=== PATIENT | male | born 1955 | race African-American/Black ===

== ENCOUNTER 2018-02-04 02:34 | Emergency (ER) | payer OTHER ==
--- NOTE | 2018-02-04 03:28 | ER ---
Nurse's Notes [facility] Name: Erick Benson Age: 62 yrs Sex: Male : 1955 Arrival Date: 02/04/2018 Time: 02:35 Bed 7 Private MD: Diagnosis: Breakdown (mechanical) of surgically created arteriovenous fistula Presentation: 02/04 02:41 Presenting complaint: Patient states: Bleeding from dialysis access in left forearm tl2 since Thursday after dialysis. Went to access center on Thursday but it was not bleeding at the time so they sent him home. Started bleeding again tonight on and off. Denies dizziness or nausea. Transition of care: patient was not received from another setting of care. Onset of symptoms was February 02, 2018. Risk Assessment: Do you want to hurt yourself or someone else? Patient reports no desire to harm self or others. Initial Sepsis Screen: Does the patient meet any 2 criteria? No. Patient's initial sepsis screen is negative. Does the patient have a suspected source of infection? No. Patient's initial sepsis screen is negative. Care prior to arrival: None. 02:41 Method Of Arrival: EMS: [facility] tl2 02:41 Acuity: ANCELMO 3 tl2 Triage Assessment: 02:45 General: Appears in no apparent distress. uncomfortable, Behavior is calm, cooperative, tl2 appropriate for age. Pain: Complains of pain in palmar aspect of left forearm. Neuro: Level of Consciousness is awake, alert, obeys commands, Oriented to person, place, time, situation. Neuro: Denies dizziness. Cardiovascular: Denies chest pain. Respiratory: Airway is patent Respiratory effort is even, unlabored, Respiratory pattern is regular, symmetrical. GI: No signs and/or symptoms were reported involving the gastrointestinal system. : No signs and/or symptoms were reported regarding the genitourinary system. Derm: Skin is pink, warm \T\ dry. Injury Description: hole in access point of dialysis port, unable to control bleeding. Historical: - Allergies: 02:45 No Known Allergies; tl2 - Home Meds: 02:45 Sensipar oral oral [Active]; Renvela oral oral [Active]; metoprolol tartrate Oral tl2 [Active]; Nexium Oral [Active]; - PMHx: 02:45 CHF; Renal Disease; Hypertension; dialysis /Thurs/Sat; tl2 - Immunization history:: Adult Immunizations up to date. - Social history:: Smoking status: Patient/guardian denies using tobacco. - Ebola Screening: : No symptoms or risks identified at this time. Screenin:47 Abuse screen: Denies threats or abuse. Nutritional screening: No deficits noted. tl2 Tuberculosis screening: No symptoms or risk factors identified. Fall Risk None identified. Assessment: 02:45 General: see triage assessment. tl2 04:12 Reassessment: Patient appears in no apparent distress at this time. Patient and/or tl2 family updated on plan of care and expected duration. Pain level reassessed. Patient is alert, oriented x 3, equal unlabored respirations, skin warm/dry/pink. Notified pt that we will have to get labs before he can be transferred. Lab at bedside. 07:48 Reassessment: Access port began bleeding, pressure dressing removed and could not tl2 control bleeding. Dr. To notified and assisted with placing a stitch to control bleeding. Procedure successful and pressure dressing applied. Will attempt to call report for transfer. 08:30 Reassessment: Patient and/or family updated on plan of care and expected duration. Pain jl7 level reassessed. Patient is alert, oriented x 3, equal unlabored respirations, skin warm/dry/pink. Vital Signs: 02:45 BP 136 / 75; Pulse 94; Resp 18; Temp 99.5(O); Pulse Ox 99% on R/A; Weight 98.88 kg; tl2 Height 5 ft. 8 in. (172.72 cm); Pain 3/10; 04:00 BP 122 / 64; Pulse 84; Resp 18; Pulse Ox 99% on R/A; tl2 07:15 BP 126 / 71; Pulse 106; Resp 20; Temp 102.8(O); Pulse Ox 100% on R/A; tl2 08:47 BP 98 / 63; Pulse 106; Resp 16; Pulse Ox 95% on R/A; hb 09:05 BP 111 / 62; Pulse 88; Resp 16; Temp 100.5; Pulse Ox 95% ; jl7 02:45 Body Mass Index 33.15 (98.88 kg, 172.72 cm) tl2 ED Course: 02:35 Patient arrived in ED. am2 02:43 Triage completed. tl2 02:45 Arm band placed on right wrist. tl2 02:47 Patient has correct armband on for positive identification. Bed in low position. Call tl2 light in reach. Side rails up X 1. Adult w/ patient. 02:47 Dressings: surgicel and pressure dressing placed over bleeding access port. tl2 02:48 Jitendra Alexander MD is Attending Physician. 04:04 No provider procedures requiring assistance completed. Inserted saline lock: 22 gauge tl1 in right antecubital area, using aseptic technique. 07:34 Radiology exam delayed due to DR IS STITCHING PT. jb2 07:50 Assist provider with laceration repair on palmar aspect of left forearm that was 2.5 tl2 cm. or less using sutures. Set up tray. Performed by Junaid To MD Dressed with 4X4s, modesto wrap Patient tolerated well. 08:07 X-ray completed. Portable x-ray completed in exam room. Patient tolerated procedure jb2 well. 08:07 Chest Single View XRAY In Process Unspecified. EDMS 09:01 Becka Harrington, AMIE is Primary Nurse. tl2 09:05 Patient transferred, IV remains in place. intact, No redness/swelling at site. jl7 Administered Medications: 07:20 Drug: Tylenol 1000 mg Route: PO; tl1 09:06 Follow up: Response: Temperature is decreased jl7 Outcome: 03:28 ER care complete, transfer ordered by . gs 09:05 Transferred by ground EMS to [facility], Transfer form completed. jl7 09:05 Condition: stable 09:05 Discharge instructions given to patient, family, Instructed on the need for transfer, Demonstrated understanding of instructions. 09:44 Patient left the ED. jl7 Signatures: Dispatcher [employer] EDMS Justus Iglesias jb2 Pastora Chahal RN RN tl1 Fanta Krishnamurthy RN RN hb Becka Harrington RN RN tl2 Ranjit Devries RN RN jl7 Keeley Reyes am2 Jitendra Alexander MD MD Corrections: (The following items were deleted from the chart) 08:48 08:47 BP 98 / 63; Pulse 106bpm; Resp 16bpm; Pulse Ox 94% RA; hb hb
--- NOTE | 2018-02-04 03:28 | EDPHYS ---
Physician Documentation [facility] Name: Erick Benson Age: 62 yrs Sex: Male : 1955 Arrival Date: 02/04/2018 Time: 02:35 Bed 7 Private MD: ED Physician Jitendra Alexander HPI: 02/04 03:18 This 62 yrs old Black Male presents to ER via EMS with complaints of Bleeding from gs dialysis port. 03:18 The patient has an AV graft in the dorsal aspect of left forearm. Type of problem: gs bleeding at site. Onset: The symptoms/episode began/occurred just prior to arrival. The malfunction was discovered at home. Associated signs and symptoms: Pertinent positives: bleeding at site, Pertinent negatives: swelling, redness in area. The patient has experienced similar episodes in the past, a few times. The patient has been recently seen by a physician: a general surgeon, 2 day(s) ago. Historical: - Allergies: 02:45 No Known Allergies; tl2 - Home Meds: 02:45 Sensipar oral oral [Active]; Renvela oral oral [Active]; metoprolol tartrate Oral tl2 [Active]; Nexium Oral [Active]; - PMHx: 02:45 CHF; Renal Disease; Hypertension; dialysis Tues/Thurs/Thu; tl2 - Immunization history:: Adult Immunizations up to date. - Social history:: Smoking status: Patient/guardian denies using tobacco. - Ebola Screening: : No symptoms or risks identified at this time. ROS: 03:18 All other systems are negative. gs Exam: 03:18 ENT: Nares patent. No nasal discharge, no septal abnormalities noted. Tympanic gs membranes are normal and external auditory canals are clear. Oropharynx with no redness, swelling, or masses, exudates, or evidence of obstruction, uvula midline. Mucous membranes moist. Chest/axilla: Normal chest wall appearance and motion. Nontender with no deformity. No lesions are appreciated. Cardiovascular: Regular rate and rhythm with a normal S1 and S2. No gallops, murmurs, or rubs. Normal PMI, no JVD. No pulse deficits. Respiratory: Lungs have equal breath sounds bilaterally, clear to auscultation and percussion. No rales, rhonchi or wheezes noted. No increased work of breathing, no retractions or nasal flaring. Abdomen/GI: Soft, non-tender, with normal bowel sounds. No distension or tympany. No guarding or rebound. No evidence of tenderness throughout. Back: No spinal tenderness. No costovertebral tenderness. Full range of motion. Neuro: Awake and alert, GCS 15, oriented to person, place, time, and situation. Cranial nerves II-XII grossly intact. Motor strength 5/5 in all extremities. Sensory grossly intact. Cerebellar exam normal. Normal gait. 03:18 Constitutional: The patient appears alert, awake. 03:18 Musculoskeletal/extremity: Extremities: noted in the dorsal aspect of left forearm: ulcer overlying access graft, minimal bleeding. pt states significant bleeding from site this am, ROM: Circulation is intact in all extremities. Vital Signs: 02:45 BP 136 / 75; Pulse 94; Resp 18; Temp 99.5(O); Pulse Ox 99% on R/A; Weight 98.88 kg; tl2 Height 5 ft. 8 in. (172.72 cm); Pain 3/10; 04:00 BP 122 / 64; Pulse 84; Resp 18; Pulse Ox 99% on R/A; tl2 07:15 BP 126 / 71; Pulse 106; Resp 20; Temp 102.8(O); Pulse Ox 100% on R/A; tl2 08:47 BP 98 / 63; Pulse 106; Resp 16; Pulse Ox 95% on R/A; hb 09:05 BP 111 / 62; Pulse 88; Resp 16; Temp 100.5; Pulse Ox 95% ; jl7 02:45 Body Mass Index 33.15 (98.88 kg, 172.72 cm) tl2 Procedures: 07:54 Performed AV Fistula graft repair. The AV graft fistula was noted to be leaking by the [facility] nursing staff prior to transfer. After prep in sterile standard fashion and injection of 1 cc lidocaine, a single figure of eight stitch was placed and apparent homeostasis was achieved. An modesto wrap pressure dressing was applied snugly but not tight with no apparent continued bleeding from the fistula. The patient was transferred in stable condition. MDM: 02:48 Patient medically screened. 03:18 Differential diagnosis: shunt malfunction, infected shunt. Data reviewed: vital signs, nurses notes. 03:18 ED course: bleeding controlled. 02/04 03:38 Order name: CBC w/o diff; Complete Time: 04:59 02/04 03:38 Order name: BMP; Complete Time: 05:31 02/04 07:21 Order name: Chest Single View XRAY tl1 Administered Medications: 07:20 Drug: Tylenol 1000 mg Route: PO; tl1 09:06 Follow up: Response: Temperature is decreased jl7 Disposition: 02/04/18 03:28 Transfer ordered to [facility]. Diagnosis is Breakdown (mechanical) of surgically created arteriovenous fistula. - Reason for transfer: Higher level of care. - Accepting physician is meth. - Condition is Stable. - Problem is new. - Symptoms have improved. Critical care time excluding procedures: 03:18 Critical care time: Bedside Care: 10 minutes, Consultation: 10 minutes, Family gs Intervention: 10 minutes. Total time: 30 minutes Signatures: Dispatcher [employer] Junaid Sinclair MD MD [facility] Pastora Chahal RN RN tl1 Becka Harrington RN RN tl2 Ranjit Devries RN RN jl7 Jitendra Alexander MD MD Corrections: (The following items were deleted from the chart) 09:44 03:28 02/04/2018 03:28 Transfer ordered to [facility]. Diagnosis is jl7 Breakdown (mechanical) of surgically created arteriovenous fistula. Reason for transfer: Higher level of care. Accepting physician is meth. Condition is Stable. Problem is new. Symptoms have improved.
[2018-02-04 04:57] LABS: Hematocrit 37.3 % (39.6-49.0); MCH 26.6 pg (27.0-35.0); MCV 83.3 fL (80-100); MPV 9.2 fL (7.6-11.3); RBC Red Blood Cell Count 4.48 M/uL (4.33-5.43)
[2018-02-04 05:27] LABS: Potassium 3.8 mmol/L (3.5-5.1)
[2018-02-04] MEDS ORDERED: ACETAMINOPHEN 500 MG TAB ONE (07:17)
[2018-02-04] MEDS ORDERED: LIDOCAINE 2% MPF 5 ML VIAL ONE (07:34)
--- NOTE | 2018-02-04 09:01 | RAD REPORT ---
EXAM DESCRIPTION: RAD - Chest Single View - 02/04/2018 8:10 am CLINICAL HISTORY: Cough, shortness of breath COMPARISON: February 2015 TECHNIQUE: AP portable chest image was obtained [id number] . FINDINGS: Right lung field is clear of an acute infiltrate or mass. Upper lobe vasculature within no rmal limits. Fullness of the right pulmonary artery has not change from the comparison. Cardiac silho uette is enlarged. This limits left base assessment. No large mass or pleural effusions seen. A small er left base infiltrate could be masked. No significant failure or volume overload. No pneumothorax o r large pleural effusion. No gross bony abnormality seen. No acute aortic findings suspected. IMPRESSION: Cardiomegaly without significant failure or volume overload finding. Body habitus and exam technique limit left base assessment. Small infiltrate cannot be excluded.
[2018-02-04 09:59] VITALS: O2SAT 95
[2018-02-04 10:00] VITALS: BP 111/62; TEMP 100.5
== END 2018-02-04 09:44 | disposition short-term general hospital (02) ==
LOC: ER 02:34
PROC: 05WYX3Z Revision of Infusion Device in Upper Vein, External Approach (ICD-10-PCS; principal; 2018-02-04)
DX: T82.510A Breakdown (mechanical) of surgically created arteriovenous fistula, initial encounter (principal); I12.0 Hypertensive chronic kidney disease with stage 5 chronic kidney disease or end stage renal disease; N18.6 End stage renal disease; Z99.2 Dependence on renal dialysis
CPT/HCPCS: 36415; 71045; 80048; 85027; 99285

== ENCOUNTER 2018-02-19 07:44 | Day surgery (SDC) | payer OTHER ==
--- OUTSIDE RECORDS SUMMARY | 2018-02-19 08:01 | XMS REPORT | Clinical Summary ---
:1955 Author Organization [facility] Address [address] [place] [address] Care Team Providers Name Role Phone Asked, No Pcp Primary Care Provider Unavailable Allergies No Known Allergies Current Medications Prescription Sig. Disp. Refills Start Date End Date Status cinacalcet Take 30 mg by Active (SENSIPAR) 30 MG mouth daily. tablet esomeprazole Take 40 mg by Active (NexIUM) 40 MG mouth daily capsule before breakfast. sevelamer (RENVELA) Take 800 mg Active 800 mg tablet by mouth 3 (three) times a day with meals. cholecalciferol, Take 2,000 Active vitamin D3, Units by (VITAMIN D3) 2,000 mouth daily. unit capsule capsule apixaban (ELIQUIS) Take 5 mg by Active 5 mg tablet mouth 2 (two) times a day. lisinopril Take 1 tablet 30 tablet 0 02/13/2018 03/15/2018 Active (PRINIVIL,ZESTRIL) (5 mg total) 5 mg tablet by mouth daily for 30 days. metoprolol Take 1 tablet 30 tablet 0 02/13/2018 03/15/2018 Active succinate XL (50 mg total) (TOPROL-XL) 50 mg by mouth 24 hr tablet daily for 30 days. metoprolol Take 25 mg by 02/12/2018 Discontinued succinate XL mouth daily. (TOPROL-XL) 25 mg 24 hr tablet Active Problems Problem Noted Date MSSA (methicillin susceptible Staphylococcus aureus) 02/08/2018 Bacteremia 02/08/2018 Graft erosion 02/05/2018 Graft erosion, initial encounter 02/04/2018 ESRD (end stage renal disease) 02/04/2018 Chronic systolic heart failure 02/04/2018 PUD (peptic ulcer disease) 02/04/2018 CVA (cerebral vascular accident) 02/04/2018 Encounters Date Type Specialty Care Team Description 02/12/2018 Patient Outreach Quality Marleni Rutherford RN 02/08/2018 Telephone Psychiatry Jan Key MA 02/05/2018 Anesthesia Event General Surgery Kelli Flanagan 02/05/2018 Procedure Pass General Surgery 02/05/2018 Surgery General Surgery Augusto Blanco LEFT UPPER EXTREMITY MD Maurizio AV GRAFT REVISION, and THROMBECTOMY 02/04/2018 - Hospital Encounter General Surgery Yary Awad, ESRD ( end stage 02/12/2018 renal disease) Ashley Borjas, (Primary Dx) 02/04/2018 Procedure Pass General Surgery 02/04/2018 Intake Access N/A after 02/18/2017 Family History Medical History Relation Name Comments Diabetes Father Kidney disease Father Arthritis Mother Relation Name Status Comments Father Mother Social History Tobacco Use Types Packs/Day Years Used Date Former Smoker Cigars Smokeless Tobacco: Never Used Comments: 1 cigar per day, quit 8 years ago Alcohol Use Drinks/Week oz/Week Comments No Sex Assigned at Date Recorded Not on file Last Filed Vital Signs Vital Sign Reading Time Taken Blood Pressure 145/82 02/12/2018 2:00 PM CDT Pulse 108 02/12/2018 2:00 PM CDT Temperature 36.1 C (97 F) 02/12/2018 1:45 PM CDT Respiratory Rate 16 02/12/2018 1:45 PM CDT Oxygen Saturation 96% 02/12/2018 2:00 PM CDT Inhaled Oxygen Concentration - - Weight 103 kg (226 lb 11.2 oz) 02/05/2018 9:26 AM CDT Height 172.7 cm (5' 8") 02/05/2018 9:26 AM CDT Body Mass Index 34.47 02/05/2018 9:26 AM CDT Plan of Treatment Date Type Specialty Care Team Description 02/22/2018 Office Visit General Surgery Augusto Blanco MD [address] [facility] [address] [place] [address] 02/26/2018 Office Visit Internal Medicine Fredi Ely MD [address] [facility] [address] [place] [address] Health Maintenance Due Date Last Done Comments COLON CANCER SCREENING 02/08/2004 SHINGRIX VACCINE (#1) 02/08/2004 ZOSTER VACCINE 2014 INFLUENZA VACCINE 03/10/2018 Implants Implanted Type Area Roller Helper Device Expiration Model / Identifier Date Serial / Lot Set Cathztn Hmodial Lngtrm Accs 15fr 28cm Edge Simplicity - [id number] Surgical N/A: ARROW 10/07/2020 [place] [id number] IM / Implanted: 02/12/2018 (Quantity not on file) Implants; N/A INTERNATIONAL / Expand[employer]; INC [id number] Extenders; Surgical Wires Graft Vasclr Van Lear-Marty Stdwl 10cm 6mm - [id number] Vascular N/A: W L GORE 09/21/2022 [id number] / Implanted: 02/05/2018 (Quantity not on file) Graft N/A [id number] / [id number] Procedures Procedure Name Priority Date/Time Associated Comments Diagnosis IR TUNNELED DIALYSIS Routine 02/12/2018 1:26 Results for this CATHETER PLACEMENT PM CDT procedure are in the results section. HEMOGLOBIN & HEMATOCRIT STAT 02/12/2018 5:30 Results for this AM CDT procedure are in the results section. SMEAR REVIEW Routine 02/12/2018 4:00 Results for this AM CDT procedure are in the results section. ESTIMATED GFR Routine 02/12/2018 4:00 Results for this AM CDT procedure are in the results section. PHOSPHORUS LEVEL Routine 02/12/2018 4:00 Results for this AM CDT procedure are in the results section. MAGNESIUM LEVEL Routine 02/12/2018 4:00 Results for this AM CDT procedure are in the results section. BASIC METABOLIC PANEL Routine 02/12/2018 4:00 Results for this AM CDT procedure are in the results section. HC COMPLETE BLD COUNT Routine 02/12/2018 4:00 Results for this W/AUTO DIFF AM CDT procedure are in the results section. ECHOCARDIOGRAM Routine 02/11/2018 10:39 Results for this TRANSESOPHAGEAL W AM CDT procedure are in DOPPLER COLORFLOW the results section. HEMODIALYSIS Routine 02/11/2018 8:10 AM CDT ESTIMATED GFR Routine 02/11/2018 4:00 Results for this AM CDT procedure are in the results section. BILIRUBIN DIRECT Routine 02/11/2018 4:00 Results for this AM CDT procedure are in the results section. COMPREHENSIVE METABOLIC Routine 02/11/2018 4:00 Results for this PANEL AM CDT procedure are in the results section. HC COMPLETE BLD COUNT Routine 02/11/2018 4:00 Results for this W/AUTO DIFF AM CDT procedure are in the results section. HEMOGLOBIN & HEMATOCRIT STAT 02/10/2018 2:05 Results for this PM CDT procedure are in the results section. HC COMPLETE BLD COUNT Routine 02/10/2018 4:35 Results for this W/AUTO DIFF AM CDT procedure are in the results section. ESTIMATED GFR Routine 02/10/2018 4:00 Results for this AM CDT procedure are in the results section. COMPREHENSIVE METABOLIC Routine 02/10/2018 4:00 Results for this PANEL AM CDT procedure are in the results section. HEMODIALYSIS Routine 02/09/2018 1:35 PM CDT CBC WITH PLATELET AND Routine 02/09/2018 4:30 Results for this DIFFERENTIAL AM CDT procedure are in the results section. ESTIMATED GFR Routine 02/09/2018 4:00 Results for this AM CDT procedure are in the results section. COMPREHENSIVE METABOLIC Routine 02/09/2018 4:00 Results for this PANEL AM CDT procedure are in the results section. PHOSPHORUS LEVEL Routine 02/09/2018 4:00 Results for this AM CDT procedure are in the results section. MAGNESIUM LEVEL Routine 02/09/2018 4:00 Results for this AM CDT procedure are in the results section. ECG 12-LEAD Routine 02/08/2018 7:09 Results for this PM CDT procedure are in the results section. US DUPLEX HEMODIALYSIS Routine 02/08/2018 6:05 Results for this AVG AVF ACCESS PM CDT procedure are in the results section. ESTIMATED GFR Routine 02/08/2018 3:57 Results for this PM CDT procedure are in the results section. COMPREHENSIVE METABOLIC Routine 02/08/2018 3:57 Results for this PANEL PM CDT procedure are in the results section. ESTIMATED GFR Routine 02/08/2018 2:00 Results for this AM CDT procedure are in the results section. PHOSPHORUS LEVEL Routine 02/08/2018 2:00 Results for this AM CDT procedure are in the results section. MAGNESIUM LEVEL Routine 02/08/2018 2:00 Results for this AM CDT procedure are in the results section. BASIC METABOLIC PANEL Routine 02/08/2018 2:00 Results for this AM CDT procedure are in the results section. HC COMPLETE BLD COUNT Routine 02/08/2018 2:00 Results for this W/AUTO DIFF AM CDT procedure are in the results section. BLOOD CULTURE, AEROBIC & Routine 02/08/2018 2:00 Results for this ANAEROBIC AM CDT procedure are in the results section. BLOOD CULTURE, AEROBIC & Routine 02/08/2018 1:45 Results for this ANAEROBIC AM CDT procedure are in the results section. IONIZED CALCIUM Routine 2018 1:36 Results for this PM CDT procedure are in the results section. PARTIAL THROMBOPLASTIN Routine 2018 5:39 Results for this TIME (PTT) AM CDT procedure are in the results section. ESTIMATED GFR Routine 2018 5:39 Results for this AM CDT procedure are in the results section. PROTHROMBIN TIME WITH Routine 2018 5:39 Results for this INR AM CDT procedure are in the results section. FIBRINOGEN Routine 2018 5:39 Results for this AM CDT procedure are in the results section. PHOSPHORUS LEVEL Routine 2018 5:39 Results for this AM CDT procedure are in the results section. MAGNESIUM LEVEL Routine 2018 5:39 Results for this AM CDT procedure are in the results section. BASIC METABOLIC PANEL Routine 2018 5:39 Results for this AM CDT procedure are in the results section. HC COMPLETE BLD COUNT Routine 2018 5:39 Results for this W/AUTO DIFF AM CDT procedure are in the results section. TRANSFUSE RED BLOOD Routine 02/06/2018 6:37 CELLS PM CDT HEPATITIS B SURFACE Routine 02/06/2018 2:19 Results for this ANTIGEN PM CDT procedure are in the results section. SMEAR REVIEW STAT 02/06/2018 12:55 Results for this PM CDT procedure are in the results section. HC COMPLETE BLD COUNT STAT 02/06/2018 12:55 Results for this W/AUTO DIFF PM CDT procedure are in the results section. XR CHEST 1 VW PORTABLE STAT 02/06/2018 12:07 Results for this PM CDT procedure are in the results section. HEMODIALYSIS CATHETER Routine 02/06/2018 11:36 ESRD (end stage Results for this PLACEMENT AM CDT renal disease) procedure are in the results section. HEMODIALYSIS Routine 02/06/2018 11:21 AM CDT ESTIMATED GFR STAT 02/06/2018 6:50 Results for this AM CDT procedure are in the results section. PHOSPHORUS LEVEL STAT 02/06/2018 6:50 Results for this AM CDT procedure are in the results section. MAGNESIUM LEVEL STAT 02/06/2018 6:50 Results for this AM CDT procedure are in the results section. BASIC METABOLIC PANEL STAT 02/06/2018 6:50 Results for this AM CDT procedure are in the results section. VANCOMYCIN LEVEL, RANDOM Routine 02/06/2018 6:50 Results for this AM CDT procedure are in the results section. GASTROINTESTINAL PANEL Routine 02/06/2018 4:15 Results for this AM CDT procedure are in the results section. MT AN ELECTIVE Routine 02/05/2018 10:23 ENDOTRACHEAL AIRWAY AM CDT Procedure Note - Kelli Flanagan - 02/05/2018 10:23 AM CDT Airway Date/Time: 02/05/2018 10:07 AM Performed by: KELLI FLANAGAN Authorized by: TRISH RICHARDS Location: OR Urgency: Elective Difficult Airway: No Resident/WASHER MACHINE/AA: KELLI FLANAGAN Preoxygenated with 100% O2: Yes Mask Ventilation: Easy mask Final Airway Type: Endotracheal airway Final Endotracheal Airway: ETT Cuffed: Yes Technique Used: Direct laryngoscopy Insertion Site: Oral Blade Type: Alejandre Laryngoscope Blade/Videolaryngoscope Blade Size: 2 ETT Size (mm): 8.0 Cuff at minimum occlusion pressure: Yes Measured from: Gums ETT to Gums (cm): 22 Placement Verified by: CO2 detection, direct visualization and equal breath sounds Laryngoscopic view: Grade I - full view of glottis Rapid Sequence Induction (RSI): No Modified RSI: No Number of Attempts at Approach: 1 Atraumatic intubation CREATION, AV FISTULA, UPPER 02/05/2018 10:06 AM CDT EXTREMITY, DISTAL HEMODIALYSIS Routine 02/05/2018 9:19 AM CDT PREPARE RBC STAT 02/05/2018 9:00 AM CDT PREPARE RBC STAT 02/05/2018 9:00 AM CDT TYPE AND SCREEN STAT 02/05/2018 9:00 AM CDT ESTIMATED GFR Routine 02/05/2018 12:37 AM CDT MAGNESIUM LEVEL Routine 02/05/2018 12:37 AM CDT PHOSPHORUS LEVEL Routine 02/05/2018 12:37 AM CDT BASIC METABOLIC PANEL Routine 02/05/2018 12:37 AM CDT HC COMPLETE BLD COUNT W/AUTO Routine 02/04/2018 11:50 PM CDT Results for this DIFF procedure are in the results section. BLOOD CULTURE, AEROBIC & Routine 02/04/2018 11:50 PM CDT Results for this ANAEROBIC procedure are in the results section. US HEPATIC Routine 02/04/2018 9:20 PM CDT ECHOCARDIOGRAM 2D COMPLETE W STAT 02/04/2018 6:52 PM CDT Results for this MMODE SPECTRAL COLOR DOPPLER procedure are in the (34078) results section. XR CHEST 1 VW PORTABLE Routine 02/04/2018 4:27 PM CDT PHOSPHORUS LEVEL Routine 02/04/2018 2:45 PM CDT MAGNESIUM LEVEL Routine 02/04/2018 2:45 PM CDT HEPATIC FUNCTION PANEL Routine 02/04/2018 2:45 PM CDT ESTIMATED GFR Routine 02/04/2018 2:45 PM CDT HEMOGLOBIN A1C Routine 02/04/2018 2:45 PM CDT B NATRIURETIC PEPTIDE Routine 02/04/2018 2:45 PM CDT BASIC METABOLIC PANEL Routine 02/04/2018 2:45 PM CDT PARTIAL THROMBOPLASTIN TIME Routine 02/04/2018 2:45 PM CDT Results for this (PTT) procedure are in the results section. PROTHROMBIN TIME WITH INR Routine 02/04/2018 2:45 PM CDT HC COMPLETE BLD COUNT W/AUTO Routine 02/04/2018 2:45 PM CDT Results for this DIFF procedure are in the results section. ECG 12-LEAD Routine 02/04/2018 2:16 PM CDT after 02/18/2017 Results IR Tunneled Dialysis Catheter Placement (02/12/2018 1:26 PM) Narrative Performed At Procedure: Placement of tunneled dialysis catheter RADIANT Clinical History: End-stage renal disease Sedation: Versed and fentanyl were utilized for monitored conscious sedation during the procedure. The patient was transferred to the recovery room at the end of the procedure for further monitoring. [id number]-[id number] time 19 minutes Anesthesia: Local Radiation dose: Ka,r=22 mGy Technique: After discussing the risks and benefits of the procedure and moderate conscious sedation with the patient he agreed to the procedure. A recorded image of the patent right internal jugular vein was obtained. All elements of maximal sterile barrier technique were followed. After prepping and draping the right side of the neck and chest, local anesthesia was administered and the internal jugular vein accessed with a 21-gauge needle under real-time ultrasound guidance. A 0.018 guidewire was advanced to the right atrium under fluoroscopy. Local anesthesia was then administered from the infraclavicular region to the initial puncture site. The 23 cm Arrow Edge dialysis catheter was brought through the tunnel. A 5 Tuvaluan catheter was placed over the initially placed guidewire and an Amplatz guidewire advanced into the inferior vena cava. After dilatation, the dialysis catheter was placed with its tip in the superior vena cava. The lumens aspirated and injected easily. They were flushed with heparin. The initial puncture site was sealed with Dermabond and the catheter exit site closed with 2-0 silk suture. Complications: None Impression: Successful placement of a right internal jugular vein tunneled dialysis catheter as described above. Blood Loss: Less than 5 mL [facility]-[id number] Procedure Note Interface, Radiology Results Incoming - 02/12/2018 4:10 PM CDT Procedure: Placement of tunneled dialysis catheter Clinical History: End-stage renal disease Sedation: Versed and fentanyl were utilized for monitored conscious sedation during the procedure. The patient was transferred to the recovery room at the end of the procedure for further monitoring. Jkao-lp-[id number] time 19 minutes Anesthesia: Local Radiation dose: Ka,r=22 mGy Technique: After discussing the risks and benefits of the procedure and moderate conscious sedation with the patient he agreed to the procedure. A recorded image of the patent right internal jugular vein was obtained. All elements of maximal sterile barrier technique were followed. After prepping and draping the right side of the neck and chest, local anesthesia was administered and the internal jugular vein accessed with a 21- gauge needle under real-time ultrasound guidance. A 0.018 guidewire was advanced to the right atrium under fluoroscopy. Local anesthesia was then administered from the infraclavicular region to the initial puncture site. The 23 cm Arrow Edge dialysis catheter was brought through the tunnel. A 5 Tuvaluan catheter was placed over the initially placed guidewire and an Amplatz guidewire advanced into the inferior vena cava. After dilatation , the dialysis catheter was placed with its tip in the superior vena cava. The lumens aspirated and injected easily. They were flushed with heparin. The initial puncture site was sealed with Dermabond and the catheter exit site closed with 2-0 silk suture. Complications: None Impression: Successful placement of a right internal jugular vein tunneled dialysis catheter as described above. Blood Loss: Less than 5 mL [facility]-[id number] Performing Organization Address [facility] Phone Number [address] [address] Hemoglobin & hematocrit (02/12/2018 5:30 AM)Only the most recent of2 resultswithin the time period is included. HGB 7.3 (L) 14.0 - 18.0 g/dL [facility] DEPARTMENT OF PATHOLOGY AND GENOMIC MEDICINE HCT 20.5 (L) 41.0 - 51.0 % [facility] DEPARTMENT OF PATHOLOGY AND GENOMIC MEDICINE Specimen Blood Performing Organization Address [facility] Phone Number [facility] DEPARTMENT OF PATHOLOGY AND [address] [place] [phone] GENOMIC MEDICINE Smear review (02/12/2018 4:00 AM)Only the most recent of2 resultswithin the time period is included. Platelet slide review Erika slt decr [facility] DEPARTMENT OF PATHOLOGY AND GENOMIC MEDICINE Anisocytosis Moderate [facility] DEPARTMENT OF PATHOLOGY AND GENOMIC MEDICINE Polychromasia Moderate [facility] DEPARTMENT OF PATHOLOGY AND GENOMIC MEDICINE Target cells Moderate (A) [facility] DEPARTMENT OF PATHOLOGY AND GENOMIC MEDICINE Performing Organization Address [facility] Phone Number [facility] DEPARTMENT OF PATHOLOGY AND [address] [place] [phone] GENOMIC MEDICINE Estimated GFR (02/12/2018 4:00 AM)Only the most recent of10 resultswithin the time period is included. GFR Non Af Amer 11 (A) mL/min/1.73 m2 [facility] DEPARTMENT OF PATHOLOGY AND GENOMIC MEDICINE GFR Af Amer 13 (A) mL/min/1.73 m2 [facility] DEPARTMENT OF Comment: PATHOLOGY AND GENOMIC Chronic kidney disease: <60 mL/min/1.73m2 MEDICINE Kidney failure: <15 mL/min/1.73m2 The estimated GFR is calculated from the IDMS-traceable Modification of Diet in Renal Disease Equation. The accuracy of the calculation is poor when the creatinine is normal. Calculated values >90 mL/min/1.73m2 are not reported. This equation has not been validated in children (<18 years), women, the elderly (>70 years), or ethnic groups other than Caucasians and Americans. Specimen Plasma specimen Performing Organization Address City/State/Zipcode Phone Number [facility] DEPARTMENT OF PATHOLOGY AND [address] [place] [address] [facility] CBC with platelet and differential (02/12/2018 4:00 AM)Only the most recent of9 resultswithin the time period is included. WBC 4.58 4.50 - 11.00 k/uL [facility] DEPARTMENT OF PATHOLOGY AND GENOMIC MEDICINE RBC 2.53 (L) 4.40 - 6.00 m/uL [facility] DEPARTMENT OF PATHOLOGY AND GENOMIC MEDICINE HGB 6.8 (LL) 14.0 - 18.0 g/dL [facility] DEPARTMENT OF Comment: PATHOLOGY AND GENOMIC Results called to and read back by GAMAL/Mikayla (name/location) at [facility] 02/12/201804:36 (date/time) by 465. HCT 19.2 (L) 41.0 - 51.0 % [facility] DEPARTMENT OF PATHOLOGY AND GENOMIC MEDICINE MCV 75.9 (L) 82.0 - 100.0 fL [facility] DEPARTMENT OF PATHOLOGY AND GENOMIC MEDICINE MCH 26.9 (L) 27.0 - 34.0 pg [facility] DEPARTMENT OF PATHOLOGY AND GENOMIC MEDICINE MCHC 35.4 31.0 - 37.0 g/dL [facility] DEPARTMENT OF PATHOLOGY AND GENOMIC MEDICINE RDW - SD 48.1 37.0 - 55.0 fL [facility] DEPARTMENT OF PATHOLOGY AND GENOMIC MEDICINE MPV 9.5 8.8 - 13.2 fL [facility] DEPARTMENT OF PATHOLOGY AND GENOMIC MEDICINE Platelet count 237 150 - 400 k/uL [facility] DEPARTMENT OF PATHOLOGY AND GENOMIC MEDICINE Nucleated RBC 0.00 /100 WBC [facility] DEPARTMENT OF PATHOLOGY AND GENOMIC MEDICINE Neutrophils 68.4 39.0 - 69.0 % [facility] DEPARTMENT OF PATHOLOGY AND GENOMIC MEDICINE Lymphocytes 8.7 (L) 25.0 - 45.0 % [facility] DEPARTMENT OF PATHOLOGY AND GENOMIC MEDICINE Monocytes 17.7 (H) 0.0 - 10.0 % [facility] DEPARTMENT OF PATHOLOGY AND GENOMIC MEDICINE Eosinophils 3.7 0.0 - 5.0 % [facility] DEPARTMENT OF PATHOLOGY AND GENOMIC MEDICINE Basophils 0.4 0.0 - 1.0 % [facility] DEPARTMENT OF PATHOLOGY AND GENOMIC MEDICINE Immature granulocytes 1.1 (H)Comment: 0.0 - 1.0 % [facility] DEPARTMENT OF "Immature PATHOLOGY AND GENOMIC granulocytes" MEDICINE (promyelocytes, myelocytes, metamyelocytes) Specimen Blood Performing Organization Address City/[facility] Phone Number [facility] DEPARTMENT OF PATHOLOGY AND [address] [place] [address] Phosphorus level (02/12/2018 4:00 AM)Only the most recent of7 resultswithin the time period is included. Phosphorus 2.3 (L) 2.4 - 4.5 mg/dL [facility] DEPARTMENT OF PATHOLOGY AND GENOMIC MEDICINE Specimen Plasma specimen Performing Organization Address [facility] Phone Number [facility] DEPARTMENT OF PATHOLOGY AND [address] [place] [address] Magnesium level (02/12/2018 4:00 AM)Only the most recent of7 resultswithin the time period is included. Magnesium 2.0 1.6 - 2.4 mg/dL [facility] DEPARTMENT OF PATHOLOGY AND GENOMIC MEDICINE Specimen Plasma specimen Performing Organization Address [facility] Phone Number [facility] DEPARTMENT OF PATHOLOGY AND [address] [place] [address] Basic metabolic panel (02/12/2018 4:00 AM)Only the most recent of6 resultswithin the time period is included. Sodium 143 135 - 148 mEq/L [facility] DEPARTMENT OF PATHOLOGY AND GENOMIC MEDICINE Potassium 3.6 3.5 - 5.0 mEq/L [facility] DEPARTMENT OF PATHOLOGY AND GENOMIC MEDICINE Chloride 100 98 - 112 mEq/L [facility] DEPARTMENT OF PATHOLOGY AND GENOMIC MEDICINE CO2 28 24 - 31 mEq/L [facility] DEPARTMENT OF PATHOLOGY AND GENOMIC MEDICINE Anion gap 15@ANIO 7 - 15 mEq/L [facility] DEPARTMENT OF PATHOLOGY AND GENOMIC MEDICINE BUN 24 (H) 8 - 23 mg/dL [facility] DEPARTMENT OF PATHOLOGY AND GENOMIC MEDICINE Creatinine 5.3 (H) 0.7 - 1.2 mg/dL [facility] DEPARTMENT OF PATHOLOGY AND GENOMIC MEDICINE Glucose 88 65 - 99 mg/dL [facility] DEPARTMENT OF PATHOLOGY AND GENOMIC MEDICINE Calcium 7.7 (L) 8.8 - 10.2 mg/dL [facility] DEPARTMENT OF PATHOLOGY AND GENOMIC MEDICINE Specimen Plasma specimen Performing Organization Address City/State/Zipcode Phone Number [facility] DEPARTMENT OF PATHOLOGY AND [address] [place] [phone] [facility] Echocardiogram transesophageal (02/11/2018 10:39 AM) Narrative Performed At [facility] Transesophageal Echo Report [address], [place], [place] [address] Pat.Name:ERICK BENSON Pat.ID:[id number] .Date: 02/11/2018Refer.MD:YARY AWAD MD Exam Time: 9:19:00 AMStudy Type:VAUGHN Height:68inWeight: 226lb BSA: 2.15 m2 DOBAge:1955,63Y Sex: MALEBP:137/65 HR:68 bpmSonogrphr: David Malave MD Pat. Stat.:Inpatient Study Status:Final Echo Event ID:[id number] Order ID:[id number] Reason for Study:R/O ENDOCARDITIS History / Clinical:Chronic Renal Failure, Congestive Heart Failure, Hyperlipidemia, Hypertension Procedures:Transesophageal Echo with Colorflow Doppler Race:B FINDINGS: VAUGHN:The attending drawer upfitter performed the VAUGHN procedure and waspresent for the entire duration. The patient was counseledand an informed consent was obtained. Topical and intravenousanesthesia was administered. The esophagus was intubatedwithout difficulty. The probe was passed to the gastricfundus and all standard echocardiographic views wereobtained. The patient tolerated the procedure well. LV: LV size is normal. LV EF is lower limits of normal. Overall wallmotion is lower limits of normal. Estimated EF is 50-54%. RV: RV size is moderately enlarged. RV systolic function is moderatelydepressed. LA: LA volume is normal. No thrombus or mass is visualized in theLA or LA appendage. RA: RA volume is enlarged. AO: Aortic root diameter is normal. SANDY: No pericardial effusion. IAS:Interatrial septum bulges to the left, consistent with high RApressure. AV: Mild to moderate thickening and calcification of AV leaflets. MV: No structural MV abnormalities noted. Moderate mitral regurgitation. PV: No structural PV abnormalities noted. TV: Dilated tricuspid annulus. Moderate tricuspid regurgitation Other:Estimated PA systolic pressure is 50 mmHg, assuming a mean RAPof 15 mmHg. VAUGHN: Anesthesia: Moderate SedationASA Class: 4 Physician: Cuco Kiran MD Release Coordinator: David Malave MD Pre TEEBP HR Post VAUGHN BP HR 137/65 14282/56 69 Meds:Viscous xylocaine, Cetacaine spray to oropharynx, Versed 2 mg IV, Fentanyl 25 mcg IV Complications: None Condition: Stable MEASUREMENTS: DOPPLER LVOT Stroke Vol LVOT 2.2 cmLVOT CO4.1 l/min LVOT TVI15.5 cmLVOT CI1.9 l/m/m2 LVOT Tm318 oiawGT39 bpm LVOT SV 58.8 ml MV PISA MV AliasVel 26.5 cm/sMV pkVel 512.6 cm/s MV PISA rad0.7 cmMV ERO 0.1 cm2 MV Flw74.3 cc/sMV RgVol26.3 cc Signed 02/11/2018 10:35 AM Ccuo Kiran MD Procedure Note Interface, Radiology Results In - 02/11/2018 10:40 AM CDT Transesophageal Echo Report [id number], [place], [place] [address] Pat.Name: ERICK BENSON Pat.ID: [id number] .Date: 02/11/2018 Refer.MD: YARY AWAD MD Exam Time: 9:19:00 AM Study Type:VAUGHN Height: 68in Weight: 226lb BSA: 2.15 m2 Age: 7 1955,63Y Sex: MALE BP: 137/65 HR: 68 bpm Sonogrphr: David Malave MD Pat. Stat.:Inpatient Study Status:Final Echo Event ID:[id number] Order ID: [id number] Reason for Study:R/O ENDOCARDITIS History / Clinical:Chronic Renal Failure, Congestive Heart Failure, Hyperlipidemia, Hypertension Procedures:Transesophageal Echo with Colorflow Doppler Race: B FINDINGS: VAUGHN: The attending drawer upfitter performed the VAUGHN procedure and was present for the entire duration. The patient was counseled and an informed consent was obtained. Topical and intravenous anesthesia was administered. The esophagus was intubated without difficulty. The probe was passed to the gastric fundus and all standard echocardiographic views were obtained. The patient tolerated the procedure well. LV: LV size is normal. LV EF is lower limits of normal. Overall wall motion is lower limits of normal. Estimated EF is 50-54%. RV: RV size is moderately enlarged. RV systolic function is moderately depressed. LA: LA volume is normal. No thrombus or mass is visualized in the LA or LA appendage. RA: RA volume is enlarged. AO: Aortic root diameter is normal. SANDY: No pericardial effusion. IAS: Interatrial septum bulges to the left, consistent with high RA pressure. AV: Mild to moderate thickening and calcification of AV leaflets. MV: No structural MV abnormalities noted. Moderate mitral regurgitation. PV: No structural PV abnormalities noted. TV: Dilated tricuspid annulus. Moderate tricuspid regurgitation Other: Estimated PA systolic pressure is 50 mmHg, assuming a mean RAP of 15 mmHg. VAUGHN: Anesthesia: Moderate Sedation ASA Class: 4 Physician: Cuco Kiran MD Release Coordinator: David Malave MD Pre VAUGHN BP HR Post VAUGHN BP HR 137/65 68 120/56 69 Meds: Viscous xylocaine, Cetacaine spray to oropharynx, Versed 2 mg IV, Fentanyl 25 mcg IV Complications: None Condition: Stable MEASUREMENTS: DOPPLER LVOT Stroke Vol LVOT 2.2 cm LVOT CO 4.1 l/min LVOT TVI 15.5 cm LVOT CI 1.9 l/m/m2 LVOT Tm 318 msec HR 69 bpm LVOT SV 58.8 ml MV PISA MV AliasVel 26.5 cm/s MV pkVel 512.6 cm/s MV PISA rad 0.7 cm MV ERO 0.1 cm2 MV Flw 74.3 cc/s MV RgVol 26.3 cc Signed 02/11/2018 10:35 AM Cuco Kiran MD Performing Organization Address City/[facility] Phone Number [facility] [address] [place] [address] Bilirubin direct (02/11/2018 4:00 AM) Bilirubin direct 6.4 (H) 0.0 - 0.3 mg/dL [facility] DEPARTMENT OF PATHOLOGY AND GENOMIC MEDICINE Specimen Plasma specimen Performing Organization Address [facility] Phone Number [facility] DEPARTMENT OF PATHOLOGY AND [address] [place] [address] GENOMIC MEDICINE Comprehensive metabolic panel (02/11/2018 4:00 AM)Only the most recent of4 resultswithin the time period is included. Sodium 142 135 - 148 mEq/L [facility] DEPARTMENT OF PATHOLOGY AND GENOMIC MEDICINE Potassium 4.2 3.5 - 5.0 mEq/L [facility] DEPARTMENT OF PATHOLOGY AND GENOMIC MEDICINE Chloride 98 98 - 112 mEq/L [facility] DEPARTMENT OF PATHOLOGY AND GENOMIC MEDICINE CO2 27 24 - 31 mEq/L [facility] DEPARTMENT OF PATHOLOGY AND GENOMIC MEDICINE Anion gap 17@ANIO (H) 7 - 15 mEq/L [facility] DEPARTMENT OF PATHOLOGY AND GENOMIC MEDICINE BUN 46 (H) 8 - 23 mg/dL [facility] DEPARTMENT OF PATHOLOGY AND GENOMIC MEDICINE Creatinine 8.0 (H) 0.7 - 1.2 mg/dL [facility] DEPARTMENT OF PATHOLOGY AND GENOMIC MEDICINE Glucose 74 65 - 99 mg/dL [facility] DEPARTMENT OF PATHOLOGY AND GENOMIC MEDICINE Calcium 7.4 (L) 8.8 - 10.2 mg/dL [facility] DEPARTMENT OF PATHOLOGY AND GENOMIC MEDICINE Protein 6.0 (L) 6.3 - 8.3 g/dL [facility] DEPARTMENT OF Comment: PATHOLOGY AND GENOMIC [place] 4.6-7.0 g/dL MEDICINE 1 week 4.4-7.6 g/dL 7 months-1year5.1-7.3 g/dL 1-2 years5.6-7.5 g/dL >3 years6.0-8.0 g/dL 18-150 6.3-8.3 g/dL Albumin 2.0 (L) 3.5 - 5.0 g/dL [facility] DEPARTMENT OF PATHOLOGY AND GENOMIC MEDICINE A/G ratio 0.5 (L) 0.7 - 3.8 [facility] DEPARTMENT OF PATHOLOGY AND GENOMIC MEDICINE Alkaline phosphatase 60 40 - 129 U/L [facility] DEPARTMENT OF PATHOLOGY AND GENOMIC MEDICINE AST 23 10 - 50 U/L [facility] DEPARTMENT OF PATHOLOGY AND GENOMIC MEDICINE ALT <5 (A) 5 - 50 U/L [facility] DEPARTMENT OF PATHOLOGY AND GENOMIC MEDICINE Total bilirubin 7.2 (H) 0.0 - 1.2 mg/dL [facility] DEPARTMENT OF PATHOLOGY AND GENOMIC MEDICINE Specimen Plasma specimen Performing Organization Address City/State/Zipcode Phone Number [facility] DEPARTMENT OF PATHOLOGY AND [address] [place] [address] [facility] MEDICINE ECG 12 lead (02/08/2018 7:09 PM)Only the most recent of2 resultswithin the time period is included. Ventricular rate 69 HM MUSE Atrial rate 69 HM MUSE MT interval 230 HM MUSE QRSD interval 116 HM MUSE QT interval 510 [facility] MUSE QTC interval 546 [facility] MUSE P axis 1 5 H MUSE QRS axis 1 262 [facility] MUSE T wave axis 26 [facility] MUSE EKG impression Sinus rhythm with 1st degree AV block with premature supraventricular complexes-Right bundle branch block-Possible Anterolateral infarct , age undetermined-Abnormal ECG-In automated comparison with ECG of Jan-2018 14:16,-Sinus rhythm has replaced [facility] MUSE Atrial fibrillation-Nonspecific T wave abnormality no longer evident in Inferior leads-Electronically Signed By Ada Wynne ([id number]) on 2017 8:04:48 AM Performing Organization Address City/State/Zipcode Phone Number [facility] MUSE [address] [phone] Pv duplex hemodialysis avg avf access (02/08/2018 6:05 PM) Narrative Performed At [facility] Vascular Ultrasound Laboratory AV Graft - Fistula Report [address] [place] [address] Pat.Name:ERICK BENSON Pat.ID:[id number] .Date: 02/08/2018Refer.MD:ASHLEY BORJAS MD Exam Time: 3:41:00 PMStudy Type:AV Graft - Fistula Height:68inDOBAge: 1955,63Y Sex: MALESonogrphr: Christiansen Vi, RVT Pat. Stat.:Inpatient Room:[address] TapeVol: , CPT - 4: [address]359 Echo Event ID:[id number] Order ID:[id number] Reason for Study:Left arm pain and swelling, left AVG bledding. S/P left upper extremity AV graft revision and thrombectomy, excision of pseudoaneurysm on 02/05/2018. Procedures:Colorflow, Grayscale/2D, Pulsed wave Doppler Race:B SUMMARY: DUPLEX SCAN OBSERVATIONS: LEFT: The brachial artery to brachial vein AV loop graft is visualized in the forearm. Disturbed colorflow and Doppler signals are seen at the feeding brachial artery, throughout the AVF and into the draining brachial vein. There is a Van Lear-Marty graft that anastomosed to the arterial end of the AV Graft with calcified material are noted. Elevated velocity of 470 cm/sec is seen at the proximal Van Lear-Marty graft. Colorflow and Doppler signals are disturbed. The arterial anastomosis, arterial side, venous side, and venous anastomosis are patent. There is patent stent noted at the proximal upper arm. Volume flow of brachial artery is 1562 cc/min. DOPPLER FINDINGS: ARTERYLOCATIONPSV (cm/sec) LEFTBrachialProximal-third 186 Mid-bjdyf759 Distal- Brachial A-Brachial V Arterial Anastomosis 161 AVGProximal graft Anast 470 (Ratio 2.9) Arterial side FA Prox 151 Arterial side FA Mid 121 Mid Uuofg121 Venous side FA Mid 166 Venous side FA Prox 114 Venous side FA stent 143 Venous Anastomosis 190 Brachial veinDistal UA166 Mid-UA161 Proximal UA75 Axillary vein 61 Subclavian vein 66 VOLUME FLOW: [id number] cc/min 1562 cc/min PRELIMINARY FINDINGS: 1. Patent left brachial artery to brachial vein AV loop graft in the forearm. 2. >50% stenosis at proximalization Van Lear-Marty graft which connecting end to end to the arterial side. 3. Patent stent noted at the left proximal upper arm. 4.Volume ofleft brachial artery is 1562 cc/min. PHYSICIAN INTERPRETATION: Increased flow volume. >50% stenosis at proximalization Van Lear-Marty graft which connecting end to end to the arterial side. Patent stent noted at the left proximal upper arm. Signed 02/09/2018 12:13 AM Diomedes Calderon MD, RPVI Procedure Note Interface, Radiology Results In - 02/09/2018 12:15 AM CDT Vascular Ultrasound Laboratory AV Graft - Fistula Report [address] [place] [address] Pat.Name: ERICK BENSON Pat.ID: [id number] .Date: 02/08/2018 Refer.MD: ASHLEY BORJAS MD Exam Time: 3:41:00 PM Study Type:AV Graft - Fistula Height: 68in Age: 7 1955,63Y Sex: MALE Sonogrphr: Christiansen Vi, RVT Pat. Stat.:Inpatient Room: [address] Tape Vol: HV, CPT - 4: [address] Echo Event ID:[id number] Order ID: [id number] Reason for Study:Left arm pain and swelling, left AVG bledding. S/P left upper extremity AV graft revision and thrombectomy, excision of pseudoaneurysm on 02/05/2018. Procedures:Colorflow, Grayscale/2D, Pulsed wave Doppler Race: B SUMMARY: DUPLEX SCAN OBSERVATIONS: LEFT: The brachial artery to brachial vein AV loop graft is visualized in the forearm. Disturbed colorflow and Doppler signals are seen at the feeding brachial artery, throughout the AVF and into the draining brachial vein. There is a Van Lear-Marty graft that anastomosed to the arterial end of the AV Graft with calcified material are noted. Elevated velocity of 470 cm/sec is seen at the proximal Van Lear-Marty graft. Colorflow and Doppler signals are disturbed. The arterial anastomosis, arterial side, venous side, and venous anastomosis are patent. There is patent stent noted at the proximal upper arm. Volume flow of brachial artery is 1562 cc/min. DOPPLER FINDINGS: ARTERY LOCATION PSV (cm/sec) LEFT Brachial Proximal-third 186 Mid-third 197 Distal-third 194 Brachial A-Brachial V Arterial Anastomosis 161 AVG Proximal graft Anast 470 (Ratio 2.9) Arterial side FA Prox 151 Arterial side FA Mid 121 Mid Graft 139 Venous side FA Mid 166 Venous side FA Prox 114 Venous side FA stent 143 Venous Anastomosis 190 Brachial vein Distal UA 166 Mid-UA 161 Proximal UA 75 Axillary vein 61 Subclavian vein 66 VOLUME FLOW: Brachial 1543 cc/min 1562 cc/min PRELIMINARY FINDINGS: 1. Patent left brachial artery to brachial vein AV loop graft in the forearm. 2. >50% stenosis at proximalization Van Lear-Marty graft which connecting end to end to the arterial side. 3. Patent stent noted at the left proximal upper arm. 4.Volume of left brachial artery is 1562 cc/min. PHYSICIAN INTERPRETATION: Increased flow volume. >50% stenosis at proximalization Van Lear-Marty graft which connecting end to end to the arterial side. Patent stent noted at the left proximal upper arm. Signed 02/09/2018 12:13 AM Diomedes Calderon MD, RPVI Performing Organization Address [facility]/Zipcode Phone Number [facility] [address] [place] [address] Blood culture, aerobic & anaerobic (02/08/2018 2:00 AM)Only the most recent of3 resultswithin the time period is included. Blood culture isolate No growth after 5 days of incubation. [facility] DEPARTMENT OF Comment: PATHOLOGY AND GENOMIC Specimen Information MEDICINE Specimen Source: Blood Specimen Site: Antecubital Specimen Blood - Antecubital Performing Organization Address [facility]ode Phone Number [facility] DEPARTMENT PATHOLOGY AND [address] [place] [address] [facility] Ionized calcium (2018 1:36 PM) pH 7.46 [facility] DEPARTMENT OF PATHOLOGY AND GENOMIC MEDICINE Ionized calcium 0.90 (L) 1.11 - 1.32 mmol/L [facility] DEPARTMENT OF PATHOLOGY AND GENOMIC [facility] Specimen Plasma specimen Performing Organization Address [facility] Phone Number [facility] DEPARTMENT OF PATHOLOGY AND [address] [place] [address] [facility] Partial thromboplastin time, activated (2018 5:39 AM)Only the most recent of2 resultswithin the time period is included. PTT 39.6 (H) 23.0 - 36.0 sec [facility] DEPARTMENT OF PATHOLOGY Comment: AND [facility] PTT therapeutic range for unfractionated heparin is 61.0-112.0 seconds which corresponds to Anti-Xa 0.3-0.7 U/ml. Specimen Blood Performing Organization Address [facility]ode Phone Number [facility] DEPARTMENT OF PATHOLOGY AND [address] [place] [address] [facility] Prothrombin time with INR (2018 5:39 AM)Only the most recent of2 resultswithin the time period is included. Prothrombin time 18.1 (H) 12.0 - 15.0 sec [facility] DEPARTMENT OF PATHOLOGY AND GENOMIC MEDICINE INR 1.5 [facility] DEPARTMENT OF Comment: PATHOLOGY AND GENOMIC The International Normalized Ratio (INR) is a therapeutic MEDICINE monitoring tool for patients who are stable on oral anticoagulant therapy. An INR of 2.0-3.0 is suggested for deep vein thrombosis/pulmonary embolism. Specimen Blood Performing Organization Address City/[facility] Phone Number [facility] DEPARTMENT OF PATHOLOGY AND [address] [place] [address] Fibrinogen (2018 5:39 AM) Fibrinogen 377 200 - 450 mg/dL [facility] DEPARTMENT OF PATHOLOGY AND [facility] Specimen Blood Performing Organization Address [facility] Phone Number [facility] DEPARTMENT OF PATHOLOGY AND [address] [place] [address] Transfuse RBC (02/06/2018 6:37 PM)Only the most recent of2 resultswithin the time period is included.Hepatitis B surface antigen (02/06/2018 2:19 PM) Hepatitis B surface Ag Non-reactive Non-reactive [facility] DEPARTMENT OF PATHOLOGY AND [facility] Performing Organization Address [facility] Phone Number [facility] DEPARTMENT OF PATHOLOGY AND [address] [place] [address] XR Chest 1 Vw Portable (02/06/2018 12:07 PM)Only the most recent of2 resultswithin the time period is included. Narrative Performed At EXAMINATION:XR CHEST 1 VW PORTABLE RADIANT CLINICAL HISTORY:PICC Line Insertion COMPARISON:February 04, 2018 chest IMPRESSION: Interval placement left IJ dialysis catheter. Catheter tip projects over superior vena cava just below satnam No pneumothorax Cardiomegaly as before. No congestion infiltrate or effusion Single view chest [id number] Procedure Note Interface, Radiology Results Incoming - 02/06/2018 12:18 PM CDT EXAMINATION: XR CHEST 1 VW PORTABLE CLINICAL HISTORY: PICC Line Insertion COMPARISON: February 04, 2018 chest IMPRESSION: Interval placement left IJ dialysis catheter. Catheter tip projects over superior vena cava just below satnam No pneumothorax Cardiomegaly as before. No congestion infiltrate or effusion Single view chest [id number] Performing Organization Address [facility] Phone Number [facility] [address] [place] [address] HEMODIALYSIS CATHETER PLACEMENT (02/06/2018 11:36 AM) Narrative Performed At Ivette Cifuentes MD 02/06/2018 11:38 AM Hemodialysis catheter placement Date/Time: 02/06/2018 11:36 AM Performed by: IVETTE CIFUENTES Authorized by: BRANDON WELDON Consent: Consent obtained:Written Consent given by:Patient Risks discussed:Arterial puncture, bleeding, incorrect placement, pneumothorax and infection [place] protocol: Procedure explained and questions answered to patient or proxy's satisfaction: yes Relevant documents present and verified: yes Required blood products, implants, devices, and special equipment available: yes Patient identity confirmed:Verbally with patient Pre-procedure details: Indication:Vascular access for HD Hand hygiene: Hand hygiene performed prior to insertion Sterile barrier technique: All elements of maximal sterile technique followed Skin preparation:2% chlorhexidine Skin preparation agent: Skin preparation agent completely dried prior to procedure Anesthesia (see MAR for exact dosages): Anesthesia method:Local infiltration Local anesthetic:Lidocaine 1% w/o epi Procedure details: Procedure supplies:Trialysis Catheter size:13Fr Catheter Site Laterality:Left Post-procedure details: Post-procedure:Dressing applied and line sutured Patient tolerance of procedure:Tolerated well, no immediate complications Comments: Post-placement chest xray pending Vancomycin level, random (02/06/2018 6:50 AM) Vancomycin, random 16.4 ug/mL [facility] DEPARTMENT OF PATHOLOGY AND GENOMIC MEDICINE Specimen Serum Performing Organization Address City/[facility] Phone Number [facility] DEPARTMENT OF PATHOLOGY AND [address] [place] [address] [employer] MEDICINE Gastrointestinal panel (02/06/2018 4:15 AM) Gastrointestinal panel Negative for all pathogens tested: [facility] DEPARTMENT OF Negative for Salmonella PATHOLOGY AND GENOMIC Negative for Campylobacter MEDICINE Negative for Diarrheagenic E coli/Shigella Negative for Shiga-like toxin-producing E coli Negative for Plesiomonas shigelloides Negative for Yersinia enterocolitica Negative for Vibrio species Negative for Clostridium difficile (Toxin A/B) Negative for Cryptosporidium Negative for Giardia lamblia Negative for Cyclospora cayeteanensis Negative for Entamoeba histolytica Negative for Adenovirus F 40/41 Negative for Astrovirus Negative for Norovirus GI/GII Negative for Rotavirus A Negative for Sapovirus Negative for Clostridium difficile toxin Negative for E coli 0157 This real-time PCR assay detects the presence of nucleic acids (RNA or DNA) for the gastrointestinal pathogens listed. A result of "Not-detected" does not exclude the possibility of the presence of one or more pathogens at concentrations less than the detectable limits of the assay. Comment: Specimen Information Specimen Source: Stool Specimen Site: Nonpreserved Specimen Stool - Nonpreserved Performing Organization Address City/State/[facility]ode Phone Number [facility] DEPARTMENT OF PATHOLOGY AND [address] [place] [address] [employer] MEDICINE Hemodialysis (02/05/2018 9:19 AM) Narrative Performed At ARON Ward 02/05/2018 12:45 PM MD Tosha Garcia MD Juan Olivero Sr, MD Cindi Senior Jr, Myriam Tyson, Bijal Tristan, ADRIANE Ballesteros Hemodialysis Procedure Note Indication: ESRD Revaclear 300 x 4 hours UF as tolerated Na 140 K 3 HCO3 35 Ca 2.5 Qb 350 cc/min Anticoagulation: saline flushes only ADRIANE [facility] [phone] Prepare RBC, 1 Units (02/05/2018 9:00 AM) Product name Red Blood Cells -1, [facility] DEPARTMENT OF Leukored PATHOLOGY AND GENOMIC MEDICINE Unit number [id number] [facility] DEPARTMENT OF PATHOLOGY AND GENOMIC MEDICINE Product code [id number] [facility] DEPARTMENT OF PATHOLOGY AND GENOMIC MEDICINE Dispense status Transfused [facility] DEPARTMENT OF PATHOLOGY AND GENOMIC MEDICINE Blood expiration date [id number] [facility] DEPARTMENT OF PATHOLOGY AND GENOMIC MEDICINE Blood type code 7300 [facility] DEPARTMENT OF PATHOLOGY AND GENOMIC MEDICINE Blood type B POSITIVE [facility] DEPARTMENT OF PATHOLOGY AND GENOMIC MEDICINE Performing Organization Address [facility]ercode Phone Number [facility] DEPARTMENT OF PATHOLOGY AND [address] [place] [address] GENOMIC MEDICINE Type and screen (02/05/2018 9:00 AM) ABO grouping B [facility] DEPARTMENT OF PATHOLOGY AND GENOMIC MEDICINE Rh type POS [facility] DEPARTMENT OF PATHOLOGY AND GENOMIC MEDICINE Antibody screen (gel) NEG [facility] DEPARTMENT OF PATHOLOGY AND GENOMIC MEDICINE Specimen Blood Performing Organization Address City/[facility]/Zipcode Phone Number [facility] DEPARTMENT OF PATHOLOGY AND [address] [place] [address] [employer] MEDICINE US Hepatic (02/04/2018 9:20 PM) Narrative Performed At PROCEDURE:US HEPATIC RADIANT CLINICAL HISTORY:evaluate for liver pathology COMPARISON:None. TECHNIQUE: Multiple echo tomograms were performed in the sagittal and transverse orientations of the liver, gallbladder, and pancreas. Color-flow and pulse wave Doppler were also performed of the right, middle, and left hepatic veins and the portal vein. FINDINGS: The liver echotexture is homogeneous. Slight prominence of the periportal echoes are present.. The liver measures 18.3 cm in craniocaudal length. Ascites fluid is present around the liver. Slight prominence and dilatation of the hepatic veins is noted and could be due to right-sided cardiac failure.. Doppler interrogation of the portal vein demonstrates hepatopedal flow. The portal vein maximal transverse diameter measures 11 mm. No dilatation of the biliary tree is seen. The common bile duct measures 5 mm in maximal transverse diameter. The gallbladder is contracted. Patient ate one hour ago. IMPRESSION: Abnormal study. Ascites. Prominence of the hepatic veins which could represent right-sided failure. Hepatomegaly. [facility]-[id number] . Procedure Note Interface, Radiology Results Incoming - 02/04/2018 9:47 PM CDT PROCEDURE: US HEPATIC CLINICAL HISTORY: evaluate for liver pathology COMPARISON: None. TECHNIQUE: Multiple echo tomograms were performed in the sagittal and transverse orientations of the liver, gallbladder, and pancreas. Color-flow and pulse wave Doppler were also performed of the right, middle, and left hepatic veins and the portal vein. FINDINGS: The liver echotexture is homogeneous. Slight prominence of the periportal echoes are present.. The liver measures 18.3 cm in craniocaudal length. Ascites fluid is present around the liver. Slight prominence and dilatation of the hepatic veins is noted and could be due to right-sided cardiac failure.. Doppler interrogation of the portal vein demonstrates hepatopedal flow. The portal vein maximal transverse diameter measures 11 mm. No dilatation of the biliary tree is seen. The common bile duct measures 5 mm in maximal transverse diameter. The gallbladder is contracted. Patient ate one hour ago. IMPRESSION: Abnormal study. Ascites. Prominence of the hepatic veins which could represent right-sided failure. Hepatomegaly. [facility]-[id number] . Performing Organization Address City/State/Zipcode Phone Number [facility] [address] [facility] [place] [address] Echocardiogram complete w contrast and 3D if needed (02/04/2018 6:52 PM) Narrative Performed At [facility] Echocardiography Report [id number] [facility] [address], [place] [address] Pat.Name:OKSANAERICK SAUER Pat.ID:[id number] St.Date: 02/04/2018 Refer.MD:YARY AWAD MD Exam Time: 6:09:00 PMStudy Type:Routine Echo Height:68inWeight: 226lb BSA: 2.15 m2 DOBAge:1955,62Y Sex: MALEBP:115/57 HR:84 bpmSonogrphr: Fadumo Sotomayor RDCS Pat. Stat.:Inpatient Room:07 Study Status:Final Echo Event ID:[id number] Order ID:[id number] Reason for Study:Pre-op clearance; History of Congestive Heart Failure History / Clinical:Chronic Renal Failure, Congestive Heart Failure, Hyperlipidemia, Hypertension Procedures:2D Echo, Colorflow Doppler Race:B SUMMARY: LV EF is severely depressed. Estimated EF is 25-29%. Beat to beat variability/tachycardia noted. RV systolic function is severely depressed. Difficult to assess severity of mitral regurgitation. Suspect at least a moderate lesion. If clinically indicated, VAUGHN imaging may be helpful. LV filling pressure is elevated. Estimated PA systolic pressure is appx 72 mmHg, assuming a mean RAP of 20 mmHg. FINDINGS: LV: LV size is upper limits of normal. LV EF is severely depressed.Estimated EF is 25-29%. Beat to beat variability/tachycardianoted. Septal motion is paradoxical.Difficult to assess regional wall motion; howeverit appears grossly hypokinetic. RV: RV size is severely enlarged. RV systolic function is severelydepressed. LA: LA volume is mild to moderately enlarged. RA: RA volume is severely enlarged. AO: Aortic root diameter is normal. SANDY: No pericardial effusion. IAS:Interatrial septum is redundant. AV: Mild thickening of AV leaflets. Focal calcification of AV leaflets. MV: Mild thickening and calcification of mitral leaflets. Difficultto assess severity of mitral regurgitation. Suspectat least a moderate lesion. If clinically indicated,VAUGHN imaging may be helpful. PV: No structural PV abnormalities noted. Mild pulmonic regurgitation. TV: Dilated tricuspid annulus. Suspect severe tricuspid regurgitation Patel: LV relaxation is impaired. LV filling pressure is elevated. Other:Estimated PA systolic pressure is appx 72 mmHg, assuming a meanRAP of 20 mmHg. MEASUREMENTS: 2D Parasternal [place] Ao Rtd 3.4 cmIndex1.6 cm/m LVPWd0.9 cm LVOT 2 cmLA Ds5.5 cm LVIDd5.6 cmIndex2.6 cm/m Ao An2 cm LVIDs4.3 cm LV Lcib819.1 g(122-174) LV%fs 23.2 % LVM Index 82.8 g/m2 IVSd 0.8 cmRWT0.3 LV EF Biplane QLKSH454 ml (65-193) Index68.8 ml/m LV SV 41.8 ml UFLLW226.2 ltMwyza18.4 ml/m LV EF 28.2 %(63-77) Right Ventricle RVIDd6.3 cm (2.6-4.3) LA Sng Plane LA Area 27.5 cm2(8.8-23.4) LA Vol82.3 ml Index38.3 ml/m LA LngAx 7.6 cm RA Sng Plane RA Area 33.5 cm2(8.3-19.5) RA Vol 138.9 ml Index64.6 ml/m RA LngAx 6.8 cm DOPPLER LVOT Stroke Vol LVOT 2 cmLVOT CO5.8 l/min LVOT TVI17.2 cmLVOT CI2.7 l/m/m2 LVOT Tm219 msecHR 107 bpm LVOT SV 54 ml Signed 02/05/2018 09:47 AM Megan Miller MD Procedure Note Interface, Radiology Results In - 02/05/2018 9:48 AM CDT Echocardiography Report [id number] [facility] [address], [place] [address] Pat.Name: ERICK BENSON.ID: [id number] .Date: 02/04/2018 Refer.MD: YARY AWAD MD Exam Time: 6:09:00 PM Study Type:Routine Echo Height: 68in Weight: 226lb BSA: 2.15 m2 Age: 6 1955,62Y Sex: MALE BP: 115/57 HR: 84 bpm Sonogrphr: Fadumo Sotomayor RDCS Pat. Stat.:Inpatient Room: D807 Study Status:Final Echo Event ID:[id number] Order ID: [id number] Reason for Study:Pre-op clearance; History of Congestive Heart Failure History / Clinical:Chronic Renal Failure, Congestive Heart Failure, Hyperlipidemia, Hypertension Procedures:2D Echo, Colorflow Doppler Race: B SUMMARY: LV EF is severely depressed. Estimated EF is 25-29%. Beat to beat variability/tachycardia noted. RV systolic function is severely depressed. Difficult to assess severity of mitral regurgitation. Suspect at least a moderate lesion. If clinically indicated, VAUGHN imaging may be helpful. LV filling pressure is elevated. Estimated PA systolic pressure is appx 72 mmHg, assuming a mean RAP of 20 mmHg. FINDINGS: LV: LV size is upper limits of normal. LV EF is severely depressed. Estimated EF is 25-29%. Beat to beat variability/tachycardia noted. Septal motion is paradoxical. Difficult to assess regional wall motion; however it appears grossly hypokinetic. RV: RV size is severely enlarged. RV systolic function is severely depressed. LA: LA volume is mild to moderately enlarged. RA: RA volume is severely enlarged. AO: Aortic root diameter is normal. SANDY: No pericardial effusion. IAS: Interatrial septum is redundant. AV: Mild thickening of AV leaflets. Focal calcification of AV leaflets. MV: Mild thickening and calcification of mitral leaflets. Difficult to assess severity of mitral regurgitation. Suspect at least a moderate lesion. If clinically indicated, VAUGHN imaging may be helpful. PV: No structural PV abnormalities noted. Mild pulmonic regurgitation. TV: Dilated tricuspid annulus. Suspect severe tricuspid regurgitation Patel: LV relaxation is impaired. LV filling pressure is elevated. Other: Estimated PA systolic pressure is appx 72 mmHg, assuming a mean RAP of 20 mmHg. MEASUREMENTS: 2D Parasternal [place] Ao Rtd 3.4 cm Index 1.6 cm/m LVPWd 0.9 cm LVOT 2 cm LA Ds 5.5 cm LVIDd 5.6 cm Index 2.6 cm/m Ao An 2 cm LVIDs 4.3 cm LV Mass 178.1 g (122-174) LV%fs 23.2 % LVM Index 82.8 g/m2 IVSd 0.8 cm RWT 0.3 LV EF Biplane LVEDV 148 ml (65-193) Index 68.8 ml/m LV SV 41.8 ml LVESV 106.2 ml Index 49.4 ml/m LV EF 28.2 % (63-77) Right Ventricle RVIDd 6.3 cm (2.6-4.3) LA Sng Plane LA Area 27.5 cm2 (8.8-23.4) LA Vol 82.3 ml Index 38.3 ml/m LA LngAx 7.6 cm RA Sng Plane RA Area 33.5 cm2 (8.3-19.5) RA Vol 138.9 ml Index 64.6 ml/m RA LngAx 6.8 cm DOPPLER LVOT Stroke Vol LVOT 2 cm LVOT CO 5.8 l/min LVOT TVI 17.2 cm LVOT CI 2.7 l/m/m2 LVOT Tm 219 msec HR 107 bpm LVOT SV 54 ml Signed 02/05/2018 09:47 AM Megan Miller MD Performing Organization Address City/[facility] Centercode Phone Number [facility] [address] [place] [address] B natriuretic peptide (02/04/2018 2:45 PM) BNP >5000 (H) 0 - 100 pg/mL [facility] DEPARTMENT OF PATHOLOGY Comment: AND GENOMIC MEDICINE Increased result of BNP most likely represents recent infusion of recombinant BNP. For monitoring, because of the short half-life of BNP (20 minutes), measurements taken 2 hours after cessation of treatment again reflects the level of endogenous BNP. Specimen Blood Performing Organization Address [facility] Centercotx Phone Number [facility] DEPARTMENT OF PATHOLOGY AND [address] [place] [address] [facility] Hemoglobin A1c (02/04/2018 2:45 PM) Hemoglobin A1C 5.3 4.0 - 5.6 % [facility] DEPARTMENT OF PATHOLOGY Comment: AND GENOMIC MEDICINE HbA1c cutoffs for diagnosing diabetes: 4.0% - 5.6%=normal 5.7% - 6.4%=increased risk for diabetes (prediabetes) >=6.5%=diabetes Goals for glycemic control (ADA 2016) < 7.0%Target for non adults with diabetes. More or less stringent targets may be appropriate for individual patients. <7.5% Target for Children and adolescents with type 1 diabetes. Specimen Blood Performing Organization Address [facility] Centercotx Phone Number [facility] DEPARTMENT OF PATHOLOGY AND [address] [place] [address] GENOMIC [facility] Hepatic function panel (02/04/2018 2:45 PM) Albumin 3.1 (L) 3.5 - 5.0 g/dL [facility] DEPARTMENT OF PATHOLOGY AND GENOMIC MEDICINE Total bilirubin 2.1 (H) 0.0 - 1.2 mg/dL [facility] DEPARTMENT OF PATHOLOGY AND GENOMIC MEDICINE Bilirubin direct 1.5 (H) 0.0 - 0.3 mg/dL [facility] DEPARTMENT OF PATHOLOGY AND GENOMIC MEDICINE Alkaline phosphatase 68 40 - 129 U/L [facility] DEPARTMENT OF PATHOLOGY AND GENOMIC MEDICINE Protein 6.4 6.3 - 8.3 g/dL [facility] DEPARTMENT OF Comment: PATHOLOGY AND GENOMIC [place] 4.6-7.0 g/dL MEDICINE 1 week 4.4-7.6 g/dL 7 months-1year5.1-7.3 g/dL 1-2 years5.6-7.5 g/dL >3 years6.0-8.0 g/dL 18-150 6.3-8.3 g/dL ALT 10 5 - 50 U/L [facility] DEPARTMENT OF PATHOLOGY AND GENOMIC MEDICINE AST 20 10 - 50 U/L [facility] DEPARTMENT OF PATHOLOGY AND GENOMIC MEDICINE Specimen Plasma specimen Performing Organization Address City/State/Zipcode Phone Number [facility] DEPARTMENT OF PATHOLOGY AND [address] [place] [id number] GENOMIC MEDICINE after 02/18/2017 Insurance Payer Benefit Plan / Group Subscriber ID Type Phone Address MEDICARE MEDICARE PART A AND B xxxxxxxxxx Medicare [place], [place]
[2018-02-19] MEDS ORDERED: NA CHLORIDE 0.9% 500 ML ONE (08:03)
[2018-02-19] MEDS ORDERED: FUROSEMIDE 40 MG/4 ML VIAL ONE (11:58)
[2018-02-19 15:21] LABS: Hematocrit 23.2 % (39.6-49.0)
[2018-02-19 17:23] VITALS: O2SAT 99; BMI 34.4
[2018-02-19 17:29] VITALS: BP 132/66; TEMP 97.2
== END 2018-02-19 15:00 | disposition home or self-care (01) ==
LOC: DS 07:44
PROVIDERS: ATTEND Internal Medicine Nephrology
DX: N18.6 End stage renal disease (principal); D63.1 Anemia in chronic kidney disease; Z99.2 Dependence on renal dialysis
CPT/HCPCS: 36415; 36430; 85014 ×2; 85018 ×2; 86850; 86900; 86901; P9016 ×2

== ENCOUNTER 2018-04-21 10:27 | Emergency (ER) | payer OTHER ==
--- OUTSIDE RECORDS SUMMARY | 2018-04-21 10:30 | XMS REPORT | Clinical Summary ---
:1955 Author Organization [facility] Address [address] [place] [address] Care Team Providers Name Role Phone Asked, No Pcp Primary Care Provider Unavailable Allergies No Known Allergies Current Medications Prescription Sig. Disp. Refills Start Date End Date Status cinacalcet Take 30 mg by Active (SENSIPAR) 30 MG mouth daily. tablet esomeprazole Take 40 mg by Active (NexIUM) 40 MG mouth daily capsule before breakfast. sevelamer (RENVELA) Take 800 mg by Active 800 mg tablet mouth 3 (three) times a day with meals. cholecalciferol, Take 2,000 Active vitamin D3, Units by mouth (VITAMIN D3) 2,000 daily. unit capsule capsule apixaban (ELIQUIS) Take 5 mg by Active 5 mg tablet mouth 2 (two) times a day. metoprolol Take 25 mg by 02/12/2018 Discontinued succinate XL mouth daily. (TOPROL-XL) 25 mg 24 hr tablet lisinopril Take 1 tablet 30 tablet 0 02/13/2018 03/15/2018 (PRINIVIL,ZESTRIL) (5 mg total) 5 mg tablet by mouth daily for 30 days. metoprolol Take 1 tablet 30 tablet 0 02/13/2018 03/15/2018 succinate XL (50 mg total) (TOPROL-XL) 50 mg by mouth daily 24 hr tablet for 30 days. losartan (COZAAR) Take 25 mg by 03/11/2018 Discontinued 25 MG tablet mouth daily. traMADol (ULTRAM) Take 1 tablet 30 tablet 1 03/10/2018 03/24/2018 50 mg tablet (50 mg total) by mouth every 6 (six) hours as needed for moderate pain for up to 14 days. fexofenadine Take 1 tablet 30 tablet 0 03/11/2018 04/10/2018 (PRAVEEN) 60 MG (60 mg total) tablet by mouth daily for 30 days. guaiFENesin Take 1 tablet 60 tablet 0 03/10/2018 04/09/2018 (MUCINEX) 600 mg (600 mg total) tablet extended by mouth release 12hr nightly as needed (cough) for up to 30 days. levoFLOXacin Take 1 tablet 14 tablet 0 03/11/2018 03/25/2018 (LEVAQUIN) 250 MG (250 mg total) tablet by mouth daily for 14 days. Active Problems Problem Noted Date ESRD (end stage renal disease) on dialysis 03/08/2018 Sepsis 03/08/2018 MSSA (methicillin susceptible Staphylococcus aureus) 02/08/2018 Bacteremia 02/08/2018 Graft erosion 02/05/2018 Graft erosion, initial encounter 02/04/2018 ESRD (end stage renal disease) 02/04/2018 Chronic systolic heart failure 02/04/2018 PUD (peptic ulcer disease) 02/04/2018 CVA (cerebral vascular accident) 02/04/2018 Encounters Date Type Specialty Care Team Description 04/19/2018 Office Visit General Surgery Augusto Blanco Post-operative state Maurizio MD (Primary Dx) 04/09/2018 Hospital Encounter Procedural AttAda higginbotham, Suspected DVT ( deep Cardiology vein thrombosis) 04/09/2018 Transcribe Orders Procedural AttAda higginbotham, Suspected DVT ( deep Cardiology vein thrombosis) (Primary Dx) 04/05/2018 Office Visit General Surgery Augusto Blanco ESRD (end stage renal MD Maurizio disease) on dialysis (Primary Dx) 03/30/2018 Office Visit General Surgery Khloe Das ESRD (end stage renal RAMÓN Ashby disease) on dialysis (Primary Dx) 03/22/2018 Office Visit General Surgery Augusto Blanco ESRD (end stage renal MD Maurizio disease) (Primary Dx) 03/15/2018 Office Visit General Surgery Augusto Blanco End-stage renal MD Maurizio disease (Primary Dx) 03/09/2018 Anesthesia Event General Surgery Josemanuel Jolly MD 03/09/2018 Procedure Pass General Surgery 03/09/2018 Surgery General Surgery Augusto Blanco LEFT UPPER EXTREMITYMaurizio MD AV FISTULA LIGATION AND AV GRAFT EXCISION 03/09/2018 Procedure Pass General Surgery 03/08/2018 - Hospital Encounter General Surgery Augusto Blanco 03/11/2018 MD Beau Steven Huy B., MD 03/08/2018 Office Visit General Surgery Augusto Blanco ESRD (end stage renal disease) (Primary Dx); MD Maurizio History of clotted arteriovenous graft; Left arm swelling; Follow up 02/26/2018 Office Visit Internal Medicine Jhoana, Chronic systolic heart failure (Primary Dx); MD Fredi PUD (peptic ulcer disease); MSSA (methicillin susceptible Staphylococcus aureus); ESRD (end stage renal disease) 02/22/2018 Office Visit General Surgery Augutso Blanco ESRD on dialysis MD Maurizio (Primary Dx) 02/12/2018 Patient Outreach Quality Marleni Rutherford RN 02/08/2018 Telephone Psychiatry Jan Key, PhD 02/05/2018 Anesthesia Event General Surgery PoolKelli 02/05/2018 Procedure Pass General Surgery 02/05/2018 Surgery General Surgery Augusto Blanco LEFT UPPER EXTREMITY MD Maurizio AV GRAFT REVISION, and THROMBECTOMY 02/04/2018 - Hospital Encounter General Surgery Cledavidg, ESRD (end stage renal 02/12/2018 MD Yary disease) (Primary Dx) Ashley Borjas MD 02/04/2018 Procedure Pass General Surgery 02/04/2018 Intake Access N/A after 04/20/2017 Family History Medical History Relation Name Comments [...] Vital Sign Reading Time Taken Blood Pressure 136/91 03/11/2018 3:45 PM CDT Pulse 94 03/11/2018 3:45 PM CDT Temperature 36.7 C (98.1 F) 03/11/2018 3:45 PM CDT Respiratory Rate 17 03/11/2018 3:45 PM CDT Oxygen Saturation 100% 03/11/2018 12:02 PM CDT Inhaled Oxygen Concentration - - Weight 106 kg (233 lb) 03/15/2018 10:05 AM CDT Height 172.7 cm (5' 8") 03/15/2018 10:05 AM CDT Body Mass Index 35.43 03/15/2018 10:05 AM CDT Plan of Treatment Date Type Specialty Care Team Description 05/03/2018 Office Visit General Surgery Augusto Blanco MD [address] [address] Health Maintenance Due Date Last Done Comments COLON CANCER SCREENING 02/08/2004 SHINGRIX VACCINE (#1) 02/08/2004 ZOSTER VACCINE 2014 INFLUENZA VACCINE 03/10/2018 Implants Implanted Type Area Fire Hydrant Operator Device Expiration Model / Identifier Date Serial / Lot Set Cathztn Hmodial Lngtrm Accs 15fr 28cm Edge Simplicity - [id number] Surgical N/A: ARROW 10/07/2020 [id number] IM / Implanted: 02/12/2018 (Quantity not on file) Implants; N/A INTERNATIONAL / Expanders; INC [id number] Extenders; Surgical Wires Graft Vasclr [place] Stdwl 10cm 6mm - [id number] Vascular N/A: W L GORE 09/21/2022 [id number] / Implanted: 02/05/2018 (Quantity not on file) Graft N/A [id number] / [id number] Procedures Procedure Name Priority Date/Time Associated Comments Diagnosis US DUPLEX VENOUS Routine 04/09/2018 11:50 Suspected DVT (deep Results for this LOWER EXTREMITY AM CDT vein thrombosis) procedure are in BILATERAL the results section. HEMODIALYSIS Routine 03/11/2018 8:55 AM CDT MANUAL DIFFERENTIAL Routine 03/10/2018 4:50 Results for this AM CDT procedure are in the results section. CBC WITH PLATELET AND Routine 03/10/2018 4:50 Results for this DIFFERENTIAL AM CDT procedure are in the results section. ZZESTIMATED GFR Routine 03/10/2018 4:00 Results for this AM CDT procedure are in the results section. PHOSPHORUS LEVEL Routine 03/10/2018 4:00 Results for this AM CDT procedure are in the results section. MAGNESIUM LEVEL Routine 03/10/2018 4:00 Results for this AM CDT procedure are in the results section. BASIC METABOLIC PANEL Routine 03/10/2018 4:00 Results for this AM CDT procedure are in the results section. RESPIRATORY PATHOGEN Routine 03/09/2018 5:56 Results for this PANEL PM CDT procedure are in the results section. GRAM STAIN Timed 03/09/2018 2:58 Results for this PM CDT procedure are in the results section. AFB STAIN Timed 03/09/2018 2:58 Results for this PM CDT procedure are in the results section. ANAEROBIC CULTURE Timed 03/09/2018 2:58 Results for this PM CDT procedure are in the results section. AEROBIC CULTURE Timed 03/09/2018 2:58 Results for this PM CDT procedure are in the results section. FUNGUS SMEAR Timed 03/09/2018 2:58 Results for this PM CDT procedure are in the results section. AFB CULTURE Timed 03/09/2018 2:58 Results for this PM CDT procedure are in the results section. FUNGUS CULTURE Timed 03/09/2018 2:58 Results for this PM CDT procedure are in the results section. FL AN ELECTIVE Routine 03/09/2018 2:36 ENDOTRACHEAL AIRWAY PM CDT Procedure Note - Josemanuel Jolly MD - 03/09/2018 2:36 PM CDT Airway Performed by: JOSEMANUEL JOLLY Authorized by: JOSEMANUEL JOLLY Location: OR Urgency: Elective Difficult Airway: Yes (reminded of why we intubate patient for prior procedures; LMA not sufficient; went to glidescope) Preoxygenated with 100% O2: Yes C-spine Precautions Maintained Throughout: Yes Mask Ventilation: Easy mask Final Airway Type: Endotracheal airway Final Endotracheal Airway: ETT Technique Used: Video laryngoscopy Blade Type: Alejandre Laryngoscope Blade/Videolaryngoscope Blade Size: 2 ETT Size (mm): 8.0 Measured from: Lips ETT to Lips (cm): 24 Placement Verified by: CO2 detection, direct visualization and equal breath sounds Laryngoscopic view: Grade IIa - partial view of glottis Rapid Sequence Induction (RSI): No Modified RSI: No Number of Attempts at Approach: 2 CREATION, AV FISTULA, 03/09/2018 1:45 PM UPPER EXTREMITY, DISTAL CDT GLUCOSE LEVEL Routine 03/09/2018 11:16 AM Results for this CDT procedure are in the results section. POTASSIUM LEVEL Routine 03/09/2018 11:16 AM Results for this CDT procedure are in the results section. HEMODIALYSIS Routine 03/09/2018 9:52 AM CDT HEPATITIS B SURFACE Routine 03/09/2018 7:20 AM Results for this ANTIGEN CDT procedure are in the results section. PROTHROMBIN TIME WITH INR Routine 03/09/2018 4:15 AM Results for this CDT procedure are in the results section. HC COMPLETE BLD COUNT Routine 03/09/2018 4:15 AM Results for this W/AUTO DIFF CDT procedure are in the results section. TYPE AND SCREEN Routine 03/09/2018 4:00 AM Results for this CDT procedure are in the results section. PHOSPHORUS LEVEL Routine 03/09/2018 12:00 AM Results for this CDT procedure are in the results section. MAGNESIUM LEVEL Routine 03/09/2018 12:00 AM Results for this CDT procedure are in the results section. ZZESTIMATED GFR Routine 03/09/2018 12:00 AM Results for this CDT procedure are in the results section. BASIC METABOLIC PANEL Routine 03/09/2018 12:00 AM Results for this CDT procedure are in the results section. ECG 12-LEAD Routine 03/08/2018 7:24 PM Results for this CDT procedure are in the results section. BLOOD CULTURE, AEROBIC Routine 03/08/2018 6:15 PM Results for this CDT procedure are in the results section. ZZESTIMATED GFR Routine 03/08/2018 6:00 PM Results for this CDT procedure are in the results section. PHOSPHORUS LEVEL Routine 03/08/2018 6:00 PM Results for this CDT procedure are in the results section. MAGNESIUM LEVEL Routine 03/08/2018 6:00 PM Results for this CDT procedure are in the results section. BASIC METABOLIC PANEL Routine 03/08/2018 6:00 PM Results for this CDT procedure are in the results section. PARTIAL THROMBOPLASTIN Routine 03/08/2018 6:00 PM Results for this TIME (PTT) CDT procedure are in the results section. PROTHROMBIN TIME WITH INR Routine 03/08/2018 6:00 PM Results for this CDT procedure are in the results section. HC COMPLETE BLD COUNT Routine 03/08/2018 6:00 PM Results for this W/AUTO DIFF CDT procedure are in the results section. BLOOD CULTURE, AEROBIC & Routine 03/08/2018 6:00 PM Results for this ANAEROBIC CDT procedure are in the results section. IR TUNNELED DIALYSIS Routine 02/12/2018 1:26 PM Results for this CATHETER PLACEMENT CDT procedure are in the results section. HEMOGLOBIN & HEMATOCRIT STAT 02/12/2018 5:30 AM Results for this CDT procedure are in the results section. SMEAR REVIEW Routine 02/12/2018 4:00 AM Results for this CDT procedure are in the results section. ZZESTIMATED GFR Routine 02/12/2018 4:00 AM Results for this CDT procedure are in the results section. PHOSPHORUS LEVEL Routine 02/12/2018 4:00 AM Results for this CDT procedure are in the results section. MAGNESIUM LEVEL Routine 02/12/2018 4:00 AM Results for this CDT procedure are in the results section. BASIC METABOLIC PANEL Routine 02/12/2018 4:00 AM Results for this CDT procedure are in the results section. HC COMPLETE BLD COUNT Routine 02/12/2018 4:00 AM Results for this W/AUTO DIFF CDT procedure are in the results section. ECHOCARDIOGRAM Routine 02/11/2018 10:39 AM Results for this TRANSESOPHAGEAL W DOPPLER CDT procedure are in COLORFLOW the results section. HEMODIALYSIS Routine 02/11/2018 8:10 AM CDT ZZESTIMATED GFR Routine 02/11/2018 4:00 AM Results for this CDT procedure are in the results section. BILIRUBIN DIRECT Routine 02/11/2018 4:00 AM Results for this CDT procedure are in the results section. COMPREHENSIVE METABOLIC Routine 02/11/2018 4:00 AM Results for this PANEL CDT procedure are in the results section. HC COMPLETE BLD COUNT Routine 02/11/2018 4:00 AM Results for this W/AUTO DIFF CDT procedure are in the results section. HEMOGLOBIN & HEMATOCRIT STAT 02/10/2018 2:05 PM Results for this CDT procedure are in the results section. HC COMPLETE BLD COUNT Routine 02/10/2018 4:35 AM Results for this W/AUTO DIFF CDT procedure are in the results section. ZZESTIMATED GFR Routine 02/10/2018 4:00 AM Results for this CDT procedure are in the results section. COMPREHENSIVE METABOLIC Routine 02/10/2018 4:00 AM Results for this PANEL CDT procedure are in the results section. HEMODIALYSIS Routine 02/09/2018 1:35 PM CDT CBC WITH PLATELET AND Routine 02/09/2018 4:30 AM Results for this DIFFERENTIAL CDT procedure are in the results section. ZZESTIMATED GFR Routine 02/09/2018 4:00 AM Results for this CDT procedure are in the results section. COMPREHENSIVE METABOLIC Routine 02/09/2018 4:00 AM Results for this PANEL CDT procedure are in the results section. PHOSPHORUS LEVEL Routine 02/09/2018 4:00 AM Results for this CDT procedure are in the results section. MAGNESIUM LEVEL Routine 02/09/2018 4:00 AM Results for this CDT procedure are in the results section. ECG 12-LEAD Routine 02/08/2018 7:09 PM Results for this CDT procedure are in the results section. US DUPLEX HEMODIALYSIS AVG Routine 02/08/2018 6:05 PM Results for this AVF ACCESS CDT procedure are in the results section. ZZESTIMATED GFR Routine 02/08/2018 3:57 PM Results for this CDT procedure are in the results section. COMPREHENSIVE METABOLIC Routine 02/08/2018 3:57 PM Results for this PANEL CDT procedure are in the results section. ZZESTIMATED GFR Routine 02/08/2018 2:00 AM Results for this CDT procedure are in the results section. PHOSPHORUS LEVEL Routine 02/08/2018 2:00 AM Results for this CDT procedure are in the results section. MAGNESIUM LEVEL Routine 02/08/2018 2:00 AM Results for this CDT procedure are in the results section. BASIC METABOLIC PANEL Routine 02/08/2018 2:00 AM Results for this CDT procedure are in the results section. HC COMPLETE BLD COUNT Routine 02/08/2018 2:00 AM Results for this W/AUTO DIFF CDT procedure are in the results section. BLOOD CULTURE, AEROBIC & Routine 02/08/2018 2:00 AM Results for this ANAEROBIC CDT procedure are in the results section. BLOOD CULTURE, AEROBIC & Routine 02/08/2018 1:45 AM Results for this ANAEROBIC CDT procedure are in the results section. IONIZED CALCIUM Routine 2018 1:36 PM Results for this CDT procedure are in the results section. PARTIAL THROMBOPLASTIN Routine 2018 5:39 AM Results for this TIME (PTT) CDT procedure are in the results section. ZZESTIMATED GFR Routine 2018 5:39 AM Results for this CDT procedure are in the results section. PROTHROMBIN TIME WITH INR Routine 2018 5:39 AM Results for this CDT procedure are in the results section. FIBRINOGEN Routine 2018 5:39 AM Results for this CDT procedure are in the results section. PHOSPHORUS LEVEL Routine 2018 5:39 AM Results for this CDT procedure are in the results section. MAGNESIUM LEVEL Routine 2018 5:39 AM Results for this CDT procedure are in the results section. BASIC METABOLIC PANEL Routine 2018 5:39 AM Results for this CDT procedure are in the results section. HC COMPLETE BLD COUNT Routine 2018 5:39 AM Results for this W/AUTO DIFF CDT procedure are in the results section. TRANSFUSE RED BLOOD CELLS Routine 02/06/2018 6:37 PM CDT HEPATITIS B SURFACE Routine 02/06/2018 2:19 PM Results for this ANTIGEN CDT procedure are in the results section. SMEAR REVIEW STAT 02/06/2018 12:55 PM Results for this CDT procedure are in the results section. HC COMPLETE BLD COUNT STAT 02/06/2018 12:55 PM Results for this W/AUTO DIFF CDT procedure are in the results section. XR CHEST 1 VW PORTABLE STAT 02/06/2018 12:07 PM Results for this CDT procedure are in the results section. HEMODIALYSIS CATHETER Routine 02/06/2018 11:36 AM ESRD (end Results for this PLACEMENT CDT stage renal procedure are in disease) the results section. HEMODIALYSIS Routine 02/06/2018 11:21 AM CDT ZZESTIMATED GFR STAT 02/06/2018 6:50 AM Results for this CDT procedure are in the results section. PHOSPHORUS LEVEL STAT 02/06/2018 6:50 AM Results for this CDT procedure are in the results section. MAGNESIUM LEVEL STAT 02/06/2018 6:50 AM Results for this CDT procedure are in the results section. BASIC METABOLIC PANEL STAT 02/06/2018 6:50 AM Results for this CDT procedure are in the results section. VANCOMYCIN LEVEL, RANDOM Routine 02/06/2018 6:50 AM Results for this CDT procedure are in the results section. GASTROINTESTINAL PANEL Routine 02/06/2018 4:15 AM Results for this CDT procedure are in the results section. FL AN ELECTIVE Routine 02/05/2018 10:23 AM ENDOTRACHEAL AIRWAY CDT Procedure Note - Kelli Flanagan - 02/05/2018 10:23 AM CDT Airway Date/Time: 02/05/2018 10:07 AM Performed by: KELLI FLANAGAN Authorized by: JOSEMANUEL JOLLY Location: OR Urgency: Elective Difficult Airway: No Resident/BRIDGE DESIGN ENGINEER/AA: KELLI FLANAGAN Preoxygenated with 100% O2: Yes [...] AND SCREEN STAT 02/05/2018 9:00 AM CDT ZZESTIMATED GFR Routine 02/05/2018 12:37 AM CDT MAGNESIUM [...] SPECTRAL COLOR DOPPLER procedure are in the (52297) results section. XR CHEST 1 VW PORTABLE Routine 02/04/2018 4:27 PM CDT PHOSPHORUS LEVEL Routine 02/04/2018 2:45 PM CDT MAGNESIUM LEVEL Routine 02/04/2018 2:45 PM CDT HEPATIC FUNCTION PANEL Routine 02/04/2018 2:45 PM CDT ZZESTIMATED GFR Routine 02/04/2018 2:45 PM CDT HEMOGLOBIN [...] 12-LEAD Routine 02/04/2018 2:16 PM CDT after 04/20/2017 Results Pv duplex venous lower extremity (04/09/2018 11:50 AM) Narrative Performed At [facility] Vascular Ultrasound Laboratory Lower Extremity Venous Report [id number] [place] [address] Pat.Name:ERICK BENSON Pat.ID:[id number] .Date: 04/09/2018 Refer.MD:ADA LYA MD Exam Time: 11:24:00 AM Study Type:LE Venous Height:68inDOBAge: 1955,63Y Sex: MALESonogrphr: SANJEEV Ledesma Pat. Stat.:OutpatientTapeVol: FE, CPT - 4: [id number] Echo Event ID:[id number] Order ID:[id number] Reason for Study:Bilateral leg edema; HTN, CHF, Procedures:Colorflow, Grayscale/2D, Pulsed wave Doppler Race:B SUMMARY: DUPLEX SCAN OBSERVATIONS Deep VeinsSuperficial Veins RightLeft RightLeft EIV GSV (prox) NormalNormal CFV Normal Normal (above knee) Femoral Normal Normal GSV (dist) Normal Normal Profunda Normal Normal (below knee) Popliteal Normal Normal PT (prox) Normal NormalSSV Normal Normal PT (dist) Normal Normal Peroneal Normal Normal RIGHT:There is normal compressibility with no evidence of echogenic material noted within the lumen of the visualized veins.Colorflow and Doppler signals are normal. LEFT: There is normal compressibility with no evidence of echogenic material noted within the lumen of the visualized veins. Colorflow and Doppler signals are normal. PRELIMINARY FINDINGS 1.Normal venous duplex exam of the visualized veins. 2.Colorflow and Doppler signals are pulsatile in the common femoral, profunda femoral, femoral and popliteal veins, bilaterally. PHYSICIAN INTERPRETATION Venous examination of the both lower extremities demonstrated no evidence of venous thrombosis in the visualized veins.Normal compressibility and augmentation of all veins visualized. Fluid overload. Signed 04/09/2018 01:23 PM Diomedes Calderon MD, RPVI Procedure Note Interface, Radiology Results In - 04/09/2018 1:23 PM CDT Vascular Ultrasound Laboratory Lower Extremity Venous Report [id number] [place] [address] Pat.Name: ERICK BENSON Pat.ID: [id number] St.Date: 04/09/2018 Refer.MD: ADA LAY MD Exam Time: 11:24:00 AM Study Type:LE Venous Height: 68in Age: 7 1955,63Y Sex: MALE Sonogrphr: SANJEEV Ledesma Pat. Stat.:Outpatient Tape Vol: , [facility] - 4: 19593 Echo Event ID:[id number] Order ID: [id number] Reason for Study:Bilateral leg edema; HTN, CHF, Procedures:Colorflow, Grayscale/2D, Pulsed wave Doppler Race: B SUMMARY: DUPLEX SCAN OBSERVATIONS Deep Veins Superficial Veins Right Left Right Left EIV GSV (prox) Normal Normal CFV Normal Normal (above knee) Femoral Normal Normal GSV (dist) Normal Normal Profunda Normal Normal (below knee) Popliteal Normal Normal PT (prox) Normal Normal SSV Normal Normal PT (dist) Normal Normal Peroneal Normal Normal RIGHT: There is normal compressibility with no evidence of echogenic material noted within the lumen of the visualized veins. Colorflow and Doppler signals are normal. LEFT: There is normal compressibility with no evidence of echogenic material noted within the lumen of the visualized veins. Colorflow and Doppler signals are normal. PRELIMINARY FINDINGS 1. Normal venous duplex exam of the visualized veins. 2. Colorflow and Doppler signals are pulsatile in the common femoral, profunda femoral, femoral and popliteal veins, bilaterally. PHYSICIAN INTERPRETATION Venous examination of the both lower extremities demonstrated no evidence of venous thrombosis in the visualized veins. Normal compressibility and augmentation of all veins visualized. Fluid overload. Signed 04/09/2018 01:23 PM Diomedes Calderon MD, RPVI Performing Organization Address City/State/Zipcode Phone Number [facility] [phone] [place] [address] Manual differential (03/10/2018 4:50 AM) Manual differential PERFORMED [facility] DEPARTMENT OF PATHOLOGY AND GENOMIC MEDICINE Neutrophils 80.0 (H) 39.0 - 69.0 % [facility] DEPARTMENT OF PATHOLOGY AND GENOMIC MEDICINE Lymphocytes 7.0 (L) 25.0 - 45.0 % [facility] DEPARTMENT OF PATHOLOGY AND GENOMIC MEDICINE Monocytes 13.0 (H) 0.0 - 10.0 % [facility] DEPARTMENT OF PATHOLOGY AND GENOMIC MEDICINE Eosinophils 0.0 0.0 - 5.0 % [facility] DEPARTMENT OF PATHOLOGY AND GENOMIC MEDICINE Basophils 0.0 0.0 - 1.0 % [facility] DEPARTMENT OF PATHOLOGY AND GENOMIC MEDICINE Metamyelocytes 0 % [facility] DEPARTMENT OF PATHOLOGY AND GENOMIC MEDICINE Promyelocytes 0 % [facility] DEPARTMENT OF PATHOLOGY AND GENOMIC MEDICINE Platelet slide review Erika adequate [facility] DEPARTMENT OF PATHOLOGY AND GENOMIC MEDICINE Anisocytosis Moderate [facility] DEPARTMENT OF PATHOLOGY AND GENOMIC MEDICINE Polychromasia Moderate [facility] DEPARTMENT OF PATHOLOGY AND GENOMIC MEDICINE Target cells Moderate (A) [facility] DEPARTMENT OF PATHOLOGY AND GENOMIC MEDICINE Ovalocytes Moderate [facility] DEPARTMENT OF PATHOLOGY AND GENOMIC MEDICINE Enlarged platelets Moderate (A) [facility] DEPARTMENT OF PATHOLOGY AND GENOMIC MEDICINE Performing Organization Address City/State/Zipcode Phone Number [facility] DEPARTMENT OF PATHOLOGY AND [address] [place] [phone] [facility]OMIC [facility] CBC with platelet and differential (03/10/2018 4:50 AM)Only the most recent of12 resultswithin the time period is included. WBC 7.21 4.50 - 11.00 k/uL [facility] DEPARTMENT OF PATHOLOGY AND GENOMIC MEDICINE RBC 2.90 (L) 4.40 - 6.00 m/uL [facility] DEPARTMENT OF PATHOLOGY AND GENOMIC MEDICINE HGB 8.2 (L) 14.0 - 18.0 g/dL [facility] DEPARTMENT OF PATHOLOGY AND GENOMIC MEDICINE HCT 27.4 (L) 41.0 - 51.0 % [facility] DEPARTMENT OF PATHOLOGY AND GENOMIC MEDICINE MCV 94.5 82.0 - 100.0 fL [facility] DEPARTMENT OF PATHOLOGY AND GENOMIC MEDICINE MCH 28.3 27.0 - 34.0 pg [facility] DEPARTMENT OF PATHOLOGY AND GENOMIC MEDICINE MCHC 29.9 (L) 31.0 - 37.0 g/dL [facility] DEPARTMENT OF PATHOLOGY AND GENOMIC MEDICINE RDW - SD 67.0 (H) 37.0 - 55.0 fL [facility] DEPARTMENT OF PATHOLOGY AND GENOMIC MEDICINE MPV 10.5 8.8 - 13.2 fL [facility] DEPARTMENT OF PATHOLOGY AND GENOMIC MEDICINE Platelet count 178 150 - 400 k/uL [facility] DEPARTMENT OF PATHOLOGY AND GENOMIC MEDICINE Nucleated RBC 0.00 /100 WBC [facility] DEPARTMENT OF PATHOLOGY AND GENOMIC MEDICINE Neutrophils 80.0 (H) 39.0 - 69.0 % [facility] DEPARTMENT OF PATHOLOGY AND GENOMIC MEDICINE Lymphocytes 7.0 (L) 25.0 - 45.0 % [facility] DEPARTMENT OF PATHOLOGY AND GENOMIC MEDICINE Monocytes 13.0 (H) 0.0 - 10.0 % [facility] DEPARTMENT OF PATHOLOGY AND GENOMIC MEDICINE Eosinophils 0.0 0.0 - 5.0 % [facility] DEPARTMENT OF PATHOLOGY AND GENOMIC MEDICINE Basophils 0.0 0.0 - 1.0 % [facility] DEPARTMENT OF PATHOLOGY AND GENOMIC MEDICINE Specimen Blood Performing Organization Address [facility] Phone Number [facility] DEPARTMENT OF PATHOLOGY AND [address] [place] [address] Estimated GFR (03/10/2018 4:00 AM)Only the most recent of13 resultswithin the time period is included. GFR Non Af Amer 9 (A) mL/min/1.73 m2 [facility] DEPARTMENT OF PATHOLOGY AND GENOMIC MEDICINE GFR Af Amer 11 (A) mL/min/1.73 m2 [facility] DEPARTMENT OF Comment: PATHOLOGY AND GENOMIC Chronic [...] Americans. Specimen Plasma specimen Performing Organization Address [facility] Phone Number [facility] OF PATHOLOGY AND [address] [place] [address] Phosphorus level (03/10/2018 4:00 AM)Only the most recent of10 resultswithin the time period is included. Phosphorus 3.3 2.4 - 4.5 mg/dL [facility] DEPARTMENT OF PATHOLOGY AND GENOMIC MEDICINE Specimen Plasma specimen Performing Organization Address City/[facility] Phone Number [facility] DEPARTMENT OF PATHOLOGY AND [address] [place] [address] Magnesium level (03/10/2018 4:00 AM)Only the most recent of10 resultswithin the time period is included. Magnesium 2.1 1.6 - 2.4 mg/dL [facility] DEPARTMENT OF PATHOLOGY AND GENOMIC MEDICINE Specimen Plasma specimen Performing Organization Address City/[facility] Phone Number [facility] DEPARTMENT OF PATHOLOGY AND [address] [place] [address] [place] [facility] Basic metabolic panel (03/10/2018 4:00 AM)Only the most recent of9 resultswithin the time period is included. Sodium 138 135 - 148 mEq/L [facility] DEPARTMENT OF PATHOLOGY AND GENOMIC MEDICINE Potassium 4.5 3.5 - 5.0 mEq/L [facility] DEPARTMENT OF PATHOLOGY AND GENOMIC MEDICINE Chloride 98 98 - 112 mEq/L [facility] DEPARTMENT OF PATHOLOGY AND GENOMIC MEDICINE CO2 26 24 - 31 mEq/L [facility] DEPARTMENT OF PATHOLOGY AND GENOMIC MEDICINE Anion gap 14@ANIO 7 - 15 mEq/L [facility] DEPARTMENT OF PATHOLOGY AND GENOMIC MEDICINE BUN 30 (H) 8 - 23 mg/dL [facility] DEPARTMENT OF PATHOLOGY AND GENOMIC MEDICINE Creatinine 6.2 (H) 0.7 - 1.2 mg/dL [facility] DEPARTMENT OF PATHOLOGY AND GENOMIC MEDICINE Glucose 142 (H) 65 - 99 mg/dL [facility] DEPARTMENT OF PATHOLOGY AND GENOMIC MEDICINE Calcium 8.5 (L) 8.8 - 10.2 mg/dL [facility] DEPARTMENT OF PATHOLOGY AND GENOMIC MEDICINE Specimen Plasma specimen Performing Organization Address City/[facility] Phone Number [facility] DEPARTMENT OF PATHOLOGY AND [address] [place] [phone] Delta ID Respiratory pathogen panel (03/09/2018 5:56 PM) Respiratory pathogen Negative for all pathogens tested: [facility] DEPARTMENT OF panel Negative for Adenovirus PATHOLOGY AND GENOMIC Negative for Coronavirus HKU1 MEDICINE Negative for Coronavirus NL63 Negative for Coronavirus 229E Negative for Coronavirus OC43 Negative for Human Metapneumovirus Negative for Rhinovirus/Enterovirus Negative for Influenza A Negative for Influenza A/H1 Negative for Influenza A/H3 Negative for Influenza A/H1-2009 Negative for Influenza B Negative for Parainfluenza Virus 1 Negative for Parainfluenza Virus 2 Negative for Parainfluenza Virus 3 Negative for Parainfluenza Virus 4 Negative for Respiratory Syncytial Virus Negative for Bordetella pertussis Negative for Chlamydophila pneumoniae Negative for Mycoplasma pneumoniae This real-time PCR assay detects the presence of nucleic acids (RNA or DNA) for the respiratory pathogens listed. A result of "Not-detected" does not exclude the possibility of the presence of one or more pathogens at concentrations less than the detectable limits of the assay. Comment: Specimen Information Specimen Source: Nasopharyngeal Specimen Site: Left Specimen Nasopharyngeal - Left Performing Organization Address [facility] Phone Number [facility] DEPARTMENT OF PATHOLOGY AND [address] [place] [phone] Delta ID Fungus smear (03/09/2018 2:58 PM) Fungus smear No fungi observed. [facility] DEPARTMENT OF PATHOLOGY AND GENOMIC Comment: MEDICINE Specimen Information Specimen Source: Graft Specimen Site: Implant Specimen Graft - Implant Performing Organization Address City/[facility]/Zipcode Phone Number [facility] DEPARTMENT OF PATHOLOGY AND [address] [place] [phone] GENOMIC MEDICINE AFB culture (03/09/2018 2:58 PM) AFB culture isolate No growth after 6 weeks of incubation. [facility] DEPARTMENT OF PATHOLOGY Comment: AND GENOMIC MEDICINE Specimen Information Specimen Source: Graft Specimen Site: Implant Specimen Graft - Implant Performing Organization Address City/[facility] Phone Number [facility] DEPARTMENT OF PATHOLOGY AND [address] [place] [phone] [facility] MEDICINE Aerobic culture (03/09/2018 2:58 PM) Aerobic culture isolate Citrobacter koseri [facility] DEPARTMENT OF Few PATHOLOGY AND GENOMIC susceptibility to follow MEDICINE (A) Comment: Specimen Information Specimen Source: Graft Specimen Site: Implant Aerobic culture isolate Serratia marcescens [facility] DEPARTMENT OF Rare PATHOLOGY AND GENOMIC susceptibility to follow MEDICINE (A) Aerobic culture isolate Enterococcus faecium [facility] DEPARTMENT OF Recovered in Broth only: PATHOLOGY AND GENOMIC susceptibility to follow MEDICINE This organism is Vancomycin Resistant. Enterococcus susceptible to high levels of Gentamicin. Susceptibility results indicate synergy with Penicillins and Vancomycin. (A) Specimen Graft - Implant Organism Antibiotic Method Susceptibility Citrobacter koseri Ampicillin STEPHANY >16 mcg/mL: Resistant Citrobacter koseri Amoxicillin/Clavulanate STEPHANY <=2/1 mcg/mL: Susceptible Citrobacter koseri Amikacin STEPHANY <=4 mcg/mL: Susceptible Citrobacter koseri Aztreonam STEPHANY <=1 mcg/mL: Susceptible Citrobacter koseri Ceftazidime STEPHANY <=0.5 mcg/mL: Susceptible Citrobacter koseri Ciprofloxacin STEPHANY <=0.5 mcg/mL: Susceptible Citrobacter koseri Ceftriaxone STEPHANY <=0.5 mcg/mL: Susceptible Citrobacter koseri Cefuroxime Sodium STEPHANY 8 mcg/mL: Susceptible Citrobacter koseri Cefazolin STEPHANY 2 mcg/mL: Susceptible Citrobacter koseri Cefepime STEPHANY <=0.5 mcg/mL: Susceptible Citrobacter koseri Cefoxitin STEPHANY <=4 mcg/mL: Susceptible Citrobacter koseri Gentamicin STEPHANY 1 mcg/mL: Susceptible Citrobacter koseri Imipenem STEPHANY <=0.25 mcg/mL: Susceptible Citrobacter koseri Levofloxacin STEPHANY <=1 mcg/mL: Susceptible Citrobacter koseri Meropenem STEPHANY <=0.125 mcg/mL: Susceptible Citrobacter koseri Tobramycin STEPHANY 1 mcg/mL: Susceptible Citrobacter koseri Ampicillin/Sulbactam STEPHANY 4/2 mcg/mL: Susceptible Citrobacter koseri Trimethoprim/Sulfamethoxazol STEPHANY <=0.5/9.5 mcg/mL: Susceptible e Citrobacter koseri Tetracycline STEPHANY <=1 mcg/mL: Susceptible Citrobacter koseri Piperacillin/Tazobactam STEPHANY <=2/4 mcg/mL: Susceptible Citrobacter koseri Ertapenem STEPHANY <=0.125 mcg/mL: Susceptible Citrobacter koseri Tigecycline STEPHANY <=0.5 mcg/mL: Susceptible Serratia marcescens Ampicillin STEPHANY >16 mcg/mL: Resistant Serratia marcescens Amoxicillin/Clavulanate STEPHANY >16/8 mcg/mL: Resistant Serratia marcescens Amikacin STEPHANY <=4 mcg/mL: Susceptible Serratia marcescens Aztreonam STEPHANY <=1 mcg/mL: Susceptible Serratia marcescens Ceftazidime STEPHANY <=0.5 mcg/mL: Susceptible Serratia marcescens Ciprofloxacin STEPHANY <=0.5 mcg/mL: Susceptible Serratia marcescens Ceftriaxone STEPHANY <=0.5 mcg/mL: Susceptible Serratia marcescens Cefuroxime Sodium STEPHANY >16 mcg/mL: Resistant Serratia marcescens Cefazolin STEPHANY >32 mcg/mL: Resistant Serratia marcescens Cefepime STEPHANY <=0.5 mcg/mL: Susceptible Serratia marcescens Cefoxitin STEPHANY >16 mcg/mL: Resistant Serratia marcescens Gentamicin STEPHANY 2 mcg/mL: Susceptible Serratia marcescens Imipenem STEPHANY 1 mcg/mL: Susceptible Serratia marcescens Levofloxacin STEPHANY <=1 mcg/mL: Susceptible Serratia marcescens Meropenem STEPHANY <=0.125 mcg/mL: Susceptible Serratia marcescens Tobramycin STEPHANY 2 mcg/mL: Susceptible Serratia marcescens Ampicillin/Sulbactam STEPHANY >16/8 mcg/mL: Resistant Serratia marcescens Tetracycline STEPHANY >8 mcg/mL: Resistant Serratia marcescens Piperacillin/Tazobactam STEPHANY <=4/4 mcg/mL: Susceptible Serratia marcescens Ertapenem STEPHANY <=0.125 mcg/mL: Susceptible Serratia marcescens Tigecycline STEPHANY 2 mcg/mL: Susceptible Enterococcus faecium Ampicillin KB mm: Resistant Enterococcus faecium Gentamicin-Syn KB mm: Susceptible Enterococcus faecium Erythromycin KB mm: Resistant Enterococcus faecium Linezolid KB mm: Susceptible Enterococcus faecium Vancomycin KB mm: Resistant Enterococcus faecium Minocycline KB mm: Susceptible Performing Organization Address [facility] Phone Number [facility] DEPARTMENT OF PATHOLOGY AND [address] [place] [phone] GENOMIC MEDICINE Gram stain (03/09/2018 2:58 PM) Gram stain isolate Few WBC's [facility] DEPARTMENT OF PATHOLOGY AND No organisms seen GENOMIC MEDICINE Comment: Specimen Information Specimen Source: Graft Specimen Site: Implant Specimen Graft - Implant Performing Organization Address [facility] Phone Number [facility] DEPARTMENT OF PATHOLOGY AND [address] [place] [address] GENOMIC MEDICINE AFB stain (03/09/2018 2:58 PM) AFB stain No acid fast bacilli (AFB) seen. [facility] DEPARTMENT OF PATHOLOGY AND Comment: GENOMIC MEDICINE Specimen Information Specimen Source: Graft Specimen Site: Implant Specimen Graft - Implant Performing Organization Address [facility] Phone Number [facility] DEPARTMENT OF PATHOLOGY AND [address] [place] [phone] GENOMIC MEDICINE Fungus culture (03/09/2018 2:58 PM) Fungus culture isolate No growth after 4 weeks of incubation. [facility] DEPARTMENT OF Comment: PATHOLOGY AND GENOMIC Specimen Information MEDICINE Specimen Source: Graft Specimen Site: Implant Specimen Graft - Implant Performing Organization Address [facility] Phone Number [facility] DEPARTMENT OF PATHOLOGY AND [address] [place], [place] [phone] GENOMIC [facility] Anaerobic culture (03/09/2018 2:58 PM) Anaerobic culture No anaerobic organisms isolated. [facility] DEPARTMENT OF isolate Comment: PATHOLOGY AND GENOMIC Specimen Information MEDICINE Specimen Source: Graft Specimen Site: Implant Specimen Graft - Implant Performing Organization Address [facility] Phone Number [facility] DEPARTMENT OF PATHOLOGY AND [address] [place] [phone] GENOMIC MEDICINE Potassium level (03/09/2018 11:16 AM) Potassium 3.6 3.5 - 5.0 mEq/L [facility] DEPARTMENT OF PATHOLOGY AND GENOMIC MEDICINE Specimen Plasma specimen Performing Organization Address [facility]/Zipcode Phone Number [facility] DEPARTMENT OF PATHOLOGY AND [address] [place] [address] GENOMIC [facility] Glucose level (03/09/2018 11:16 AM) Glucose 87 65 - 99 mg/dL [facility] DEPARTMENT OF PATHOLOGY AND GENOMIC MEDICINE Specimen Plasma specimen Performing Organization Address [facility] Phone Number [facility] DEPARTMENT OF PATHOLOGY AND [address] [place] [address] Hepatitis B surface antigen (03/09/2018 7:20 AM)Only the most recent of2 resultswithin the time period is included. Hepatitis B surface Ag Non-reactive Non-reactive [facility] DEPARTMENT OF PATHOLOGY AND GENOMIC MEDICINE Specimen Blood Performing Organization Address [facility] Phone Number [facility] DEPARTMENT OF PATHOLOGY AND [address] [place] [address] Prothrombin time with INR (03/09/2018 4:15 AM)Only the most recent of4 resultswithin the time period is included. Prothrombin time 19.2 (H) 12.0 - 15.0 sec [facility] DEPARTMENT OF PATHOLOGY AND GENOMIC MEDICINE INR 1.6 [facility] DEPARTMENT OF Comment: PATHOLOGY AND GENOMIC The International Normalized Ratio (INR) is a therapeutic MEDICINE monitoring tool for patients who are stable on oral anticoagulant therapy. An INR of 2.0-3.0 is suggested for deep vein thrombosis/pulmonary embolism. Specimen Blood Performing Organization Address [facility] Phone Number [facility] DEPARTMENT OF PATHOLOGY AND [address] [place] [address] GENOMIC MEDICINE Type and screen (03/09/2018 4:00 AM)Only the most recent of2 resultswithin the time period is included. ABO grouping B [facility] DEPARTMENT OF PATHOLOGY AND GENOMIC MEDICINE Rh type POS [facility] DEPARTMENT OF PATHOLOGY AND GENOMIC MEDICINE Antibody screen (gel) NEG [facility] DEPARTMENT OF PATHOLOGY AND GENOMIC MEDICINE Specimen Blood Performing Organization Address [facility]/Zipcode Phone Number [facility] DEPARTMENT OF PATHOLOGY AND [address] [place] [address] MEDICINE ECG 12 lead (03/08/2018 7:24 PM)Only the most recent of3 resultswithin the time period is included. Ventricular rate 93 [facility]USE Atrial rate 227 [facility] QRSD interval 120 [facility] QT interval 432 [facility] QTC interval 537 [facility] MUSE QRS axis 1 266 [facility] MUSE T wave axis 49 [facility] MUSE EKG impression Atrial fibrillation with a competing junctional pacemaker- Pulmonary disease pattern-Right bundle branch block-Abnormal ECG-In automated comparison with ECG of 08-FEB-2018 19:09,-Atrial fibrillation has replaced Sinus rhythm- Performing Organization Address City/[facility] Phone Number [facility] MUSE [address] [place] [phone] Blood culture, aerobic (03/08/2018 6:15 PM) Blood culture isolate, No growth after 5 days of incubation. [facility] DEPARTMENT OF aerobic Comment: PATHOLOGY AND GENOMIC Specimen Information MEDICINE Specimen Source: Blood Specimen Site: Right Arm Specimen Blood Performing Organization Address [facility] Phone Number [facility] DEPARTMENT OF PATHOLOGY AND [address] [place] [phone] [facility] Blood culture, aerobic & anaerobic (03/08/2018 6:00 PM)Only the most recent of4 resultswithin the time period is included. Blood culture isolate No growth after 5 days of incubation. [facility] DEPARTMENT OF Comment: PATHOLOGY AND GENOMIC Specimen Information MEDICINE Specimen Source: Blood Specimen Site: Right Arm Specimen Blood Performing Organization Address [facility] Phone Number [facility] DEPARTMENT OF PATHOLOGY AND [address] [place] [phone] [facility] Partial thromboplastin time, activated (03/08/2018 6:00 PM)Only the most recent of3 resultswithin the time period is included. PTT 36.5 (H) 23.0 - 36.0 sec [facility] DEPARTMENT OF PATHOLOGY Comment: AND [facility] PTT therapeutic range for unfractionated heparin is 61.0-112.0 seconds which corresponds to Anti-Xa 0.3-0.7 U/ml. Specimen Blood Performing Organization Address City/[facility] Phone Number [facility] DEPARTMENT OF PATHOLOGY AND [address] [place] [phone] [facility] MEDICINE IR Tunneled Dialysis Catheter Placement (02/12/2018 1:26 PM) Narrative Performed At Procedure: Placement of tunneled dialysis catheter RADIANT Clinical History: End-stage renal disease Sedation: Versed and fentanyl were utilized for monitored conscious sedation during the procedure. The patient was transferred to the recovery room at the end of the procedure for further monitoring. Sybs-gh-wzlv time 19 minutes Anesthesia: Local Radiation dose: [...] was brought through the tunnel. A 5 Grenadian catheter was placed over the initially placed [...] above. Blood Loss: Less than 5 mL [facility]-[id number] Procedure Note [facility], Radiology Results Incoming - 02/12/2018 4:10 PM CDT Procedure: Placement of tunneled dialysis catheter Clinical History: End-stage renal disease Sedation: Versed and fentanyl were utilized for monitored conscious sedation during the procedure. The patient was transferred to the recovery room at the end of the procedure for further monitoring. Eanh-mi-xskk time 19 minutes Anesthesia: Local Radiation dose: [...] was brought through the tunnel. A 5 Grenadian catheter was placed over the initially placed [...] above. Blood Loss: Less than 5 mL [facility]-[id number] Performing Organization Address [facility]/Zipcode Phone Number [facility] [address] [place] [address] Hemoglobin & hematocrit (02/12/2018 5:30 AM)Only the most recent of2 resultswithin the time period is included. HGB 7.3 (L) 14.0 - 18.0 g/dL [facility] DEPARTMENT OF PATHOLOGY AND GENOMIC MEDICINE HCT 20.5 (L) 41.0 - 51.0 % [facility] DEPARTMENT OF PATHOLOGY AND GENOMIC MEDICINE Specimen Blood Performing Organization Address [facility] Phone Number [facility] DEPARTMENT OF PATHOLOGY AND [address] [place] [address] GENOMIC MEDICINE Smear review (02/12/2018 4:00 AM)Only the most recent of2 resultswithin the time period is included. Platelet slide review Erika slt decr [facility] DEPARTMENT OF PATHOLOGY AND GENOMIC MEDICINE Anisocytosis Moderate [facility] DEPARTMENT OF PATHOLOGY AND GENOMIC MEDICINE Polychromasia Moderate [facility] DEPARTMENT OF PATHOLOGY AND GENOMIC MEDICINE Target cells Moderate (A) [facility] DEPARTMENT OF PATHOLOGY AND GENOMIC MEDICINE Performing Organization Address [facility] Phone Number [facility] DEPARTMENT OF PATHOLOGY AND [address] [place] [address] GENOMIC MEDICINE Echocardiogram transesophageal (02/11/2018 10:39 AM) Narrative Performed At [facility] Transesophageal Echo Report [id number], [place], [place] [address] Pat.Name:ERICK BENSON Pat.ID:[id number] St.Date: 02/11/2018Refer.:YARY ROMERO MD Exam Time: 9:19:00 AMStudy Type:VAUGHN Height:68inWeight: 226lb BSA: 2.15 m2 DOBAge:1955,63Y Sex: MALEBP:137/65 HR:68 bpmSonogrphr: David Malave MD Pat. Stat.:Inpatient Study Status:Final Echo Event ID:[id number] Order ID:[id number] Reason for Study:R/O ENDOCARDITIS History / Clinical:Chronic Renal Failure, Congestive Heart Failure, Hyperlipidemia, Hypertension Procedures:Transesophageal Echo with Colorflow Doppler Race:B FINDINGS: VAUGHN:The attending hematologist performed the VAUGHN procedure and waspresent for [...] SedationASA Class: 4 Physician: Cuco Kiran MD Microarray Specialist: David Malave MD Pre TEEBP HR Post VAUGHN BP HR 137/65 [id number]/56 69 Meds:Viscous xylocaine, Cetacaine spray to oropharynx, Versed 2 mg IV, Fentanyl 25 mcg IV Complications: None Condition: Stable MEASUREMENTS: DOPPLER LVOT Stroke Vol LVOT 2.2 cmLVOT CO4.1 l/min LVOT TVI15.5 cmLVOT CI1.9 l/m/m2 LVOT Tm318 boamBP64 bpm LVOT SV 58.8 ml MV PISA MV AliasVel 26.5 cm/sMV pkVel 512.6 cm/s MV PISA rad0.7 cmMV ERO 0.1 cm2 MV Flw74.3 cc/sMV RgVol26.3 cc Signed 02/11/2018 10:35 AM Cuco Kiran MD Procedure Note Interface, Radiology Results In - 02/11/2018 10:40 AM CDT Transesophageal Echo Report [id number], [place] [address] Pat.Name: ERICK BENSON Pat.ID: [id number] .Date: 02/11/2018 Refer.MD: YARY ROMERO MD Exam Time: 9:19:00 AM Study Type:VAUGHN Height: 68in Weight: 226lb BSA: 2.15 m2 Age: 6 1955,63Y Sex: MALE BP: 137/65 HR: 68 bpm Sonogrphr: David Malave MD Pat. Stat.:Inpatient Study Status:Final Echo Event ID:[id number] Order ID: [id number] Reason for Study:R/O ENDOCARDITIS History / Clinical:Chronic Renal Failure, Congestive Heart Failure, Hyperlipidemia, Hypertension Procedures:Transesophageal Echo with Colorflow Doppler Race: B FINDINGS: VAUGHN: The attending hematologist performed the VAUGHN procedure and was present [...] ASA Class: 4 Physician: Cuco Kiran MD Microarray Specialist: David Malave MD Pre VAUGHN BP HR [...] AM Cuco Kiran MD Performing Organization Address City/[facility] Phone Number [facility] [address] [place] [address] Bilirubin direct (02/11/2018 4:00 AM) Bilirubin direct 6.4 (H) 0.0 - 0.3 mg/dL [facility] DEPARTMENT OF PATHOLOGY AND GENOMIC MEDICINE Specimen Plasma specimen Performing Organization Address [facility] Phone Number [facility] DEPARTMENT OF PATHOLOGY AND [address] [place] [address] [employer] MEDICINE Comprehensive metabolic panel (02/11/2018 4:00 AM)Only the most recent of4 resultswithin the time period is included. Sodium 142 135 - 148 mEq/L [facility] DEPARTMENT OF PATHOLOGY AND GENOMIC MEDICINE Potassium 4.2 3.5 - 5.0 mEq/L [facility] DEPARTMENT OF PATHOLOGY AND GENOMIC MEDICINE Chloride 98 98 - 112 mEq/L [facility] DEPARTMENT OF PATHOLOGY AND GENOMIC MEDICINE CO2 27 24 - 31 mEq/L [facility] DEPARTMENT OF PATHOLOGY AND GENOMIC MEDICINE Anion gap 17@ANIO (H) 7 - 15 mEq/L [facility] DEPARTMENT OF PATHOLOGY AND GENOMIC MEDICINE BUN 46 (H) 8 - 23 mg/dL [facility] DEPARTMENT OF PATHOLOGY AND GENOMIC MEDICINE Creatinine 8.0 (H) 0.7 - 1.2 mg/dL [facility] DEPARTMENT OF PATHOLOGY AND GENOMIC MEDICINE Glucose 74 65 - 99 mg/dL [facility] DEPARTMENT OF PATHOLOGY AND GENOMIC MEDICINE Calcium 7.4 (L) 8.8 - 10.2 mg/dL [facility] DEPARTMENT OF PATHOLOGY AND GENOMIC MEDICINE Protein 6.0 (L) 6.3 - 8.3 g/dL [facility] DEPARTMENT OF Comment: PATHOLOGY AND GENOMIC 4.6-7.0 g/dL MEDICINE 1 week 4.4-7.6 g/dL 7 months-1year5.1-7.3 g/dL 1-2 years5.6-7.5 g/dL >3 years6.0-8.0 g/dL 18-150 6.3-8.3 g/dL Albumin 2.0 (L) 3.5 - 5.0 g/dL [facility] DEPARTMENT OF PATHOLOGY AND GENOMIC MEDICINE A/G ratio 0.5 (L) 0.7 - 3.8 [facility] DEPARTMENT OF PATHOLOGY AND GENOMIC MEDICINE Alkaline phosphatase 60 40 - 129 U/L [facility] DEPARTMENT OF PATHOLOGY AND GENOMIC MEDICINE AST 23 10 - 50 U/L [facility] DEPARTMENT OF PATHOLOGY AND GENOMIC MEDICINE ALT <5 (A) 5 - 50 U/L [facility] DEPARTMENT OF PATHOLOGY AND GENOMIC MEDICINE Total bilirubin 7.2 (H) 0.0 - 1.2 mg/dL [facility] DEPARTMENT OF PATHOLOGY AND GENOMIC MEDICINE Specimen Plasma specimen Performing Organization Address City/State/Zipcode Phone Number [facility] DEPARTMENT OF PATHOLOGY AND [address] Pv duplex hemodialysis avg avf access (02/08/2018 6:05 PM) Narrative Performed At [facility] Vascular Ultrasound Laboratory AV Graft - Fistula Report [address] [place] [address].Name:ERICK BENSON Pat.ID:[id number] .Date: 02/08/2018Refer.MD:ASHLEY BORJAS MD Exam Time: 3:41:00 PMStudy Type:AV Graft - Fistula Height:68inDOBAge: 1955,63Y Sex: MALESonogrphr: Christiansen Vi, RVT Pat. Stat.:Inpatient Room:[address] TapeVol: , CPT - 4: 82126 Echo Event ID:[id number] Order ID:[id number] Reason for Study:Left arm pain and swelling, [...] the draining brachial vein. There is a [place] graft that anastomosed to the arterial end of the AV Graft with calcified material are noted. Elevated velocity of 470 cm/sec is seen at the proximal [place] graft. Colorflow and Doppler signals are disturbed. The arterial anastomosis, arterial side, venous side, and venous anastomosis are patent. There is patent stent noted at the proximal upper arm. Volume flow of brachial artery is 1562 cc/min. DOPPLER FINDINGS: ARTERYLOCATIONPSV (cm/sec) LEFTBrachialProximal-third 186 Mid- Distal-ngvte007 Brachial A-Brachial V Arterial Anastomosis 161 AVGProximal graft Anast 470 (Ratio 2.9) Arterial side FA Prox 151 Arterial side FA Mid 121 Mid Ouwef848 Venous side FA Mid 166 Venous side FA Prox 114 Venous side FA stent 143 Venous Anastomosis 190 Brachial veinDistal UA166 Mid-UA161 Proximal UA75 Axillary vein 61 Subclavian vein 66 VOLUME FLOW: Imgkbzwr2457 cc/min 1562 cc/min PRELIMINARY FINDINGS: 1. Patent left brachial artery to brachial vein AV loop graft in the forearm. 2. >50% stenosis at proximalization [place] graft which connecting end to end to the arterial side. 3. Patent stent noted at the left proximal upper arm. 4.Volume ofleft brachial artery is 1562 cc/min. PHYSICIAN INTERPRETATION: Increased flow volume. >50% stenosis at proximalization [place] graft which connecting end to end to the arterial side. Patent stent noted at the left proximal upper arm. Signed 02/09/2018 12:13 AM Diomedes Calderon MD, RPVI Procedure Note Interface, Radiology Results In - 02/09/2018 12:15 AM CDT Vascular Ultrasound Laboratory AV Graft - Fistula Report [address] [address], [place] [address] Pat.Name: ERICK BENSON.ID: [id number] .Date: 02/08/2018 Refer.MD: ASHLEY BORJAS MD Exam Time: 3:41:00 PM Study Type:AV Graft - Fistula Height: 68in Age: 7 1955,63Y Sex: MALE Sonogrphr: Christiansen Vi, RVT Pat. Stat.:Inpatient Room: L6K-6369-B Tape Vol: NICHOLAS, CPT - 4: 98674 Echo Event ID:[id number] Order ID: [id number] Reason for Study:Left arm pain and swelling, [...] the draining brachial vein. There is a [place]y graft that anastomosed to the arterial end of the AV Graft with calcified material are noted. Elevated velocity of 470 cm/sec is seen at the proximal [place] graft. Colorflow and Doppler signals are disturbed. [...] the forearm. 2. >50% stenosis at proximalization [place]y graft which connecting end to end to the arterial side. 3. Patent stent noted at the left proximal upper arm. 4.Volume of left brachial artery is 1562 cc/min. PHYSICIAN INTERPRETATION: Increased flow volume. >50% stenosis at proximalization [place]y graft which connecting end to end to the arterial side. Patent stent noted at the left proximal upper arm. Signed 02/09/2018 12:13 AM Diomedes Calderon MD, RPVI Performing Organization Address [facility]/Zipcode Phone Number [facility] [address] [place] [address] Ionized calcium (2018 1:36 PM) pH 7.46 [facility] DEPARTMENT OF PATHOLOGY AND GENOMIC MEDICINE Ionized calcium 0.90 (L) 1.11 - 1.32 mmol/L [facility] DEPARTMENT OF PATHOLOGY AND GENOMIC MEDICINE Specimen Plasma specimen Performing Organization Address [facility] Phone Number [facility] DEPARTMENT OF PATHOLOGY AND [address] [place] [address] [facility] Fibrinogen (2018 5:39 AM) Fibrinogen 377 200 - 450 mg/dL [facility] DEPARTMENT OF PATHOLOGY AND GENOMIC MEDICINE Specimen Blood Performing Organization Address [facility] Phone Number [facility] DEPARTMENT OF PATHOLOGY AND [address] [place] [address] [facility] Transfuse RBC (02/06/2018 6:37 PM)Only the most recent of2 resultswithin the time period is included.XR Chest 1 Vw Portable (02/06/2018 12:07 PM)Only [...] congestion infiltrate or effusion Single view chest [id number] Procedure Note Interface, Radiology Results Incoming - 02/06/2018 12:18 PM CDT EXAMINATION: XR CHEST 1 VW PORTABLE CLINICAL HISTORY: PICC Line Insertion COMPARISON: February 04, 2018 chest IMPRESSION: Interval placement left IJ dialysis catheter. Catheter tip projects over superior vena cava just below satnam No pneumothorax Cardiomegaly as before. No congestion infiltrate or effusion Single view chest [id number] Performing Organization Address [facility] Phone Number [facility] [address] [place] [address] HEMODIALYSIS CATHETER PLACEMENT (02/06/2018 11:36 AM) Narrative Performed At Ivette Cifuentes MD 02/06/2018 11:38 AM Hemodialysis catheter placement Date/Time: 02/06/2018 11:36 AM Performed by: IVETTE CIFUENTES Authorized by: BRANDON WELDON Consent: Consent obtained:Written Consent given by:Patient Risks discussed:Arterial puncture, bleeding, incorrect placement, pneumothorax and infection [place] protocol: Procedure explained and questions answered to [...] (02/06/2018 6:50 AM) Vancomycin, random 16.4 ug/mL [facility] DEPARTMENT OF PATHOLOGY AND GENOMIC MEDICINE Specimen Serum Performing Organization Address [facility] Phone Number [facility] DEPARTMENT OF PATHOLOGY AND [address] [place] [address] GENOMIC MEDICINE Gastrointestinal panel (02/06/2018 4:15 AM) Gastrointestinal panel Negative for all pathogens tested: [facility] DEPARTMENT OF Negative for Salmonella PATHOLOGY AND [...] Specimen Stool - Nonpreserved Performing Organization Address City/[facility] Phone Number [facility] DEPARTMENT OF PATHOLOGY AND [address] [place] [address] [facility] Hemodialysis (02/05/2018 9:19 AM) Narrative Performed At ARON Ward 02/05/2018 12:45 PM MD Tosha Garcia MD Juan Olivero Sr, MD Cindi Senior Jr, Myriam Tyson, Bijal Tristan, ADRIANE Ballesteros Hemodialysis Procedure Note Indication: ESRD Revaclear 300 x 4 hours UF as tolerated Na 140 K 3 HCO3 35 Ca 2.5 Qb 350 cc/min Anticoagulation: saline flushes only ADRIANE [facility] [phone] Prepare RBC, 1 Units (02/05/2018 9:00 AM) Product name Red Blood Cells -1, [facility] DEPARTMENT OF Leukored PATHOLOGY AND [employer] MEDICINE Unit number [id number] [facility] DEPARTMENT OF PATHOLOGY AND [place]ICINE Product code [id number] [facility] DEPARTMENT OF PATHOLOGY AND GENOMIC MEDICINE Dispense status Transfused [facility] DEPARTMENT OF PATHOLOGY AND GENOMIC MEDICINE Blood expiration date [id number] [facility] DEPARTMENT OF PATHOLOGY AND GENOMIC MEDICINE Blood type code 7300 [facility] DEPARTMENT OF PATHOLOGY AND GENOMIC MEDICINE Blood type B POSITIVE [facility] DEPARTMENT OF PATHOLOGY AND GENOMIC MEDICINE Performing Organization Address City/[facility] Phone Number [facility] DEPARTMENT OF PATHOLOGY AND [address] [place], [place] [id number] [facility] [employer] MEDICINE [place] Hepatic (02/04/2018 9:20 PM) Narrative [...] veins which could represent right-sided failure. Hepatomegaly. [facility]-[id number] . Procedure Note Interface, Radiology Results Incoming [...] veins which could represent right-sided failure. Hepatomegaly. [facility]-[id number] . Performing Organization Address City/State/Zipcode Phone Number [facility] [address] [place] [address] Echocardiogram complete w contrast and 3D if needed (02/04/2018 6:52 PM) Narrative Performed At [facility] Echocardiography Report [address] [address], [place] [address] Pat.Name:ERICK BENSON Pat.ID:[id number] .Date: 02/04/2018 Refer.MD:YARY ROMERO MD Exam Time: 6:09:00 PMStudy Type:Routine Echo Height:68inWeight: 226lb BSA: 2.15 m2 DOBAge:1955,62Y Sex: MALEBP:115/57 HR:84 bpmSonogrphr: Fadumo Sotomayor RDCS Pat. Stat.:Inpatient Room:07 Study Status:Final Echo Event ID:[id number] Order ID:[id number] Reason for Study:Pre-op clearance; History of Congestive [...] of 20 mmHg. MEASUREMENTS: 2D Paras[place] Ao Rtd 3.4 cmIndex1.6 cm/m LVPWd0.9 cm LVOT 2 cmLA Ds5.5 cm LVIDd5.6 cmIndex2.6 cm/m Ao An2 cm LVIDs4.3 cm LV Kzjo810.1 g(122-174) LV%fs 23.2 % LVM Index 82.8 g/m2 IVSd 0.8 cmRWT0.3 LV EF Biplane OCQWA266 ml (65-193) Index68.8 ml/m LV SV 41.8 ml OPXNA767.2 nuCbczd00.4 ml/m LV EF 28.2 %(63-77) Right Ventricle [...] 02/05/2018 9:48 AM CDT Echocardiography Report [address] [place] [address] Pat.Name: ERICK BENSON Pat.ID: [id number] .Date: 02/04/2018 Refer.MD: YARY ROMERO MD Exam Time: 6:09:00 PM Study Type:Routine Echo Height: 68in Weight: 226lb BSA: 2.15 m2 Age: 7 1955,62Y Sex: MALE BP: 115/57 HR: 84 bpm Sonogrphr: Fadumo Sotomayor RDCS Pat. Stat.:Inpatient Room: 07 Study Status:Final Echo Event ID:[id number] Order ID: [id number] Reason for Study:Pre-op clearance; History of Congestive [...] of 20 mmHg. MEASUREMENTS: 2D Parasternal [place] Ao Rtd 3.4 cm Index 1.6 cm/m [...] AM Megan Miller MD Performing Organization Address [facility] Phone Number [facility] [address] [place] [address] B natriuretic peptide (02/04/2018 2:45 PM) BNP >5000 (H) 0 - 100 pg/mL [facility] DEPARTMENT OF PATHOLOGY Comment: AND [place] [employer] MEDICINE Increased result of BNP most likely represents recent infusion of recombinant BNP. For monitoring, because of the short half-life of BNP (20 minutes), measurements taken 2 hours after cessation of treatment again reflects the level of endogenous BNP. Specimen Blood Performing Organization Address [facility] Phone Number [facility] DEPARTMENT OF PATHOLOGY AND [address] [place] [address] [place] [employer] Hemoglobin A1c (02/04/2018 2:45 PM) Hemoglobin A1C 5.3 4.0 - 5.6 % [facility] DEPARTMENT OF PATHOLOGY Comment: AND [place] MEDICINE HbA1c cutoffs for diagnosing diabetes: 4.0% - 5.6%=normal 5.7% - 6.4%=increased risk for diabetes (prediabetes) >=6.5%=diabetes Goals for glycemic control (ADA 2016) < 7.0%Target for non adults with diabetes. More or less stringent targets may be appropriate for individual patients. <7.5% Target for Children and adolescents with type 1 diabetes. Specimen Blood Performing Organization Address [facility] Phone Number [facility] DEPARTMENT OF PATHOLOGY AND [address] [place] [address] [place] [employer] Hepatic function panel (02/04/2018 2:45 PM) Albumin 3.1 (L) 3.5 - 5.0 g/dL [facility] DEPARTMENT OF PATHOLOGY AND GENOMIC MEDICINE Total bilirubin 2.1 (H) 0.0 - 1.2 mg/dL [facility] DEPARTMENT OF PATHOLOGY AND GENOMIC MEDICINE Bilirubin direct 1.5 (H) 0.0 - 0.3 mg/dL [facility] DEPARTMENT OF PATHOLOGY AND GENOMIC MEDICINE Alkaline phosphatase 68 40 - 129 U/L [facility] DEPARTMENT OF PATHOLOGY AND GENOMIC MEDICINE Protein 6.4 6.3 - 8.3 g/dL [facility] DEPARTMENT OF Comment: PATHOLOGY AND GENOMIC [place] 4.6-7.0 g/dL MEDICINE 1 week 4.4-7.6 g/dL 7 months-1year5.1-7.3 g/dL 1-2 years5.6-7.5 g/dL >3 years6.0-8.0 g/dL 18-150 6.3-8.3 g/dL ALT 10 5 - 50 U/L [facility] DEPARTMENT OF PATHOLOGY AND GENOMIC MEDICINE AST 20 10 - 50 U/L [facility] DEPARTMENT OF PATHOLOGY AND GENOMIC MEDICINE Specimen Plasma specimen Performing Organization Address City/State/Zipcode Phone Number [facility] DEPARTMENT OF PATHOLOGY AND [address] [place] [address] [place] [employer] MEDICINE after 04/20/2017 Insurance Payer Benefit Plan / Group Subscriber ID Type Phone Address MEDICARE MEDICARE PART A AND B xxxxxxxxxx Medicare [place], [place] Home: [facility] [place][note 2] [address] [phone] [address]
--- NOTE | 2018-04-21 11:09 | EDPHYS ---
Physician Documentation [facility] Name: Erick Benson Age: 63 yrs Sex: Male : 1955 Arrival Date: 04/21/2018 Time: 10:28 Bed 4 Private MD: ED Physician Safia Allan HPI: 04/21 10:52 This 63 yrs old Black Male presents to ER via EMS with complaints of Dialysis Shunt ma2 Problem. 10:52 The patient has an AV graft in the left arm. Type of problem: bleeding at site. Onset: ma2 The symptoms/episode began/occurred suddenly, 1 day(s) ago. The malfunction was discovered at home. Associated signs and symptoms: Pertinent positives: Pertinent negatives: fever, swelling, redness in area. The patient has experienced a previous episode. 10:57 active A-V HD fistula bleeding x 1 hour, pressure dressing applied 1 hour ago, that ma2 stopped the bleeding, once the dressing is taken off, it re-bleed again . Historical: - Allergies: 10:35 Ibuprofen; hb - Home Meds: 10:35 Metoprolol Tartrate Oral [Active]; Nexium Oral [Active]; Renvela Oral [Active]; hb Sensipar Oral [Active]; - PMHx: 10:35 dialysis Tues/Th/Sat; CHF; Hypertension; Renal Disease; hb - Immunization history:: Adult Immunizations up to date. - Social history:: Smoking status: Patient/guardian denies using tobacco, Patient/guardian denies using alcohol, street drugs, The patient lives with family. - Ebola Screening: : No symptoms or risks identified at this time. - Family history:: not pertinent. ROS: 10:57 Constitutional: Negative for fever, chills, and weight loss. ma2 10:57 MS/extremity: Positive for left upper arm AV fistula bleed that is controlled temporary with pressure dressing , Negative for acute changes, abrasion, decreased range of motion, erythema, pain, paresthesias, rash. 10:57 All other systems are negative. 10:57 MS/extremity: Positive for ma2 Exam: 10:57 Constitutional: This is a well developed, well nourished patient who is awake, alert, ma2 and in no acute distress. Head/Face: Normocephalic, atraumatic. Neck: Trachea midline, no thyromegaly or masses palpated, and no cervical lymphadenopathy. Supple, full range of motion without nuchal rigidity, or vertebral point tenderness. No Meningismus. Cardiovascular: Regular rate and rhythm with a normal S1 and S2. No gallops, murmurs, or rubs. Normal PMI, no JVD. No pulse deficits. Respiratory: Lungs have equal breath sounds bilaterally, clear to auscultation and percussion. No rales, rhonchi or wheezes noted. No increased work of breathing, no retractions or nasal flaring. 10:57 Musculoskeletal/extremity: ROM: no acute changes, Pulses: are normal with no ma2 appreciated deficits, Sensation intact. Compartment Syndrome exam of affected extremity: DVT Exam: active bleeding from left UE AV dialysis fistula, that is controlled temporary with pressure dressing . Vital Signs: 10:37 BP 107 / 68; Pulse 92; Resp 15; Temp 98.2; Pulse Ox 98% on R/A; Pain 0/10; hb 10:37 Weight 104.33 kg (R); sg 11:56 BP 108 / 70; Pulse 87; Resp 16 S; Pulse Ox 100% on R/A; sg 12:24 BP 109 / 57; Pulse 58; Resp 12; Pulse Ox 100% on R/A; Pain 8/10; sg MDM: 10:40 Patient medically screened. ma2 10:57 Differential diagnosis: shunt malfunction, infected shunt, shunt bleeding, shunt ma2 malfunction. Data reviewed: vital signs, nurses notes, diagnostic data from outside facility. Counseling: I had a detailed discussion with the patient and/or guardian regarding: the historical points, exam findings, and any diagnostic results supporting the discharge/admit diagnosis, the presence of at least one elevated blood pressure reading (>120/80) during this emergency department visit. ED course: discussed with RAMÓN Ledbetter, Dr. Blanco vascular surgery at [facility], accepted the transfer, emergency transfer for continuity of care, as the graft was done there and he saw the patient on Thursday . Administered Medications: 12:24 Drug: [place] (7.5 mg-325 mg) 1 tabs Route: PO; ss 12:40 Follow up: Response: No adverse reaction; Pain is decreased sg Disposition: 04/21/18 11:09 Transfer ordered to [facility]. Diagnosis is Leakage of surgically created arteriovenous fistula. - Reason for transfer: Higher level of care. - Accepting physician is Rosengerge, vascular surgery . - Condition is Stable. - Problem is an acute exacerbation. - Symptoms have worsened. Signatures: Elida Avila RN RN Fanta Krishnamurthy RN RN hb Alzahri, Mohammad, MD MD ma2 Meme Johnson Steven RN sg Corrections: (The following items were deleted from the chart) 13:13 11:09 04/21/2018 11:09 Transfer ordered to [facility]. Diagnosis is eb Leakage of surgically created arteriovenous fistula. Reason for transfer: Higher level of care. Accepting physician is Rosengershola, vascular surgery . Condition is Stable. Problem is an acute exacerbation. Symptoms have worsened. ma2
--- NOTE | 2018-04-21 11:09 | ER ---
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 Pt had surgery to close fistula in February, revision in March, has home health for chronic wound at surgery site, has had some bleeding before today. Transition of care: patient was not received from another setting of care. Onset of symptoms was April 21, 2018. Risk Assessment: Do you want to hurt yourself or someone else? Patient reports no desire to harm self or others. Initial Sepsis Screen: Does the patient meet any 2 criteria? No. Patient's initial sepsis screen is negative. Does the patient have a suspected source of infection? No. Patient's initial sepsis screen is negative. Care prior to arrival: Bleeding of injury controlled. 10:30 Method Of Arrival: EMS: [facility] hb 10:30 Acuity: ANCELMO 3 hb 10:36 Note Surgeon: Dr. Augusto Wick at [facility]. hb Historical: - Allergies: 10:35 Ibuprofen; hb - Home Meds: 10:35 Metoprolol Tartrate Oral [Active]; Nexium Oral [Active]; Renvela Oral [Active]; hb Sensipar Oral [Active]; - PMHx: 10:35 dialysis Tues/Th/Sat; CHF; Hypertension; Renal Disease; hb - Immunization history:: Adult Immunizations up to date. - Social history:: Smoking status: Patient/guardian denies using tobacco, Patient/guardian denies using alcohol, street drugs, The patient lives with family. - Ebola Screening: : No symptoms or risks identified at this time. - Family history:: not pertinent. Screenin:37 Abuse screen: Denies threats or abuse. Denies injuries from another. Nutritional hb screening: No deficits noted. Tuberculosis screening: No symptoms or risk factors identified. Fall Risk Total Graham Fall Scale indicates Low Risk Score (25-44 pts). Fall prevention measures have been instituted. Side Rails Up X 2 Frequent Obs/Assesments occuring As available Patient and Family Educated on Fall Prevention Program and strategies. Assessment: 11:30 General: Appears in no apparent distress. comfortable, well groomed, well developed, sg well nourished, Behavior is calm, cooperative, appropriate for age. Pain: Complains of pain in left arm Quality of pain is described as throbbing. Neuro: Level of Consciousness is awake, alert, obeys commands, Oriented to person, place, time, situation, Rope Making Machine Operator are equal bilaterally Speech is normal, Facial symmetry appears normal. Cardiovascular: Heart tones S1 S2 present Capillary refill is brisk in bilateral fingers Patient's skin is warm and dry. Pulses are palpable in right radial artery and left radial artery. Respiratory: Airway is patent Respiratory effort is even, unlabored, Respiratory pattern is regular, symmetrical. GI: Abdomen is round. : No signs and/or symptoms were reported regarding the genitourinary system. EENT: No signs and/or symptoms were reported regarding the EENT system. Derm: Skin is intact, Skin is dry, Skin is normal, Skin temperature is warm. Musculoskeletal: No signs and/or symptoms reported regarding the musculoskeletal system. 12:01 Reassessment: instructed by Lou HOLLOWAYbellows charger assembler nurse for [facility] to please call sg back in 15 mins as they are trying to rearrange the pt assignment at this time. pt and pt family updated, will attempt to call report in 15 mins. Elida HOLLOWAY charge nurse notified. General: Appears in no apparent distress. Vital Signs: 10:37 BP 107 / 68; Pulse 92; Resp 15; Temp 98.2; Pulse Ox 98% on R/A; Pain 0/10; hb 10:37 Weight 104.33 kg (R); sg 11:56 BP 108 / 70; Pulse 87; Resp 16 S; Pulse Ox 100% on R/A; sg 12:24 BP 109 / 57; Pulse 58; Resp 12; Pulse Ox 100% on R/A; Pain 8/10; sg ED Course: 10:28 Patient arrived in ED. hb 10:34 Triage completed. hb 10:37 Arm band placed on right wrist. hb 10:37 Patient has correct armband on for positive identification. Bed in low position. Call light in reach. Side rails up X2. 10:40 Safia Allan MD is Attending Physician. ma2 10:[address] Blanco's office at [phone]/ connected his PA with ED doc for eb potential patient transfer consulation. 11:06 initiated a transfer to [facility] with Carla at the transfer center. eb 11:30 a pressure dressing was applied to left forearm by , using 4x4's and an [place] sg wrap. Patient did not have IV access during this emergency room visit. 11:51 Timothy Jay, RN is Primary Nurse. sg 11:58 transfer transportation to receiving facility. sg Administered Medications: 12:24 Drug: [place] (7.5 mg-325 mg) 1 tabs Route: PO; ss 12:40 Follow up: Response: No adverse reaction; Pain is decreased sg Outcome: 11:09 ER care complete, transfer ordered by MD. cotter 12:34 Transferred by ground EMS to [facility] TM, Transfer form completed. sg 12:34 Condition: stable 12:34 Instructed on the need for transfer, safety practices, Demonstrated understanding of instructions, wound care, Report given to Joan HOLLOWAY at [address] 13:13 Patient left the ED. eb Signatures: Timothy Jay, RN Elida Tim RN RN ss Baxter, Heather, RN RN Safia Allan MD MD ma2 Botello, Elizabeth eb
[2018-04-21] MEDS ORDERED: HYDROCODONE/APAP 7.5/325 MG TAB ONE (12:28)
[2018-04-21 13:18] VITALS: TEMP 98.2
[2018-04-21 13:19] VITALS: O2SAT 100
[2018-04-21 13:21] VITALS: BP 109/57
== END 2018-04-21 13:13 | disposition short-term general hospital (02) ==
LOC: ER 10:27
DX: T82.898A Other specified complication of vascular prosthetic devices, implants and grafts, initial encounter (principal); I10 Essential (primary) hypertension; I50.9 Heart failure, unspecified; Z88.6 Allergy status to analgesic agent; Z99.2 Dependence on renal dialysis
CPT/HCPCS: 99285

== ENCOUNTER 2020-10-14 05:58 | Emergency (ER) | payer OTHER ==
--- OUTSIDE RECORDS SUMMARY | 2020-10-14 06:02 | XMS REPORT | Continuity of Care Document ---
:1955 Author Organization [facility] t Address [address] [place] [address] Care Team Providers Name Role Phone SAMINA Attending Clinician Unavailable SAMINA Admitting Clinician Unavailable Problems This patient has no known problems. Allergies, Adverse Reactions, Alerts This patient has no known allergies or adverse reactions. Medications This patient has no known medications. Procedures This patient has no known procedures. Encounters Start End Encounter Admission Attending Care Care Encounter Source Date/Time Date/Time Type Type Clinicians Facility Department ID 2020-10-03 2020-10-03 Outpatient [facility] [id number] [place] 00:00:00 00:00:[address] 2020-09-17 2020-09-17 [facility] [id number] [place] 00:00:00 00:00:00 [facility] [address] 2020-09-05 2020-09-05 [place] [facility] [facility] [id number] [place] 00:00:00 00:00:00 [facility] [address] 2020-09-03 2020-09-03 Outpatient [facility] [id number] [place] 00:00:00 00:00:00 [facility] [address] 2020-08-31 2020-08-31 Outpatient [facility] [id number] [place] 00:00:00 00:00:00 [facility] [address] 2020-08-27 2020-08-27 Outpatient [facility] [id number] [place] 00:00:00 00:00:00 [facility] [address] Results This patient has no known results.
[2020-10-14] MEDS ORDERED: ACETAMINOPHEN 325 MG TABLET ONE (08:00)
[2020-10-14 08:19] LABS: Absolute Lymphocytes (CBC) 0.5 K/uL (0.7-4.9); Basophils % 0.7 % (0-1.3); Hematocrit 36.1 % (39.6-49.0); MPV 9.9 fL (7.6-11.3); RBC Red Blood Cell Count 4.19 M/uL (4.33-5.43)
[2020-10-14 08:25] LABS: Protime INR 1.28
[2020-10-14] MEDS ORDERED: VANCOMYCIN/NS 1 gm 1 GM/250 ML BAG IVPB ONE (09:00)
[2020-10-14] MEDS ORDERED: Gentamicin Inj 150 MG in NA CHLORIDE 0.9% 100 ML IVPB ONE (09:00)
[2020-10-14 09:12] LABS: Albumin 3.5 g/dL (3.4-5.0); Bilirubin Direct 0.1 mg/dL (0-0.2); Bilirubin Total 0.3 mg/dL (0.2-1.0); Magnesium 1.9 mg/dL (1.8-2.4); Potassium 4.1 mmol/L (3.5-5.1); Protein, Total 8.6 g/dL (6.4-8.2); Troponin (Emerg Dept Use Only) 0.04 ng/mL (0.0-0.045)
[2020-10-14 09:37] LABS: Blood Morphology Comment NOT SEEN (NOT SEEN); Platelet Estimate DECR; White Blood Cell Scan OK (OK)
[2020-10-14] MEDS ORDERED: METOPROLOL TAR 50 MG TAB ONE (09:42)
--- NOTE | 2020-10-14 10:03 | ER ---
Nurse's Notes [facility] Name: Erick Benson Age: 65 yrs Sex: Male : 1955 Arrival Date: 10/14/2020 Time: 06:02 Bed 23 Private MD: Diagnosis: Acute upper respiratory infection, unspecified-Covid 19;Atrial fibrillation and flutter;Fever, unspecified;End stage renal disease-on HD. ;Hypotension Presentation: 10/14 06:42 Chief complaint: Patient states: I AM FREEZING EVERY TIME I AM ON DIALYSIS, I DO NOT rv FEEL GOOD, BUT AFTER THE DIALYSIS I WILL FEEL BETTER. DENIES FEVER, COUGH. Coronavirus screen: Client denies travel out of the [place] in the last 14 days. At this time, the client does not indicate any symptoms associated with coronavirus-19. Ebola Screen: No symptoms or risks identified at this time. Initial Sepsis Screen: Does the patient meet any 2 criteria? No. Patient's initial sepsis screen is negative. Does the patient have a suspected source of infection? No. Patient's initial sepsis screen is negative. Risk Assessment: Do you want to hurt yourself or someone else? Patient reports no desire to harm self or others. Onset of symptoms was October 11, 2020. 06:42 Method Of Arrival: Ambulatory rv 06:42 Acuity: ANCELMO 3 rv Triage Assessment: 06:46 General: Appears comfortable, Behavior is calm, cooperative. Pain: Denies pain. EENT: rv No signs and/or symptoms were reported regarding the EENT system. Neuro: Level of Consciousness is awake, alert, obeys commands, Oriented to person, place, time, situation. Cardiovascular: Patient's skin is warm and dry. Respiratory: Airway is patent Respiratory effort is even, unlabored. Derm: Skin is intact. Historical: - Allergies: 06:46 Ibuprofen; rv - Home Meds: 07:05 Renvela Oral [Active]; midodrine oral oral before dialysis [Active]; Eliquis oral oral sf [Active]; Vitamin D3 oral oral [Active]; Probiotic oral oral [Active]; - PMHx: 06:46 CHF; dialysis Tues/Thurs/Sat; Hypertension; Renal Disease; rv - PSHx: 07:05 Dialysis access, left arm; sf - Immunization history:: Adult Immunizations up to date. - Social history:: Smoking status: Patient denies any tobacco usage or history of. - Family history:: not pertinent. Screenin:40 Abuse screen: Denies threats or abuse. Denies injuries from another. Nutritional sf screening: No deficits noted. Tuberculosis screening: No symptoms or risk factors identified. Never had TB. Possible symptoms: None Risk factors: None. Fall Risk None identified. No fall in past 12 months (0 pts). No secondary diagnosis (0 pts). No IV (0 pts). Ambulatory Aid- None/Bed Rest/Nurse Assist (0 pts). Gait- Normal/Bed Rest/Wheelchair (0 pts) Mental Status- Oriented to own ability (0 pts). Total Graham Fall Scale indicates No Risk (0-24 pts). Assessment: 06:40 General: Appears in no apparent distress. comfortable, Behavior is calm, cooperative, sf appropriate for age. Pain: Denies pain. Neuro: No deficits noted. Level of Consciousness is awake, alert, Oriented to person, place, time, situation, Appropriate for age. Cardiovascular: No deficits noted. Patient's skin is warm and dry. Respiratory: No deficits noted. Airway is patent Respiratory effort is even, unlabored, Respiratory pattern is regular, symmetrical. GI: No signs and/or symptoms were reported involving the gastrointestinal system. : Reports inability to void, due to dialysis. Dialysis Thursday, , Saturdays. Reports feeling chills while in dialysis. 08:05 Reassessment: Patient appears in no apparent distress at this time. Patient and/or ca1 family updated on plan of care and expected duration. Pain level reassessed. Patient is alert, oriented x 3, equal unlabored respirations, skin warm/dry/pink. 09:10 Reassessment: Patient appears in no apparent distress at this time. Patient and/or ca1 family updated on plan of care and expected duration. Pain level reassessed. Patient is alert, oriented x 3, equal unlabored respirations, skin warm/dry/pink. 10:12 Reassessment: Patient appears in no apparent distress at this time. Patient is alert, ca1 oriented x 3, equal unlabored respirations, skin warm/dry/pink. Vital Signs: 06:42 Temp 99.7; Weight 101.15 kg; Height 5 ft. 8 in. (172.72 cm); rv 06:43 BP 104 / 63; sf 08:30 BP 104 / 63; Pulse 114; Resp 18 S; Pulse Ox 100% on R/A; ca1 09:00 BP 94 / 65; Pulse 113; Resp 15 S; Pulse Ox 100% on R/A; ca1 09:10 BP 103 / 55; Pulse 119; Resp 20 S; Pulse Ox 100% on R/A; ca1 10:00 BP 90 / 62; Pulse 94; Resp 16 S; Pulse Ox 99% on R/A; ca1 10:45 BP 97 / 69; Pulse 86; Resp 16 S; Temp 99.3(O); Pulse Ox 100% on R/A; ca1 06:42 Body Mass Index 33.91 (101.15 kg, 172.72 cm) rv ED Course: 06:02 Patient arrived in ED. am4 06:39 Timothy Giron, RN is Primary Nurse. sf 06:40 Patient has correct armband on for positive identification. Bed in low position. Call sf light in reach. Side rails up X 1. Pulse ox on. NIBP on. Door closed. Noise minimized. Visitors limited. Verbal reassurance given. 06:41 Jason Allison MD is Attending Physician. sarah 06:45 Triage completed. rv 06:46 Arm band placed on right wrist. Patient placed in the treatment room, on a stretcher, rv Patient notified of wait time. 07:07 Primary Nurse role handed off by Timothy Giron, AMIE sg 07:07 Timtohy Jay, RN is Primary Nurse. sg 07:17 Report given to Timothy Cruz RN. sf 07:45 Initial lab(s) drawn, by ma, sent to lab. First set of blood cultures drawn by ma. sg Inserted saline lock: 22 gauge in right antecubital area, using aseptic technique. Blood collected. 08:00 Second set of blood cultures drawn by ma, COVID swab sent to lab. sg 08:02 XRAY Chest (1 view) In Process Unspecified. EDMS 08:31 Mira Mckeon, RN is Primary Nurse. ca1 10:00 Cesar Rhodes DO is Referral Physician. sarah 10:00 Safia Alcantar MD is Referral Physician. sarah 10:52 No provider procedures requiring assistance completed. IV discontinued, intact, ca1 bleeding controlled, No redness/swelling at site. Pressure dressing applied. Administered Medications: 08:21 Drug: Tylenol 650 mg Route: PO; rr5 10:41 Follow up: Response: No adverse reaction; Temperature is decreased ca1 08:26 Drug: Gentamicin 1.5 mg/kg Route: IVPB; Infused Over: 30 mins; Site: right antecubital; ca1 08:58 Follow up: Response: No adverse reaction; IV Status: Completed infusion; IV Intake: ca1 100ml 08:58 Drug: vancoMYCIN 1 grams Route: IVPB; Infused Over: 2 hrs; Site: right antecubital; ca1 10:41 Follow up: Response: No adverse reaction; IV Status: Completed infusion; IV Intake: ca1 250ml 09:26 Drug: Lopressor (metoprolol TARTRATE) 50 mg Route: PO; ca1 10:42 Follow up: Response: No adverse reaction; No adverse reactionHR decreased ca1 10:00 Drug: Pepcid 20 mg Route: IVP; Site: right antecubital; ca1 10:42 Follow up: Response: No adverse reaction ca1 10:02 Drug: Zithromax 500 mg Route: PO; ca1 10:42 Follow up: Response: No adverse reaction ca1 10:03 Drug: Decadron - Dexamethasone 10 mg Route: IVP; Site: right antecubital; ca1 10:42 Follow up: Response: No adverse reaction ca1 Intake: 08:58 IV: 100ml; Total: 100ml. ca1 10:41 IV: 250ml; Total: 350ml. ca1 Outcome: 10:03 Discharge ordered by . sarah 10:52 Discharged to home via wheelchair. ca1 10:52 Condition: stable 10:52 Discharge instructions given to patient, Instructed on discharge instructions, follow up and referral plans. medication usage, Demonstrated understanding of instructions, follow-up care, medications, Prescriptions given X x6 10:53 Patient left the ED. ca1 Signatures: Dispatcher [employer] EDMS Timothy Jay RN RN sg Anderson, Corey, MD MD cha Vicente, Ronaldo, RN RN Sandeep Wiggins RN RN rr5 Mira Mckeon RN RN ca1 Joan Estrada Timothy Post RN RN sf Corrections: (The following items were deleted from the chart) 07:06 06:46 PSHx: None; rv sf 07: 07:17 Report given to Anthony Aguirre RN [facility] 07:00 Reassessment: Patient appears in no apparent distress at this time. Patient rr5 and/or family updated on plan of care and expected duration. Pain level reassessed. Patient is alert, oriented x 3, equal unlabored respirations, skin warm/dry/pink. [facility] :59 07:45 Inserted saline lock: 22 gauge in right antecubital area, using aseptic rr5 technique. Blood collected. [facility] 07:45 Initial lab(s) drawn, by ma, sent to lab. First set of blood cultures drawn by [facility], [facility] 08:00 Second set of blood cultures drawn by ma, [place] [id number] 08:00 COVID swab sent to lab. a lactate has been sent [facility]5
--- NOTE | 2020-10-14 10:03 | EDPHYS ---
Physician Documentation [facility] Name: Erick Benson Age: 65 yrs Sex: Male : 1955 Arrival Date: 10/14/2020 Time: 06:02 Bed 23 Private MD: ED Physician Jason Allison HPI: 10/14 09:56 This 65 yrs old Black Male presents to ER via Ambulatory with complaints of CHILLS. sarah 09:56 weak, chillls, esrd on hd, t,, sat. Onset: The symptoms/episode began/occurred 1 sarah day(s) ago. The patient reports fever, not measured (subjective). Modifying factors: there are no obvious modifying factors. Associated signs and symptoms: Pertinent positives: cough, runny nose. Severity of symptoms: At their worst the symptoms were mild in the emergency department the symptoms are unchanged. The patient has experienced similar episodes in the past, a few times. Historical: - Allergies: 06:46 Ibuprofen; rv - Home Meds: 07:05 Renvela Oral [Active]; midodrine oral oral before dialysis [Active]; Eliquis oral oral sf [Active]; Vitamin D3 oral oral [Active]; Probiotic oral oral [Active]; - PMHx: 06:46 CHF; dialysis //Thu; Hypertension; Renal Disease; rv - PSHx: 07:05 Dialysis access, left arm; sf - Immunization history:: Adult Immunizations up to date. - Social history:: Smoking status: Patient denies any tobacco usage or history of. - Family history:: not pertinent. ROS: 09:56 Constitutional: Negative for fever, chills, and weight loss, Eyes: Negative for injury, sarah pain, redness, and discharge, ENT: Negative for injury, pain, and discharge, Neck: Negative for injury, pain, and swelling, Abdomen/GI: Negative for abdominal pain, nausea, vomiting, diarrhea, and constipation, Back: Negative for injury and pain, : Negative for injury, bleeding, discharge, and swelling, MS/Extremity: Negative for injury and deformity, Skin: Negative for injury, rash, and discoloration, Neuro: Negative for headache, weakness, numbness, tingling, and seizure, Psych: Negative for depression, anxiety, suicide ideation, homicidal ideation, and hallucinations, Allergy/Immunology: Negative for hives, rash, and allergies, Endocrine: Negative for neck swelling, polydipsia, polyuria, polyphagia, and marked weight changes. 09:56 Cardiovascular: Positive for palpitations. 09:56 Respiratory: Positive for cough, with no reported sputum. Exam: 09:56 Head/Face: Normocephalic, atraumatic. Eyes: Pupils equal round and reactive to light, sarah extra-ocular motions intact. Lids and lashes normal. Conjunctiva and sclera are non-icteric and not injected. Cornea within normal limits. Periorbital areas with no swelling, redness, or edema. ENT: Nares patent. No nasal discharge, no septal abnormalities noted. Tympanic membranes are normal and external auditory canals are clear. Oropharynx with no redness, swelling, or masses, exudates, or evidence of obstruction, uvula midline. Mucous membranes moist. Neck: Trachea midline, no thyromegaly or masses palpated, and no cervical lymphadenopathy. Supple, full range of motion without nuchal rigidity, or vertebral point tenderness. No Meningismus. Chest/axilla: Normal chest wall appearance and motion. Nontender with no deformity. No lesions are appreciated. Respiratory: Lungs have equal breath sounds bilaterally, clear to auscultation and percussion. No rales, rhonchi or wheezes noted. No increased work of breathing, no retractions or nasal flaring. Abdomen/GI: Soft, non-tender, with normal bowel sounds. No distension or tympany. No guarding or rebound. No evidence of tenderness throughout. Back: No spinal tenderness. No costovertebral tenderness. Full range of motion. Male : Normal genitalia with no discharge or lesions. Skin: Warm, dry with normal turgor. Normal color with no rashes, no lesions, and no evidence of cellulitis. MS/ Extremity: Pulses equal, no cyanosis. Neurovascular intact. Full, normal range of motion. Neuro: Awake and alert, GCS 15, oriented to person, place, time, and situation. Cranial nerves II-XII grossly intact. Motor strength 5/5 in all extremities. Sensory grossly intact. Cerebellar exam normal. Normal gait. Psych: Awake, alert, with orientation to person, place and time. Behavior, mood, and affect are within normal limits. 09:56 Cardiovascular: Rate: tachycardic, actual rate is 119 bpm. 09:56 Respiratory: the patient does not display signs of respiratory distress, Respirations: normal, Breath sounds: are clear throughout, no acute changes, Respiratory rate: 18 09:56 Musculoskeletal/extremity: DVT Exam: No signs of deep vein thrombosis. no pain, no swelling, no tenderness, negative Homans' sign noted on exam, no appreciated bluish discoloration, no erythema, no increased warmth. Vital Signs: 06:42 Temp 99.7; Weight 101.15 kg; Height 5 ft. 8 in. (172.72 cm); rv 06:43 BP 104 / 63; sf 08:30 BP 104 / 63; Pulse 114; Resp 18 S; Pulse Ox 100% on R/A; ca1 09:00 BP 94 / 65; Pulse 113; Resp 15 S; Pulse Ox 100% on R/A; ca1 09:10 BP 103 / 55; Pulse 119; Resp 20 S; Pulse Ox 100% on R/A; ca1 10:00 BP 90 / 62; Pulse 94; Resp 16 S; Pulse Ox 99% on R/A; ca1 10:45 BP 97 / 69; Pulse 86; Resp 16 S; Temp 99.3(O); Pulse Ox 100% on R/A; ca1 06:42 Body Mass Index 33.91 (101.15 kg, 172.72 cm) rv MDM: 06:41 Patient medically screened. sarah 09:59 Differential diagnosis: viral Infection, bacterial infection, URI, bronchitis, sarah pneumonia UTI. Data reviewed: vital signs, nurses notes, old medical records, lab test result(s), EKG, radiologic studies, plain films. Data interpreted: monitoring tech: Pulse oximetry:. Test interpretation: by ED physician or midlevel provider: ECG, plain radiologic studies. Counseling: I had a detailed discussion with the patient and/or guardian regarding: the historical points, exam findings, and any diagnostic results supporting the discharge/admit diagnosis, lab results, radiology results, the need for outpatient follow up, for definitive care, a insurance underwriter, a family practitioner, an geological drafter, dr salas, nephrology. 10:05 ED course: HX OF A FIB IN THE PAST, ON ELIQUIS, SEES DR ALCANTAR. [facility] 10/14 07:19 Order name: Basic Metabolic Panel; Complete Time: 09:48 [facility] 10/14 07:19 Order name: CBC with Diff; Complete Time: 09:48 [facility] 10/14 07:19 Order name: LFT's; Complete Time: 09:48 [facility] 10/14 07:19 Order name: Magnesium; Complete Time: 09:48 sarah 10/14 07:19 Order name: NT PRO-BNP; Complete Time: 09:48 sarah 10/14 07:19 Order name: PT-INR; Complete Time: 08:55 [facility] 10/14 07:19 Order name: Troponin (emerg Dept Use Only); Complete Time: 09:48 [facility] 10/14 07:19 Order name: Blood Culture Adult (2) 10/14 07:19 Order name: Lactate; Complete Time: 08:55 [facility] 10/14 08:56 Order name: TSH 10/14 08:56 Order name: Thyroid Stimulating Hormone; Complete Time: 09:48 EDMS 10/14 09:37 Order name: CBC Smear Scan; Complete Time: 09:48 EDMS 10/14 07:19 Order name: XRAY Chest (1 view) 10/14 07:19 Order name: EKG; Complete Time: 07:20 [facility] 10/14 07:19 Order name: Cardiac monitoring; Complete Time: 08:21 [facility] 10/14 07:19 Order name: EKG - Nurse/Tech; Complete Time: 08:31 [facility] 10/14 07:19 Order name: IV Saline Lock; Complete Time: 08:21 sarah 10/14 07:19 Order name: Labs collected and sent; Complete Time: 08:21 sarah 10/14 07:19 Order name: O2 Per Protocol; Complete Time: 08:21 [facility] 10/14 07:19 Order name: O2 Sat Monitoring; Complete Time: 08:21 [facility] 10/14 09:44 Order name: SARS-COV-2 RT PCR; Complete Time: 09:48 EDMS Administered Medications: 08:21 Drug: Tylenol 650 mg Route: PO; rr5 10:41 Follow up: Response: No adverse reaction; Temperature is decreased ca1 08:26 Drug: Gentamicin 1.5 mg/kg Route: IVPB; Infused Over: 30 mins; Site: right antecubital; ca1 08:58 Follow up: Response: No adverse reaction; IV Status: Completed infusion; IV Intake: ca1 100ml 08:58 Drug: vancoMYCIN 1 grams Route: IVPB; Infused Over: 2 hrs; Site: right antecubital; ca1 10:41 Follow up: Response: No adverse reaction; IV Status: Completed infusion; IV Intake: ca1 250ml 09:26 Drug: Lopressor (metoprolol TARTRATE) 50 mg Route: PO; ca1 10:42 Follow up: Response: No adverse reaction; No adverse reactionHR decreased ca1 10:00 Drug: Pepcid 20 mg Route: IVP; Site: right antecubital; ca1 10:42 Follow up: Response: No adverse reaction ca1 10:02 Drug: Zithromax 500 mg Route: PO; ca1 10:42 Follow up: Response: No adverse reaction ca1 10:03 Drug: Decadron - Dexamethasone 10 mg Route: IVP; Site: right antecubital; ca1 10:42 Follow up: Response: No adverse reaction ca1 Disposition: 10/14/20 10:03 Discharged to Home. Impression: Acute upper respiratory infection, unspecified - Covid 19, Atrial fibrillation and flutter, Fever, unspecified, End stage renal disease - on HD. , Hypotension. - Condition is Stable. - Discharge Instructions: Fever, Adult, Upper Respiratory Infection, Adult, Dialysis, Atrial Flutter, Atrial Fibrillation, [id number], Dialysis Diet, [id number], COVID-19. - Prescriptions for Pepcid 20 mg Oral Tablet - take 1 tablet by ORAL route every 12 hours for 30 days; 60 tablet. Toprol XL 25 mg Oral Tablet - take 1 tablet by ORAL route once daily; 20 tablet. Albuterol Sulfate 90 mcg/actuation Inhalation - inhale 2 puff by INHALATION route every 4-6 hours; 1 Inhaler. Zithromax 500 mg Oral Tablet - take 1 tablet by ORAL route once daily for 4 days; 4 tablet. dexamethasone 1 mg Oral tablet - take 3 tablet by ORAL route 3 times per day; 15 tablet. ivermectin 3 mg Oral tablet - take 4 tablet by ORAL route once daily x1 dose DAY #1 AND DAY #3; 8 tablet. - Medication Reconciliation Form, Thank You Letter, Antibiotic Education, Prescription Opioid Use form. - Follow up: Cesar Salas DO; When: Tomorrow; Reason: Recheck today's complaints, Continuance of care, Re-evaluation by your physician. Follow up: Safia Alcantar MD; When: 2 - 3 days; Reason: Recheck today's complaints, Continuance of care, Re-evaluation by your physician. - Problem is new. - Symptoms have improved. Signatures: Dispatcher [employer] EDAZ Jason Allison MD MD cha Vicente, Ronaldo RN RN rv Sandeep Gomez, RN RN rr5 Mira Mckeon RN RN ca1 Timothy Giron, RN RN sf Corrections: (The following items were deleted from the chart) 07:06 06:46 PSHx: None; rv sf 08:50 07:20 CORONAVIRUS+MR.LAB.BRZ ordered. EDAZ EDMS 10:40 07:19 Urine Dipstick-Ancillary ordered. sarah ca1 10:41 07:20 Urine Culture+BA.LAB.BRZ ordered. [facility] EDMS 10:53 10:03 10/14/2020 10:03 Discharged to Home. Impression: Acute upper respiratory ca1 infection, unspecified - Covid 19; Atrial fibrillation and flutter; Fever, unspecified; End stage renal disease - on HD. ; Hypotension. Condition is Stable. Forms are Medication Reconciliation Form, Thank You Letter, Antibiotic Education, Prescription Opioid Use. Follow up: Cesar Salas; When: Tomorrow; Reason: Recheck today's complaints, Continuance of care, Re-evaluation by your physician. Follow up: Safia Alcantar; When: 2 - 3 days; Reason: Recheck today's complaints, Continuance of care, Re-evaluation by your physician. Problem is new. Symptoms have improved. sarah
[2020-10-14] MEDS ORDERED: dexAMETHasone 10 MG/ML VIAL ONE (10:15)
[2020-10-14] MEDS ORDERED: AZITHROMYCIN 250 MG TAB ONE (10:15)
[2020-10-14] MEDS ORDERED: FAMOTIDINE 20 MG/2 ML VIAL IV ONE (10:15)
--- NOTE | 2020-10-14 11:41 | RAD REPORT ---
EXAM DESCRIPTION: RAD - Chest Single View - 10/14/2020 8:02 am CLINICAL HISTORY: COUGH Chest pain. COMPARISON: Chest Single View dated 02/04/2018; CHEST SINGLE VIEW dated 02/16/2015; CHEST SINGLE VIEW dated 10/27/2014; CHEST SINGLE VIEW dated 05/02/2011 FINDINGS: Portable technique limits examination quality. The lungs are grossly clear. The heart is mildly enlarged in size. No displaced fractures.Right-sided venous catheter has tip in the SVC.
[2020-10-14 15:04] VITALS: BP 97/69; TEMP 99.3; O2SAT 100
== END 2020-10-14 10:53 | disposition home or self-care (01) ==
LOC: ER 05:58
DX: U07.1 COVID-19 (principal); J06.9 Acute upper respiratory infection, unspecified; I13.2 Hypertensive heart and chronic kidney disease with heart failure and with stage 5 chronic kidney disease, or end stage renal disease; N18.6 End stage renal disease; I50.9 Heart failure, unspecified; Z99.2 Dependence on renal dialysis; I95.9 Hypotension, unspecified; I48.91 Unspecified atrial fibrillation; I48.92 Unspecified atrial flutter; Z79.01 Long term (current) use of anticoagulants; Z88.6 Allergy status to analgesic agent
CPT/HCPCS: 96365; 96367; 93005; 87040 ×2; 85025; 80048; 36415; 83735; 85610; 80076; 83605; 84443; 84484; 83880; 71045; 96375; 99284; U0003; J1580; J1100; J3370

== ENCOUNTER 2020-10-26 07:09 | Emergency (ER) | payer OTHER ==
--- OUTSIDE RECORDS SUMMARY | 2020-10-26 07:13 | XMS REPORT | Continuity of Care Document ---
:1955 Author Organization [facility] t Address [address] [place] [address] Care Team Providers Name Role Phone SAMINA [...] Clinicians Facility Department ID 2020-10-03 2020-10-03 Outpatient [facility] [id number] [place] 00:00:00 00:00:[address] 2020-09-17 2020-09-17 [id number] [place] 00:00:00 00:00:00 [facility] [address] 2020-09-05 2020-09-05 Outpatient [place] [id number] [place] 00:00:00 00:00:00 [facility] [address] 2020-09-03 2020-09-03 [facility] [id number] [place] [facility]:00 00:00:00 [facility] [address] 2020-08-31 2020-08-31 [facility] 2100 [id number] [place] 00:00:00 00:00:00 [facility] [address] 2020-08-27 2020-08-27 [facility] [id number] [place] 00:00:00 00:00:00 [facility] [address] Results This patient has no known results.
--- NOTE | 2020-10-26 08:20 | RAD REPORT ---
EXAM DESCRIPTION: Evin Single View3 8:06 am CLINICAL HISTORY: Shortness of breath COMPARISON: October 14, 2020 FINDINGS: Moderate bilateral pulmonary opacities. Heart is mildly to moderately enlarged. Central venous catheter in place IMPRESSION: Moderate bilateral pulmonary opacities could represent pneumonia or pulmonary edema
[2020-10-26] MEDS ORDERED: NA CHLORIDE 0.9% 250 ML ONE (08:42)
[2020-10-26 08:49] LABS: Absolute Lymphocytes (CBC) 0.3 K/uL (0.7-4.9); Basophils % 0.6 % (0-1.3); Hematocrit 35.2 % (39.6-49.0); Lymphocytes % 5.4 % (15.3-44.8); RBC Red Blood Cell Count 4.12 M/uL (4.33-5.43)
[2020-10-26 08:52] LABS: Protime INR 1.63
--- NOTE | 2020-10-26 11:29 | RAD REPORT ---
EXAM DESCRIPTION: CT - Chest For Pe Angio - 10/26/2020 10:57 am CLINICAL HISTORY: Shortness of breath COMPARISON: October 26, 2020 chest x-ray TECHNIQUE: Dynamically enhanced axial 3 mm thick images of the chest were obtained during administra tion of <100> mL Isovue 370 IV contrast. Coronal and oblique reconstruction images were generated and reviewed. Exam utilizes a protocol for optimal evaluation of pulmonary arterial tree. Maximum intensity projections 3D imaging was utilized All CT scans are performed using dose optimization technique as appropriate and may include automated exposure control or mA/KV adjustment according to patient size. FINDINGS: A pulmonary embolus is not seen. A thoracic aortic aneurysm is not noted. A pleural effusion is not seen. A pericardial effusion is not seen. Mild to moderate bilateral ground-glass opacities within the lungs IMPRESSION: Negative for a pulmonary embolism. Mild to moderate bilateral ground-glass opacities within the lungs
--- NOTE | 2020-10-26 12:58 | EDPHYS ---
Physician Documentation [facility] Name: Erick Benson Age: 65 yrs Sex: Male : 1955 Arrival Date: 10/26/2020 Time: 07:13 Bed 15 Private MD: ED Physician Junaid To HPI: 10/26 07:55 This 65 yrs old Black Male presents to ER via Ambulatory with complaints of Shortness kdr Of Breath - covid+. 07:55 The patient states that he still feels poorly and doesn't feel that he is "snapping kdr back" as he should. Still has cough and SOB with exertion. He has had poor hydration and nutrition recently. He was at dialysis yesterday without incident. Next dialysis is tomorrow. Historical: - Allergies: 07:35 Ibuprofen; iw - Home Meds: 07:35 Renvela 800 mg oral tab 3 times per day [Active]; albuterol sulfate 90 mcg/actuation iw Inhl HFAA every 4-6 hours [Active]; Eliquis 5 mg oral tab 2 times per day [Active]; metoprolol succinate 25 mg oral Tb24 1 tab once daily [Active]; famotidine 20 mg Oral tab 1 tab every 12 hours [Active]; cinacalcet oral oral 1 tab before treatment [Active]; pantoprazole 40 mg oral TbEC 1 tab once daily [Active]; Vitamin D3 Oral daily [Active]; Probiotic Oral daily [Active]; - PMHx: 07:35 CHF; dialysis //Thu; Hypertension; Renal Disease; iw - PSHx: 07:35 Dialysis access, left arm; iw - Immunization history:: Adult Immunizations up to date. - Social history:: Smoking status: Patient denies any tobacco usage or history of. ROS: 07:57 Constitutional: Negative for fever, chills, and weight loss, Eyes: Negative for injury, kdr pain, redness, and discharge, ENT: Negative for injury, pain, and discharge, Neck: Negative for injury, pain, and swelling, Cardiovascular: Negative for chest pain, palpitations, and edema, Abdomen/GI: Negative for abdominal pain, nausea, vomiting, diarrhea, and constipation, Back: Negative for injury and pain, : Negative for injury, bleeding, discharge, and swelling, MS/Extremity: Negative for injury and deformity, Skin: Negative for injury, rash, and discoloration, Neuro: Negative for headache, weakness, numbness, tingling, and seizure activity. Psych: Negative for depression, anxiety, suicide ideation, homicidal ideation, and hallucinations, Allergy/Immunology: Negative for hives, rash, and allergies, Endocrine: Negative for neck swelling, polydipsia, polyuria, polyphagia, and marked weight changes, Hematologic/Lymphatic: Negative for swollen nodes, abnormal bleeding, and unusual bruising. 07:57 Respiratory: Positive for cough, with no reported sputum, dyspnea on exertion, shortness of breath, Negative for hemoptysis, wheezing. Exam: 07:57 Constitutional: This is a well developed, well nourished patient who is awake, alert, kdr and in no acute distress. Head/Face: Normocephalic, atraumatic. Eyes: Pupils equal round and reactive to light, extra-ocular motions intact. Lids and lashes normal. Conjunctiva and sclera are non-icteric and not injected. Cornea within normal limits. Periorbital areas with no swelling, redness, or edema. Neck: Trachea midline, no thyromegaly or masses palpated, and no cervical lymphadenopathy. Supple, full range of motion without nuchal rigidity, or vertebral point tenderness. No Meningismus. Chest/axilla: Normal chest wall appearance and motion. Nontender with no deformity. No lesions are appreciated. Cardiovascular: Regular rate and rhythm with a normal S1 and S2. No gallops, murmurs, or rubs. Normal PMI, no JVD. No pulse deficits. Respiratory: Lungs have equal breath sounds bilaterally, clear to auscultation and percussion. No rales, rhonchi or wheezes noted. No increased work of breathing, no retractions or nasal flaring. Abdomen/GI: Soft, non-tender, with normal bowel sounds. No distension or tympany. No guarding or rebound. No evidence of tenderness throughout. Back: No spinal tenderness. No costovertebral tenderness. Full range of motion. Skin: Warm, dry with normal turgor. Normal color with no rashes, no lesions, and no evidence of cellulitis. MS/ Extremity: Pulses equal, no cyanosis. Neurovascular intact. Full, normal range of motion. Neuro: Awake and alert, GCS 15, oriented to person, place, time, and situation. Cranial nerves II-XII grossly intact. Motor strength 5/5 in all extremities. Sensory grossly intact. Cerebellar exam normal. Normal gait. Psych: Awake, alert, with orientation to person, place and time. Behavior, mood, and affect are within normal limits. 18:45 ECG was reviewed by the Attending Physician. kdr Vital Signs: 07:27 BP 105 / 68; Pulse 120; Resp 20 S; Temp 97.9; Pulse Ox 99% on R/A; Weight 102.51 kg; iw Height 5 ft. 8 in. (172.72 cm); 08:30 BP 115 / 62; Pulse 107; Resp 20 S; Pulse Ox 99% on R/A; jd3 09:42 BP 117 / 64; Pulse 102; Resp 20 S; Pulse Ox 99% on R/A; jd3 11:32 BP 99 / 60; Pulse 72; Resp 19 S; Pulse Ox 100% on R/A; jd3 12:21 BP 88 / 64; Pulse 108; Resp 19 S; Pulse Ox 98% on R/A; jd3 12:48 BP 149 / 95; Pulse 118; Resp 20 S; Pulse Ox 100% on R/A; iw 07:27 Body Mass Index 34.36 (102.51 kg, 172.72 cm) iw MDM: 12:57 Patient medically screened. kdr 16:48 Data reviewed: vital signs, nurses notes, lab test result(s), radiologic studies. kdr Counseling: I had a detailed discussion with the patient and/or guardian regarding: the historical points, exam findings, and any diagnostic results supporting the discharge/admit diagnosis, lab results, radiology results, the need for outpatient follow up. 10/26 07:48 Order name: Ptt, Activated kdr 10/26 07:48 Order name: Blood Culture Adult (2) kdr 10/26 07:48 Order name: BMP kdr 10/26 07:48 Order name: C-Reactive Protein kdr 10/26 07:48 Order name: CBC with Diff kdr 10/26 07:48 Order name: D-Dimer kdr 10/26 07:48 Order name: Ferritin kdr 10/26 07:48 Order name: Flu kdr 10/26 07:48 Order name: Lactate kdr 10/26 07:48 Order name: LFT's kdr 10/26 07:48 Order name: Lipase kdr 10/26 07:48 Order name: Procalcitonin [facility] 10/26 07:48 Order name: PT-INR; Complete Time: 10:32 [facility] 10/26 07:48 Order name: Strep; Complete Time: 10:32 [facility] 10/26 07:48 Order name: Troponin (emerg Dept Use Only) [facility] 10/26 07:48 Order name: CXR XRAY; Complete Time: 10:32 [facility] 10/26 07:48 Order name: PTT, Activated Partial Thromb; Complete Time: 10:32 [facility] 10/26 07:48 Order name: Blood Culture [facility] 10/26 07:48 Order name: Basic Metabolic Panel [facility] 10/26 07:48 Order name: C-Reactive Protein [facility] 10/26 07:48 Order name: CBC with Automated Diff; Complete Time: 10:32 [facility] 10/26 07:48 Order name: D-Dimer; Complete Time: 10:32 [facility] 10/26 07:48 Order name: Ferritin [facility] 10/26 07:48 Order name: Influenza Screen (A ; Complete Time: 10:32 [facility] 10/26 07:48 Order name: Lactate; Complete Time: 10:32 [facility] 10/26 07:48 Order name: Liver (Hepatic) Function [facility] 10/26 07:48 Order name: Lipase [facility] 10/26 08:52 Order name: Throat Culture [facility] 10/26 07:48 Order name: EKG; Complete Time: 07:49 [facility] 10/26 07:48 Order name: Cardiac monitoring; Complete Time: 07:58 [facility] 10/26 07:48 Order name: Droplet/Contact Precautions; Complete Time: 07:58 [facility] 10/26 07:48 Order name: EKG - Nurse/Tech; Complete Time: 07:58 [facility] 10/26 07:48 Order name: IV Start; Complete Time: 08:23 kdr 10/26 07:48 Order name: Labs collected and sent; Complete Time: 08:23 [facility] 10/26 07:48 Order name: O2 Per Protocol; Complete Time: 07:58 [facility] 10/26 07:48 Order name: O2 Sat Monitoring; Complete Time: 07:58 [facility] 10/26 08:43 Order name: Labs - recollect needed: recollect green top; Complete Time: 09:13 10/26 09:38 Order name: Labs - recollect needed: green top hemolyzed; Complete Time: 13:26 iw 10/26 10:33 Order name: CT Chest For PE Angio; Complete Time: 12:33 kdr 10/26 12:34 Order name: Misc. Order: Ambulate patient and record VS.; Complete Time: 12:47 kdr EC:45 Rate is 106 beats/min. Rhythm is regular, A fib with No ectopy. QRS [place] is Normal. kdr Left axis deviation noted. PA interval is normal. QRS interval is normal. QT interval is normal. Clinical impression: Atrial Fibrillation and No evidence of ischemia. Administered Medications: 08:28 Drug: NS 0.9% 250 ml Route: IV; Rate: bolus; Site: right antecubital; jd3 09:20 Follow up: Response: No adverse reaction; IV Status: Completed infusion iw Disposition: 10/26/20 12:57 Discharged to Home. Impression: SARS-associated coronavirus as the cause of diseases classified elsewhere, Shortness of breath, Atrial fibrillation and flutter. - Condition is Stable. - Discharge Instructions: Shortness of Breath, [id number], Atrial Fibrillation, [id number], COVID-19. - Prescriptions for Diltiazem HCl 30 mg Oral Tablet - take 1 tablet by ORAL route 3 times per day; 90 tablet. Albuterol Sulfate 90 mcg/actuation - inhale 1-2 puff by INHALATION route every 4-6 hours; 1 Inhaler. Promethazine VC 6.25- 5 mg/5 mL Oral syrup - take 5 milliliter by ORAL route every 4-6 hours As needed; 200 milliliter. - Medication Reconciliation Form, Thank You Letter form. - Follow up: Cesar Rhodes DO; When: 2 - 3 days; Reason: If symptoms return, Further diagnostic work-up, Recheck today's complaints, Continuance of care, Re-evaluation by your physician. - Problem is an ongoing problem. - Symptoms have improved. Signatures: Dispatcher [employer] EDMS Junaid To MD MD kdr Gabrielle Grady RN RN iw Bryant Bach RN RN jd3 Botello, Elizabeth eb Corrections: (The following items were deleted from the chart) 09:29 08:54 Manual Differential ordered. [facility] EDMS 13:26 12:57 10/26/2020 12:57 Discharged to Home. Impression: SARS-associated coronavirus as iw the cause of diseases classified elsewhere; Shortness of breath; Atrial fibrillation and flutter. Condition is Stable. Forms are Medication Reconciliation Form, Thank You Letter, Antibiotic Education, Prescription Opioid Use. Follow up: Cesar Rhodes; When: 2 - 3 days; Reason: If symptoms return, Further diagnostic work-up, Recheck today's complaints, Continuance of care, Re-evaluation by your physician. Problem is an ongoing problem. Symptoms have improved. kdr
--- NOTE | 2020-10-26 12:58 | ER ---
Nurse's Notes [facility] Name: Erick Benson Age: 65 yrs Sex: Male : 1955 Arrival Date: 10/26/2020 Time: 07:13 Bed 15 Private MD: Diagnosis: SARS-associated coronavirus as the cause of diseases classified elsewhere;Shortness of breath;Atrial fibrillation and flutter Presentation: 10/26 07:27 Chief complaint: Patient states: COVID+ since October 14, is feeling more SOB, just feels iw bad, no appetite. 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 Coronavirus screen: Client presents with at least one sign or symptom that may indicate coronavirus-19. Standard/surgical mask placed on the client. Provider contacted for isolation considerations. Client reports previous positive COVID test result. Ebola Screen: Patient negative for fever greater than or equal to 101.5 degrees Fahrenheit, and additional compatible Ebola Virus Disease symptoms Patient denies exposure to infectious person. Patient denies travel to an Ebola-affected area in the 21 days before illness onset. No symptoms or risks identified at this time. Initial Sepsis Screen: Does the patient meet any 2 criteria? No. Patient's initial sepsis screen is negative. Does the patient have a suspected source of infection? No. Patient's initial sepsis screen is negative. Risk Assessment: Do you want to hurt yourself or someone else? Patient reports no desire to harm self or others. Onset of symptoms was October 14, 2020. 07:27 Method Of Arrival: Ambulatory iw 07:27 Acuity: ANCELMO 3 iw Triage Assessment: 08:31 Respiratory: Onset: The symptoms/episode began/occurred gradually, the patient has mild jd3 shortness of breath. Historical: - Allergies: 07:35 Ibuprofen; iw - Home Meds: 07:35 Renvela 800 mg oral tab 3 times per day [Active]; albuterol sulfate 90 mcg/actuation iw Inhl HFAA every 4-6 hours [Active]; Eliquis 5 mg oral tab 2 times per day [Active]; metoprolol succinate 25 mg oral Tb24 1 tab once daily [Active]; famotidine 20 mg Oral tab 1 tab every 12 hours [Active]; cinacalcet oral oral 1 tab before treatment [Active]; pantoprazole 40 mg oral TbEC 1 tab once daily [Active]; Vitamin D3 Oral daily [Active]; Probiotic Oral daily [Active]; - PMHx: 07:35 CHF; dialysis Tues/Thurs/Sat; Hypertension; Renal Disease; iw - PSHx: 07:35 Dialysis access, left arm; iw - Immunization history:: Adult Immunizations up to date. - Social history:: Smoking status: Patient denies any tobacco usage or history of. Screenin:30 Abuse screen: Denies threats or abuse. Nutritional screening: No deficits noted. jd3 Tuberculosis screening: No symptoms or risk factors identified. Fall Risk IV access (20 points). Ambulatory Aid- None/Bed Rest/Nurse Assist (0 pts). Gait- Normal/Bed Rest/Wheelchair (0 pts) Mental Status- Oriented to own ability (0 pts). Total Graham Fall Scale indicates No Risk (0-24 pts). Assessment: 08:20 General: Appears in no apparent distress. comfortable, Behavior is calm, cooperative, jd3 appropriate for age. Pain: Denies pain. Neuro: Level of Consciousness is awake, alert, obeys commands, Oriented to person, place, time, situation. Cardiovascular: Denies chest pain, Capillary refill < 3 seconds Patient's skin is warm and dry. Rhythm is atrial fibrillation with rapid ventricular response. Respiratory: Reports shortness of breath on exertion cough that is persistent Airway is patent Respiratory effort is even, unlabored, Respiratory pattern is regular, symmetrical. GI: No signs and/or symptoms were reported involving the gastrointestinal system. : No signs and/or symptoms were reported regarding the genitourinary system. EENT: No signs and/or symptoms were reported regarding the EENT system. Derm: Skin is intact, Skin is dry, Skin is normal, Skin temperature is warm. Musculoskeletal: Circulation, motion, and sensation intact. Range of motion: intact in all extremities. 09:42 Reassessment: Patient appears in no apparent distress at this time. No changes from jd3 previously documented assessment. Patient and/or family updated on plan of care and expected duration. Pain level reassessed. Patient is alert, oriented x 3, equal unlabored respirations, skin warm/dry/pink. 10:35 Reassessment: Patient appears in no apparent distress at this time. No changes from jd3 previously documented assessment. Patient and/or family updated on plan of care and expected duration. Pain level reassessed. Patient is alert, oriented x 3, equal unlabored respirations, skin warm/dry/pink. 12:20 Reassessment: Patient appears in no apparent distress at this time. Patient and/or jd3 family updated on plan of care and expected duration. Pain level reassessed. Patient is alert, oriented x 3, equal unlabored respirations, skin warm/dry/pink. provider notified of lower blood pressure, no new orders at this time. 12:48 Reassessment: pt ambulated around nurse's station X 2 , SpO2 remains at 100%, BP iw 149/95, IY=[id number]. 13:25 Reassessment: Patient appears in no apparent distress at this time. Patient and/or iw family updated on plan of care and expected duration. Pain level reassessed. Patient is alert, oriented x 3, equal unlabored respirations, skin warm/dry/pink. Vital Signs: 07:27 BP 105 / 68; Pulse 120; Resp 20 S; Temp 97.9; Pulse Ox 99% on R/A; Weight 102.51 kg; iw Height 5 ft. 8 in. (172.72 cm); 08:30 BP 115 / 62; Pulse 107; Resp 20 S; Pulse Ox 99% on R/A; jd3 09:42 BP 117 / 64; Pulse 102; Resp 20 S; Pulse Ox 99% on R/A; jd3 11:32 BP 99 / 60; Pulse 72; Resp 19 S; Pulse Ox 100% on R/A; jd3 12:21 BP 88 / 64; Pulse 108; Resp 19 S; Pulse Ox 98% on R/A; jd3 12:48 BP 149 / 95; Pulse 118; Resp 20 S; Pulse Ox 100% on R/A; iw 07:27 Body Mass Index 34.36 (102.51 kg, 172.72 cm) iw ED Course: 07:13 Patient arrived in ED. as 07:31 Triage completed. iw 07:35 Arm band placed on. iw 07:41 Bryant Bach, RN is Primary Nurse. jd3 07:42 Patient has correct armband on for positive identification. Bed in low position. Call jd3 light in reach. Side rails up X 1. shelter monitor on. Pulse ox on. NIBP on. 07:46 Junaid To MD is Attending Physician. kdr 08:06 CXR XRAY In Process Unspecified. EDMS 08:18 Inserted saline lock: 22 gauge in right antecubital area, using aseptic technique. jd3 Blood collected. 10:57 CT Chest For PE Angio In Process Unspecified. EDMS 12:51 Cesar Rhodes DO is Referral Physician. kdr 13:25 No provider procedures requiring assistance completed. IV discontinued, intact, iw bleeding controlled, No redness/swelling at site. Pressure dressing applied. Administered Medications: 08:28 Drug: NS 0.9% 250 ml Route: IV; Rate: bolus; Site: right antecubital; jd3 09:20 Follow up: Response: No adverse reaction; IV Status: Completed infusion iw Outcome: 12:57 Discharge ordered by . kdr 13:25 Discharged to home via wheelchair. iw 13:25 Condition: stable 13:25 Discharge instructions given to patient, Instructed on discharge instructions, follow up and referral plans. medication usage, Demonstrated understanding of instructions, follow-up care, medications, Prescriptions given X 3. 13:26 Patient left the ED. iw Signatures: Dispatcher [employer] EDMS Junaid To MD MD kdr Mala Estrada Irene, AMIE HOLLOWAY iw Bryant Bach RN RN jd3 Corrections: (The following items were deleted from the chart) 07:38 07:27 BP 105 / 68; Resp 20bpm; Spontaneous; Pulse Ox 99% RA; Temp 97.9F; 102.51 kg; iw Height 5 ft. 8 in.; BMI: 34.3; iw 07:48 07:27 BP 105 / 68; Pulse 65bpm; Resp 20bpm; Spontaneous; Pulse Ox 99% RA; Temp 97.9F; iw 102.51 kg; Height 5 ft. 8 in.; BMI: 34.3; iw
[2020-10-26 13:18] LABS: ALT/SGPT 12 U/L (12-78); AST/SGOT 21 U/L (15-37); BUN Blood Urea Nitrogen 37 mg/dL (7-18); Bicarbonate 28 mmol/L (21-32); Bilirubin Direct 0.2 mg/dL (0-0.2); Bilirubin Total 0.6 mg/dL (0.2-1.0); Glucose Level 82 mg/dL (74-106); Lipase 252 U/L (73-393); Potassium 3.7 mmol/L (3.5-5.1); Protein, Total 7.3 g/dL (6.4-8.2); Sodium Level 139 mmol/L (136-145); Troponin (Emerg Dept Use Only) < 0.02 ng/mL (0.0-0.045)
[2020-10-26 13:21] LABS: Alkaline Phosphatase ND U/L (45-117)
[2020-10-26 13:32] VITALS: TEMP 97.9
[2020-10-26 13:38] VITALS: BP 149/95; O2SAT 100
== END 2020-10-26 13:26 | disposition home or self-care (01) ==
LOC: ER 07:09
DX: U07.1 COVID-19 (principal); I48.91 Unspecified atrial fibrillation; I48.92 Unspecified atrial flutter; I13.2 Hypertensive heart and chronic kidney disease with heart failure and with stage 5 chronic kidney disease, or end stage renal disease; N18.6 End stage renal disease; I50.9 Heart failure, unspecified; Z99.2 Dependence on renal dialysis; Z88.6 Allergy status to analgesic agent
CPT/HCPCS: 96365; 93005; 87040 ×2; 87070; 85025; 80048; 36415; 85610; 85379; 80076; 87081; 83605; 85730; 84484; 82728; 83690; 84145; 86140; 87804 ×2; 71275; 71045; 99284; Q9967; J7050

== ENCOUNTER 2021-11-23 20:44 | Emergency (ER) | payer OTHER ==
[2021-11-23] MEDS ORDERED: Caclcium Chloride 10% INJ SYR IV ONE (20:45)
[2021-11-23] MEDS ORDERED: NA CHLORIDE 0.9% 1,000 ML IV ONE (20:45)
[2021-11-23] MEDS ORDERED: EPINEPHrine 1 MG/10 ML SYR IV ONE (20:45)
--- OUTSIDE RECORDS SUMMARY | 2021-11-23 20:47 | XMS REPORT | Continuity of Care Document ---
:1955 Author Organization [facility] t Address [address] [place] [address] Care Team Providers Name Role Phone ROSINA Attending Clinician Unavailable REILLY Attending Clinician Unavailable SAADIA Attending Clinician Unavailable PRINCE Attending Clinician Unavailable MD RUMA ALMAGUER Attending Clinician Unavailable ROLF Attending Clinician Unavailable SUSANA Attending Clinician Unavailable SAMINA Attending Clinician Unavailable MD Maurizio HAAS Attending Clinician Unavailable SAADIA Admitting Clinician Unavailable ROSINA Admitting Clinician Unavailable MD RUMA ALMAGUER Admitting Clinician Unavailable SHAMEKA Admitting Clinician Unavailable SAMINA Admitting Clinician Unavailable MD Maurizio HAAS Admitting Clinician Unavailable Problems This patient has no known problems. Allergies, Adverse Reactions, Alerts This patient has no known allergies or adverse reactions. Medications This patient has no known medications. Procedures This patient has no known procedures. Encounters Start End Encounter Admission Attending Care Care Encounter Source Date/Time Date/Time Type Type Clinicians Facility Department ID 2021-10-10 2021-10-10 Outpatient ROSINA [facility] [id number] [place] 00:00:00 00:00:00 LOU [facility]26 [facility] 2021-10-10 2021-10-10 Outpatient [facility] [id number] [place] 00:00:00 00:00:[address] 2021-09-24 2021-09-24 Outpatient REILLY [facility] [id number] [place] 00:00:00 00:00:00 BOONE [address] 2021-09-12 2021-09-12 Outpatient SAADIA ESTUARDO [facility] [id number] [place] 00:00:00 00:00:[address] 2021-09-11 2021-09-11 Outpatient ESTUARDO ZEE [facility] [id number] [place] 00:00:00 00:00:[address] 2021-09-11 2021-09-11 Outpatient WOJCIECHOWS [facility] [id number] [place] 00:00:00 00:00:00 KI, [address] 2021-09-10 2021-09-10 Outpatient [facility] [id number] [place] 00:00:00 00:00:[address] 2021-09-02 2021-09-02 Outpatient [facility] [id number] [place] 00:00:00 00:00:[address] 2021-08-27 2021-08-27 Outpatient [facility] [id number] [place] 00:00:00 00:00:[address] 2021-07-16 2021-07-16 Outpatient [facility] [id number] [place] 00:00:00 00:00:[address] 2021-06-27 2021-06-27 Outpatient ROSINA, [facility] [id number] [place] 00:00:00 00:00:00 LOU [address] 2021-06-25 2021-06-25 Outpatient ROSINA, [facility] [id number] [place] 00:00:00 00:00:00 LOU [address] 2021-06-25 2021-06-25 Outpatient REILLY, [facility] [id number] [place] 00:00:00 00:00:00 BOONE [address] 2021-06-14 2021-06-14 Outpatient [facility] [id number] [place] 00:00:00 00:00:[address] 2021-06-11 2021-06-11 Outpatient [facility] [id number] [place] 00:00:00 00:00:[address] 2021-06-06 2021-06-06 Outpatient ROSINA, [facility] [id number] [place] 00:00:00 00:00:00 LOU [address] 2021-06-04 2021-06-04 Outpatient ROSINA, [facility] [id number] [place] 00:00:00 00:00:00 LOU [address] 2021-05-162021-05-22 Inpatient ROLF, [facility] [id number] [place] 00:00:00 00:00:00 YAMUNA [address] 2021-05-14 2021-05-14 Outpatient ROSINA, [facility] [id number] [place] 00:00:00 00:00:00 LOU [address] 2021-05-14 2021-05-14 Outpatient ALMAGUER, [facility] [id number] [place] 00:00:00 00:00:00 LOU [address] 2021-05-09 2021-05-09 Outpatient ALMAGUER, [facility] [id number] [place] 00:00:00 00:00:00 LOU [address] 2021-03-25 2021-03-25 Outpatient [facility] [id number] [place] 00:00:00 00:00:[address] 2021-02-18 2021-02-18 Outpatient [facility] [id number] [place] 00:00:00 00:00:[address] 2021-02-01 2021-02-01 Outpatient ALMAGUER, [facility] [id number] [place] 00:00:00 00:00:00 LOU [address] 2021-01-30 2021-01-30 Outpatient ALMAGUER, [facility] [id number] [place] 00:00:00 00:00:00 LOU [address] 2021-01-02 2021-01-02 Outpatient ALMAGUER, [facility] [id number] [place] 00:00:00 00:00:00 LOU [address] 2020-12-03 2020-12-03 Outpatient ALMAGUER, [facility] [id number] [place] 00:00:00 00:00:00 LOU [address] 2020-11-23 2020-11-23 Outpatient ALMAGUER, [facility] [id number] [place] 00:00:00 00:00:00 LOU [address] 2020-11-21 2020-11-21 Outpatient ALMAGUER, [facility] [id number] [place] 00:00:00 00:00:00 LOU [address] 2020-11-21 2020-11-21 Outpatient ALMAGUER, [facility] [id number] [place] 00:00:00 00:00:00 LOU 653 [facility] 2020-11-07 2020-11-07 Outpatient ROSINA, [facility] [id number] [place] 00:00:00 00:00:00 LOU 309 [facility] 2020-10-29 2020-10-29 Outpatient SUSANA, [facility] [id number] [place] 00:00:00 00:00:00 IRWINER 000 [address] 2020-10-03 2020-10-03 Outpatient [facility] [id number] [place] 00:00:00 00:00:00 580 [facility] 2020-09-17 2020-09-17 Outpatient SAMINA, [facility] [id number] [place] 00:00:00 00:00:00 SADIQ 943 [facility] 2020-09-05 2020-09-05 Outpatient SAMINA, [place] [id number] [place] 00:00:00 00:00:00 SADIQ 102 [facility] i 2020-09-03 2020-09-03 Outpatient SAMINA, [facility] [id number] [place] 00:00:00 00:00:00 SADIQ 751 [facility] i 2020-08-31 2020-08-31 Outpatient SAMINA, [facility] [id number] [place] 00:00:00 00:00:00 SADIQ 752 [facility] i 2020-08-27 2020-08-27 Outpatient SAMINA, [facility] [id number] [place] 00:00:00 00:00:00 SADIQ 262 [facility] i Results Test Description Test Time Test Comments Results Result Comments Source SARS-CoV-2 (COVID-19) RNA [Presence] in Respiratory sp ecimen by 2021-06-25 20:25:11 JUSTINO with probe detection Test Item Value Reference Range Interpretation Comme nts SARS-CoV-2 (COVID-19) RNA [Presence] in Respiratory Not detected No t-Detected specimen by JUSTINO with probe detection (test code = 13328-4) Whether patient is employed in a healthcare setting (test code = 83976-6) Whether the patient has symptoms related to condition of interest (test code = 63192-9) Patient was hospitalized because of this condition (test code = 26672-6) Whether the patient was admitted to intensive care unit (ICU) for condition of interest (test code = 35400-7) Whether patient resides in a congregate care setting (test code = 51508-9) SARS-CoV-2 (COVID-19) RNA [Presence] in Respiratory specimen by JUSTINO with probe [id number] 14:20:40 Test Item Value Reference Range Interpretation Comments SARS-CoV-2 (COVID-19) RNA Not detected Not-Detected [Presence] in Respiratory specimen by JUSTINO with probe detection (test code = 09233-8) Whether patient is employed in a healthcare setting (test code = 75648-5) Whether the patient has symptoms related to condition of interest (test code = 55835-5) Patient was hospitalized because of this condition (test code = 63746-2) Whether the patient was admitted to intensive care unit (ICU) for condition of interest (test code = 73859-4) Whether patient resides in a congregate care setting (test code = 77496-5) SARS-CoV-2 (COVID-19) RNA [Presence] in Respiratory specimen by JUSTINO with probe [id number] 17:28:15 Test Item Value Reference Range Interpretation Comments SARS-CoV-2 (COVID-19) RNA Not detected Not-Detected [Presence] in Respiratory specimen by JUSTINO with probe detection (test code = 42497-8) Whether patient is employed in a healthcare setting (test code = 50815-8) Whether the patient has symptoms related to condition of interest (test code = 59403-4) Patient was hospitalized because of this condition (test code = 85850-3) Whether the patient was admitted to intensive care unit (ICU) for condition of interest (test code = 53326-2) Whether patient resides in a congregate care setting (test code = 98862-8) SARS-CoV-2 (COVID-19) RNA [Presence] in Respiratory specimen by JUSTINO with probe [id number] 17:33:01 Test Item Value Reference Range Interpretation Comments SARS-CoV-2 (COVID-19) RNA Not detected Not-Detected [Presence] in Respiratory specimen by JUSTINO with probe detection (test code = 02472-9) SARS-CoV-2 (COVID-19) RNA [Presence] in Respiratory specimen by JUSTINO with probe [id number] 14:41:46 Test Item Value Reference Range Interpretation Comments SARS-CoV-2 (COVID-19) RNA Not detected Not-Detected [Presence] in Respiratory specimen by JUSTINO with probe detection (test code = 39108-9)
[2021-11-23] MEDS ORDERED: NOREPINEPHRINE 4mg/D5W 250mL 4 MG/250 ML BAG IV ONE (20:51)
[2021-11-23] MEDS ORDERED: DEXTROSE 10%-WATER 500 ML IV ONE (20:58)
[2021-11-23] MEDS ORDERED: D10W 250 ML IV ONE (21:08)
--- NOTE | 2021-11-23 21:16 | EDPHYS ---
Physician Documentation [facility] Name: Erick Benson Age: 66 yrs Sex: Male : 1955 Arrival Date: 11/23/2021 Time: 20:46 Bed 3 Private MD: ED Physician Kana Burnham HPI: 11/23 21:35 This 66 yrs old Black Male presents to ER via EMS with complaints of CPR in progress. rn 21:36 Preceding the arrest, the patient was found down by family. The arrest occurred at rn home. Pre-hospital course: The arrest was not witnessed by others. EMS care prior to arrival: initiation of ACLS, peripheral IV, oxygen, ACLS has been in progress for 35 minutes. It is unknown whether or not the patient has had similar symptoms in the past. EMS reports found down by family, agonal breathing, no pulse, ACLS initiated, paced rhythm, no pulse, obtained 3 possible ROSC, but fleeting, not consistent, attempted intubation but unsuccessful in field. Given epinephrine/calcium/bicarb. - Unable to obtain history due to: unresponsive. ROS: 21:36 Unable to obtain ROS due to comatose state. rn Exam: 21:36 Constitutional: This is a well developed, well nourished patient who is unresponsive, rn GCS 3. Head/Face: Normocephalic, atraumatic. Eyes: Pupils equal round, nonreactive Cardiovascular: NO spont pulse or cardiac activity on bedside ultrasound Respiratory: No spont breaths, + bilateral breath sounds with bagging Abdomen/GI: soft, non-distended Skin: Cool, no cyanosis MS/ Extremity: Pulses absent Neuro: GCS 3 Vital Signs: 20:40 BP 52 / 22; Pulse 116; as6 20:50 BP 93 / 45; Pulse 110; Resp 24 A; as6 20:53 BP 119 / 49; Pulse 132; Resp 22 A; Pulse Ox 98% on 15 lpm ETT ambu; as6 20:57 BP 123 / 49; Pulse 61; Resp 26 A; Pulse Ox 93% on 15 lpm ETT ambu; as6 21:00 BP 192 / 82; Pulse 66; Resp 22 A; Pulse Ox 92% on 15 lpm ETT ambu; as6 21:07 BP 245 / 196; Pulse 60; Resp 20 A; Pulse Ox 97% on 15 lpm ETT ambu; 6 Procedures: 21:36 CPR: See CPR flow sheet. Initial patient assessment: unresponsive, no respiratory rn effort, Ambu ventilation, pulses present w/ compressions, The presenting cardiac rhythm is PEA. respirations assisted with BVM, Compressions: began prior to arrival. Meds given: See Meds list. Epinephrine despite ED evaluation and treatment, the patient . Family notified. CPR was stopped at 21:15. Bedside ECHo performed, no cardiac activity and no peripheral blood flow noted following last 5 rounds of CPR/ACLS. Intubation: Ventilated with 100% NRB prior to procedure. Intubated orally using # 4 Nadege blade with 7.5 mm ETT. was successful on first attempt. Cricoid pressure applied during procedure. Tube secured at right side of mouth measured 22 cm at teeth. Placement verified by CO2 detector with (+) color change, auscultating bilateral breath sounds, O2 saturation after procedure was 99 %. Patient tolerated well. Central Line: the site was prepped with Betadine, in sterile fashion, a triple lumen catheter was inserted, in the right femoral vein, in 1 attempts. placement was verified, by blood return, the site was dressed with Tegaderm, using sterile technique, the patient tolerated the procedure, well. MDM: 21:04 Patient medically screened. rn 21:36 Differential diagnosis: arrythmia, cardiac arrest, respiratory arrest, hypoglycemia, rn hyperkalemia. Data reviewed: vital signs, nurses notes, lab test result(s), finger stick glucose, and as a result, I will discharge patient. Counseling: I had a detailed discussion with the patient and/or guardian regarding: the historical points, exam findings, and any diagnostic results supporting the discharge/admit diagnosis. Response to treatment: There is no appreciated change of the patient's symptoms at this time. ED course: Pt given multiple doses of glucose until normal, no response, took quite a bit of glucose administration. . 11/23 21:28 Order name: Glucose, Ancillary Testing EDMS Administered Medications: 20:46 Drug: D50W 50 ml Route: IVP; Site: Other; 11/24 01:27 Follow up: Response: No adverse reaction as11/23 20:49 Drug: NS 0.9% 1000 ml Route: IV; Rate: 1 bolus; Site: Other; as6 21:04 Follow up: Response: No adverse reaction; IV Status: Completed infusion; IV Intake: as6 1000ml 20:52 Drug: EPINEPHrine 0.1mg/mL 1:10,000 1 mg Route: IVP; Site: Other; 11/24 01:28 Follow up: Response: No adverse reaction 11/23 20:52 Drug: Sodium Bicarbonate 1 amp Route: IVP; Site: Other; 11/24 01:28 Follow up: Response: No adverse reaction 11/23 20:52 Drug: Calcium Chloride 1 grams Route: IVP; Site: Other; 11/24 01:28 Follow up: Response: No adverse reaction 11/23 20:55 Drug: EPINEPHrine 0.1mg/mL 1:10,000 1 mg Route: IVP; Site: Other; 11/24 01:28 Follow up: Response: No adverse reaction 11/23 20:58 Drug: EPINEPHrine 0.1mg/mL 1:10,000 1 mg Route: IVP; Site: right forearm; 11/24 01:29 Follow up: Response: No adverse reaction 11/23 21:02 Drug: EPINEPHrine 0.1mg/mL 1:10,000 1 mg Route: IVP; Site: right femoral; 11/24 01:29 Follow up: Response: No adverse reaction 11/23 21:05 Drug: EPINEPHrine 0.1mg/mL 1:10,000 1 mg Route: IVP; Site: right femoral; 11/24 01:29 Follow up: Response: No adverse reaction 11/23 21:06 Drug: D50W 50 ml Route: IVP; Site: right femoral; 11/24 01:29 Follow up: Response: No adverse reaction 11/23 21:08 Drug: EPINEPHrine 0.1mg/mL 1:10,000 1 mg Route: IVP; Site: right femoral; 11/24 01:29 Follow up: Response: No adverse reaction 11/23 21:11 Drug: EPINEPHrine 0.1mg/mL 1:10,000 1 mg Route: IVP; Site: right femoral; 11/24 01:29 Follow up: Response: No adverse reaction Point of Care Testing: Blood Glucose: 11/23 20:43 Blood Glucose: Low (<40 mg/dL); as6 21:03 Blood Glucose: 64 mg/dL; as6 21:13 Blood Glucose: 95 mg/dL; as6 Ranges: Critical Glucose Levels:Adult <50 mg/dl or >400 mg/dl <40 mg/dl or >180 mg/dl Disposition: 21:15 . rn 21:44 Critical Care:. 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 Total rn time: 40 minutes Signatures: Kana Burnham MD MD rn Slawson, Ashby, AMIE RN as6
--- NOTE | 2021-11-24 00:21 | ER ---
Nurse's Notes [facility] Name: Erick Benson Age: 66 yrs Sex: Male : 1955 Arrival Date: 11/23/2021 Time: 20:46 Bed 3 Private MD: Diagnosis: Cardiac arrest, cause unspecified;Hypoglycemia, unspecified Presentation: 11/23 20:40 Chief complaint: EMS states: called out for difficulty breathing. on seen pt was guppy as6 breathing, EMS attempted to intubated, unsuccessful, pt lost a pulse in route to ER. Ems started compressions. 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 EMS gave 4 rounds of eip, 1 bicarb, 1 calcium gluconate. 20:40 Care prior to arrival: Assisted ventilation, Oral airway placed, CPR via thumper and is as6 still in progress Medication(s) given: Normal saline infusion, epi, bicarb, calcium gluconate IV initiated. IO Oxygen administered. via AMBU bag. Compressions began prior to arrival. 20:40 Method Of Arrival: EMS: [facility] as6 20:40 Acuity: ANCELMO 1 as6 - Unable to obtain history due to: unresponsive. Assessment: 20:40 CPR assessment: unresponsive, pupils fixed \T\ dilated, Ambu ventilation. as6 20:40 Cardiac rhythm is PEA. as6 20:51 Cardiovascular: Rhythm is PEA. as6 20:53 Cardiovascular: Rhythm is PEA. as6 20:55 Cardiovascular: Rhythm is PEA. as6 20:57 Cardiovascular: Rhythm is PEA. as6 20:59 Cardiovascular: Rhythm is PEA. as6 21:03 Cardiovascular: Rhythm is PEA. as6 21:06 Cardiovascular: Rhythm is PEA. as6 21:08 Cardiovascular: Rhythm is PEA. as6 21:11 Cardiovascular: Rhythm is PEA. as6 21:14 Cardiovascular: Rhythm is PEA. 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 . as6 Vital Signs: 20:40 BP 52 / 22; Pulse 116; as6 20:50 BP 93 / 45; Pulse 110; Resp 24 A; as6 20:53 BP 119 / 49; Pulse 132; Resp 22 A; Pulse Ox 98% on 15 lpm ETT ambu; as6 20:57 BP 123 / 49; Pulse 61; Resp 26 A; Pulse Ox 93% on 15 lpm ETT ambu; as6 21:00 BP 192 / 82; Pulse 66; Resp 22 A; Pulse Ox 92% on 15 lpm ETT ambu; as6 21:07 BP 245 / 196; Pulse 60; Resp 20 A; Pulse Ox 97% on 15 lpm ETT ambu; as6 ED Course: 20:46 Patient arrived in ED. ds4 20:46 Intubation: 7.5 Fr. ETT placed orally. Performed by Kana Burnham MD Successful on first as6 attempt. Placement verified by CO2 detector w/ + color change, auscultating bilateral breath sounds, Ventilated with Ambu bag. 22 at the teeth . 20:56 Inserted saline lock: 20 gauge in right wrist, using aseptic technique. Blood collected.as6 20:57 Assisted provider with central line placement. Set up central line tray. Triple lumen as6 line placed in right femoral. Line placed by Kana Burnham MD Placement verified by blood return, Dressed with Tegaderm, Blood was collected. 21:04 Kana Burnham MD is Attending Physician. rn 21:15 Kana Burnham MD is Pronouncing Provider. rn 21:24 Dima Gerardo RN is Primary Nurse. as6 21:31 Triage completed. as6 Administered Medications: 20:46 Drug: D50W 50 ml Route: IVP; Site: Other; 11/24 01:27 Follow up: Response: No adverse reaction 11/23 20:49 Drug: NS 0.9% 1000 ml Route: IV; Rate: 1 bolus; Site: Other; as6 21:04 Follow up: Response: No adverse reaction; IV Status: Completed infusion; IV Intake: as6 1000ml 20:52 Drug: EPINEPHrine 0.1mg/mL 1:10,000 1 mg Route: IVP; Site: Other; 11/24 01:28 Follow up: Response: No adverse reaction 11/23 20:52 Drug: Sodium Bicarbonate 1 amp Route: IVP; Site: Other; 11/24 01:28 Follow up: Response: No adverse reaction 11/23 20:52 Drug: Calcium Chloride 1 grams Route: IVP; Site: Other; 11/24 01:28 Follow up: Response: No adverse reaction 11/23 20:55 Drug: EPINEPHrine 0.1mg/mL 1:10,000 1 mg Route: IVP; Site: Other; 11/24 01:28 Follow up: Response: No adverse reaction 6 11/23 20:58 Drug: EPINEPHrine 0.1mg/mL 1:10,000 1 mg Route: IVP; Site: right forearm; 11/24 01:29 Follow up: Response: No adverse reaction 11/23 21:02 Drug: EPINEPHrine 0.1mg/mL 1:10,000 1 mg Route: IVP; Site: right femoral; 11/24 01:29 Follow up: Response: No adverse reaction 11/23 21:05 Drug: EPINEPHrine 0.1mg/mL 1:10,000 1 mg Route: IVP; Site: right femoral; 11/24 01:29 Follow up: Response: No adverse reaction 11/23 21:06 Drug: D50W 50 ml Route: IVP; Site: right femoral; 11/24 01:29 Follow up: Response: No adverse reaction 11/23 21:08 Drug: EPINEPHrine 0.1mg/mL 1:10,000 1 mg Route: IVP; Site: right femoral; 11/24 01:29 Follow up: Response: No adverse reaction 11/23 21:11 Drug: EPINEPHrine 0.1mg/mL 1:10,000 1 mg Route: IVP; Site: right femoral; 11/24 01:29 Follow up: Response: No adverse reaction as6 Point of Care Testing: Blood Glucose: 11/23 20:43 Blood Glucose: Low (<40 mg/dL); as6 21:03 Blood Glucose: 64 mg/dL; as6 21:13 Blood Glucose: 95 mg/dL; as6 Ranges: Intake: 21:04 IV: 1000ml; Total: 1000ml. as6 Outcome: 21:15 Outcome Patient as6 21:15 Patient : Time of 21:15 Pronounced by Kana Burnham MD Body to home.as6 21:15 Condition: as11/24 00:21 Patient left the ED. as6 Signatures: Kana Burnham MD MD rn Swanson, Donovan 4 Dima Gerardo RN RN as6
[2021-11-24 00:51] VITALS: BP 245/196; O2SAT 97
== END 2021-11-24 00:21 | disposition expired ==
LOC: ER 20:44
DX: I46.9 Cardiac arrest, cause unspecified (principal); E16.2 Hypoglycemia, unspecified
CPT/HCPCS: 82947; 31500; 92950; 99291; J0171; J7799; J7030